=== PATIENT | female | born 1945 | race Caucasian/White ===

== ENCOUNTER 2016-12-23 14:05 | Inpatient (IN) | payer OTHER, MEDICARE, MEDICAID ==
[~2016-12-23] VITALS: Ht 165.1 cm; Wt 85.6 kg
[~2016-12-23 14:05] MED LIST: CEPH-512 PO
[2016-12-23 14:11] VITALS: BP 108/44; PULSE 73; RESP 21; O2SAT 100
--- NOTE | 2016-12-23 14:31 | ED.REPORT ---
HPI-Trauma Minor / Fall Date of Service Dec 23, 2016 ED Provider: Dr. Constantino A 71 year old female with a history of UTI and chronic kidney disease presents to the ED via EMS complaining of severe right hip pain onset 1 week ago after the patient experienced GLF. Pain is rated 8/10 and has prevented the patient from being able to walk or sleep. She reports being barely able to move. She has not showered since the GLF, and her son has been cleaning her with wipes after she uses the bathroom. She has dramatic skin irritation with breakdown and heavy purulent discharge in between her legs. She reports no dysuria. Nursing Notes Stated Complaint: HIP PAIN Chief Complaint: Extremity Trauma Nursing Notes Reviewed: Yes Allergies: Coded Allergies: Penicillins (Verified Allergy, Unknown, 03/11/15) peanut (Verified Allergy, Unknown, 03/11/15) Scheduled Naproxen (Naproxen) 250 Mg Tablet 500 MG PO QID "TAKES 2 EVERY 4 HOURS WHILE AWAKE" General Time Seen by MD: 14:30 Chief Complaint Extremity pain (right hip pain) Hx Obtained From: Patient, Spouse, EMS Arrived By: Ambulance Onset Occurred: 1 week ago Symptom Duration: Since onset Location: Hip right Severity: Current: Pain level 8 out of 10 Severity: Maximum: Pain level 8 out of 10 Recent Healthcare: No recent doctor visit Similar Sx Previous: No Past Medical History Past Medical History Notes: Allergic to penicillin. She has taken Percoet before. Past Medical History Chronic kidney disease History of UTI Alcohol abuse, sober fro 22 years. Reports: Asthma Reports: Dementia Smoking History Never Smoker Social History Alcohol Use: Denies alcohol use (sober for 22 years) Drug Use: Denies drug use Review of Systems Review of Systems Note: Difficulty walking due to pain. Difficulty sleeping due to pain. Constitutional: Denies: Chills, Fever Musculoskeletal: Reports: Extremity pain (Right hip pain) Skin: Reports Rash (Irritation Inbetween legs) Complete sys rev & neg: except as marked. Physical Exam Physical Exam Notes: Initial Vital Signs Vital Signs (First) Date Time Temp Pulse Resp B/P Pulse Ox O2 Delivery O2 Flow Rate FiO2 12/23/16 14:11 36.5 73 21 108/44 100 Room Air Initial VS: Reviewed General/Constitutional: Awake Alertness: Positive: Confused (unclear if this is new, or baseline) Neck: Atraumatic, Full range of motion Head / Eyes: Atraumatic, Normocephalic, PERRL, EOMI ENT: Atraumatic, Mucous membranes moist Respiratory / Chest: Atraumatic, Breath sounds NL, Breath sounds = bilat, No respiratory distress, No rales, No rhonchi, No wheezing Cardiovascular: Heart rate NL, Regular rhythm, Heart sounds NL, No gallop, No murmurs, No rubs Abdomen: Soft, No guarding, No rebound Right Hip: Positive: Tenderness present... (Patient is quite tender over her right hip, to the point where she is not able to move.) no abrasions or contusions over the right hip. Dramatic excoriation, discharge and purulence involving inguinal fold, mons pubis, perineum with some extention up to the perirectal/sacral area Interpretation & Diagnostics Lab Results Interpretation Result Diagram: 12/23/16 1700 12/23/16 1700 Test 12/23/16 17:00 12/23/16 17:10 White Blood Count 10.0th/mm3 (3.8-10.1) Red Blood Count 3.46mil/mm3 (3.90-5.20) Hemoglobin 10.0g/dL (12.0-15.6) Hematocrit 32.7% (35.0-46.0) Mean Corpuscular Volume 94.5fL (81-100) Mean Corpuscular Hemoglobin 28.9pg (27.0-35.0) Mean Corpuscular Hemoglobin Concent 30.6% (32.0-37.0) Red Cell Distribution Width 13.1% (12.3-15.4) Platelet Count 463bil/L (150-400) Neutrophils (%) (Auto) 75.2% (40-74) Lymphocytes (%) (Auto) 10.4% (14-46) Monocytes (%) (Auto) 7.5% (4-12) Eosinophils (%) (Auto) 1.2% (0-5) Basophils (%) (Auto) 0.7% (0-3) Reticulocyte Count,Calculated 1.6% (0.6-2.6) Hold Purple Top Tube Received (Received) Hold Blue Top Tube Received (Received) Sodium Level 135mEq/L (134-144) Potassium Level 5.0mEq/L (3.5-5.2) Chloride Level 106mEq/L (97-108) Carbon Dioxide Level 13mmol/L (18-29) Blood Urea Nitrogen 58mg/dL (8-27) Creatinine 5.88mg/dL (0.57-1.00) Estimat Glomerular Filtration Rate 10mL/min (>59) Glucose Level 94mg/dL (60-99) Lactic Acid Level 0.6mmol/L (0.4-2.0) Calcium Level 8.7mg/dL (8.5-10.1) Magnesium Level 2.1mg/dL (1.6-2.6) Total Bilirubin 0.4mg/dL (0.0-1.2) Aspartate Amino Transf (AST/SGOT) 12U/L (0-50) Alanine Aminotransferase (ALT/SGPT) 7U/L (0-32) Alkaline Phosphatase 112U/L (25-165) Total Protein 7.5g/dL (6.4-8.4) Albumin 2.6g/dL (3.4-5.0) Lipase 81U/L (13-60) Hold [place] Top Tube Received (Received) Hold [place] Top Tube Received (Received) Urine Color Yellow (YELLOW) Urine Appearance Turbid (CLEAR,HAZY) Urine pH 7.5 (5.0-8.0) Urine Specific [place] 1.020 (1.003-1.035) Urine Protein >300mg/dL (NEG,TRACE) Urine Glucose (UA) Negativemg/dL (NEGATIVE) Urine Ketones Negativemg/dL (NEGATIVE) Urine Occult Blood Moderate (NEGATIVE) Urine Nitrite Negative (NEGATIVE) Urine Bilirubin Negative (NEGATIVE) Urine Urobilinogen Normalmg/dL (NORMAL) Urine Leukocyte Esterase Moderate (NEGATIVE) Urine RBC 3-10/hpf (0-2) Urine WBC Packed/hpf (0-5) Urine Epithelial Cells Many/hpf (NONE-MOD) Urine Crystals None seen (NONE SEEN) Urine Bacteria Many/hpf (NONE-FEW) Urine Hyaline Casts None/lpf (NONE) Urine Granular Casts None seen (NONE SEEN) Urine Waxy Casts None seen (NONE SEEN) Urine Red Blood Cell Casts None seen (NONE SEEN) Urine White Blood Cell Casts None seen (NONE SEEN) Urine Mucus None seen (None Seen) Urine Trichomonas None seen (NONE SEEN) Urine Yeast None (NONE SEEN) Urinalysis Comment Amorphous sediment Urine Culture Reflexed Indicated X-Ray Interpretation Xray Interpretation: PROCEDURE: X-RAY PELVIS W/LAT HIP (RT) ([id number]) IMPRESSION: Suspect a displaced fracture of the superior acetabulum. Dictated by: Enrique Patel M.D. on 12/23/2016 at 15:26 Approved by: Enrique Patel M.D. on 12/23/2016 at 15:33 Interpretation / Wet Read by: Interpret - Radiologist CT Abd / Pelvis Interpretation IMPRESSION: 1. No right hip fracture is evident. If there remains high clinical concern for a subtle right hip fracture, please consider obtaining an MRI of the hip for better evaluation. 2. Mild to moderate degenerative changes and osteopenia of the imaged bony structures of the pelvis. 3. Prominent thickening of the urinary bladder wall with surrounding edema and corresponding distal bilateral hydroureter and periureteral edema is suspicious for an ascending urinary tract infection. An infiltrative/neoplastic process is felt to be less likely, but cannot be completely excluded. Please correlate clinically. Dictated by: Satya Mccarthy M.D. on 12/23/2016 at 15:17 Approved by: Satya Mccarthy M.D. on 12/23/2016 at 15:25 Interpretation / Wet Read by: Interpret - Radiologist Re-Eval/Medical Decision Med Decision/Clinical Course 71-year-old woman presents 1 week after a fall complaining of severe right hip pain progressing to the point where she is unable to walk. Initial x-rays suggest an acetabular fracture. Follow-up CT scan suggests no fracture that inflamed bladder with hydronephrosis. Labs are obtained and show no elevated white count but new renal failure. Dramatic excoriation in the perineum and inguinal areas. Nursing staff has gently cleaned and appropriately dressed the area with placement of Barakat. Gross purulence from Barakat. No fever no hypertension no tachycardia unclear of her confusion is related to infectious disease are as her baseline dementia and related to pain. Unclear what exactly is going on with her bladder and the infection that appears to be a descending rather than descending and acute pyelonephritis at this point. Please placed fluids are continued antibiotics in the form of ceftriaxone are started. Purulent discharge is cultured dressings and wound care will be needed for the perineal excoriations. Findings and concerns . With patient and her son. She will be admitted for additional care. We will need nephrology consult and may in fact need urology consult given the swollen bladder and hydronephrosis findings on CT scan Source of Hx: Old records, EMS Re-Evaluation/Progress : Time of Eval: 15:51 Re-Evaluation/Progress Note: Rechecked patient. She has been able to use the bathroom in bed campuzano. Explained possible fracture. Explained reasoning for ordering CT. Explained plan for admission. Patient understands and agrees with the plan. All questions addressed. Consultation : Referral / Consult Name: Giovanna Mackey MD Consulted With: Hospitalist Call Returned at: 18:24 Transportation Officer: Agrees with eval, Agrees with plan, Accepts admit Note: Dsicussed patient case with Dr. Mackey who accepts patient admit. Counseled Regarding: Diagnosis, Lab results, Need for follow-up, Need for admission Discharge & Departure Impression: Primary Impression: Acute renal failure Additional Impressions: UTI (urinary tract infection) Bilateral hydronephrosis Skin breakdown Ruled Out: Hip fracture, Acetabular fracture Disposition: ADMITTED TO HOSPITAL Discharge Condition All VS Reviewed: Yes Condition: Stable Referrals: Maximiliano Nagel MD (PCP) Girish Attestation Portions of this note were transcribed by Alfred Brooks. I, Dr. Constantino personally performed the history, physical exam and medical decision-making; I reviewed and confirmed the accuracy of the information in the transcribed note. Signed by: Girish Taylor, 12/23/2016, 1843. copies to: Maximiliano Nagel MD, Shawna L MD Dec 23, 2016 14:31 Alfred Brooks Dec 23, 2016 14:37
[2016-12-23] MEDS ORDERED: oxyCODONE-Acetamin 5-325 mg Tablet PO ONE (14:40)
--- NOTE | 2016-12-23 15:35 | DRSVH ---
PROCEDURE: X-RAY PELVIS W/LAT HIP (RT) ([id number]) INDICATIONS: pain, fell one week ago TECHNIQUE: AP pelvis with lateral view(s) of the right hip(s). COMPARISON: None. FINDINGS: Bones: There is cortical irregularity above the superior acetabulum and appearance of a displaced fra gment. No dislocations. Pelvic ring appears intact. No suspicious bony lesions. Soft tissues: The visualized bowel gas pattern is normal. No suspicious soft tissue calcifications. Scattered colonic diverticula are noted. IMPRESSION: Suspect a displaced fracture of the superior acetabulum. Dictated by: Enrique Patel M.D. on 12/23/2016 at 15:26 Approved by: Enrique Patel M.D. on 12/23/2016 at 15:33
--- NOTE | 2016-12-23 16:26 | DRSVH ---
PROCEDURE: CT PELVIS WITHOUT CONTRAST ([id number]) INDICATIONS: suspected acetabular fracture, pain in hip TECHNIQUE: After the administration of oral contrast, 5 mm thick sections acquired from the iliac crests to the symphysis. 5 mm coronal and sagittal reformats were then performed. For radiation dose reduction, t he following was used: automated exposure control, adjustment of mA and/or kV according to patient s ize. COMPARISON: [facility], CR, XR PELVIS W LATERAL HIP RT, 12/23/2016, 15:07. FINDINGS: Image quality: Diagnostic. Soft tissues: Included soft tissues of the pelvis demonstrates aortic and iliac atherosclerosis. Im aged bowel loops are nondilated. No free fluid, loculated fluid collection or free air is evident. No lymphadenopathy is identified. No significant inguinal hernias are evident. The uterus and ovari es are not enlarged. There is prominence of the urinary bladder wall, which is not well evaluated on this exam with possible surrounding edema within the adjacent mesentery. Additionally, there is dil atation of the distal ureters with thickening of the urothelial ortiz and periureteral edema. Scatte red subcutaneous calcifications are evident on the posterior aspect of the pelvis and within the hesham on of the umbilicus. Bones: The bone mineralization is diffusely decreased throughout the pelvis, which does result in dif ficulty evaluating for very subtle fractures of the head, acetabulum, or other pelvic bones. However , no displaced or definite fracture is identified involving the osseous structures of the right hip. Specifically, the superior acetabulum appears to be intact. The remainder of the imaged osseous str uctures of the pelvis are otherwise within normal limits. Specifically, the superior and inferior pu bic rami on the right are intact. There are mild to moderate degenerative changes of the bilateral h ips and sacroiliac joints. Moderate degenerative changes of the included lower lumbar spine are pres ent. IMPRESSION: 1. No right hip fracture is evident. If there remains high clinical concern for a subtle right hip fracture, please consider obtaining an MRI of the hip for better evaluation. 2. Mild to moderate degenerative changes and osteopenia of the imaged bony structures of the pelvis. 3. Prominent thickening of the urinary bladder wall with surrounding edema and corresponding distal bilateral hydroureter and periureteral edema is suspicious for an ascending urinary tract infection. An infiltrative/neoplastic process is felt to be less likely, but cannot be completely excluded. Pl ease correlate clinically. Dictated by: Satya Mccarthy M.D. on 12/23/2016 at 15:17 Approved by: Satya Mccarthy M.D. on 12/23/2016 at 15:25
[2016-12-23 17:27] VITALS: BP 128/74; PULSE 71; RESP 21; O2SAT 98
[2016-12-23] MEDS ORDERED: 0.9% Sodium Chloride 1,000 ML IV ONE ×2 (17:32→18:14)
[2016-12-23 17:45] LABS: APPEARANCE,URINE TURBID (CLEAR,HAZY); COLOR,URINE YELLOW (YELLOW); OCCULT BLOOD,URINE MODERATE (NEGATIVE); PH,URINE 7.5 (5.0-8.0); UROBILINOGEN,URINE NORMAL (NORMAL)
[2016-12-23 17:47] LABS: EOSINOPHILS % (AUTO) 1.2 % (0-5)
[2016-12-23 17:48] LABS: Magnesium 2.1 mg/dL (1.6-2.6)
[2016-12-23 17:50] LABS: BASOPHILS % (AUTO) 0.7 % (0-3); MONOCYTES % (AUTO) 7.5 % (4-12); Mean Corpuscular Hemoglobin 28.9 pg (27.0-35.0); Mean Corpuscular Volume 94.5 fL (81-100); NEUTROPHILS % (AUTO) 75.2 % (40-74); Platelet Count 463 bil/L (150-400)
[2016-12-23] MEDS: HYDROmorphone 0.5 mg/0.5 mL iSecure Syringe IVPUSH PRN (17:57)
[2016-12-23] MEDS ORDERED: cefTRIAXone Inj 2,000 MG in Dextrose 5% Minibag Plus 50 ML IV ONE (18:15)
[2016-12-23] MEDS ORDERED: NAPR250T PO (18:58)
[2016-12-23] MEDS ORDERED: Ondansetron 2 mg/mL 2 mL Inj IVPUSH PRN (19:00)
[2016-12-23] MEDS ORDERED: Alum-Mag Hydrox-Simeth 30 mL Suspension PO PRN (19:00)
[2016-12-23] MEDS ORDERED: Polyethylene Glycol (PEG) 17 Gm Powder PO PRN (19:00)
[2016-12-23] MEDS ORDERED: 0.9% Sodium Chloride 1,000 ML IV SCH (19:00)
[2016-12-23 19:09] VITALS: BP 135/65; PULSE 81; RESP 17; O2SAT 98
[2016-12-23 19:52] VITALS: BP 135/65; PULSE 81; RESP 17; O2SAT 98
--- NOTE | 2016-12-23 19:52 | PCM.HPMED ---
Subjective Date of Service Dec 23, 2016 Primary Provider: Admitting Physician: Primary Care Physician: Maximiliano Nagel MD Attending Physician: History of Present Illness: Chief Complaint: RIght Hip hurts HISTORY was OBTAINED FROM PATIENT-poor historian / [employer] NOTES History of present illness: 71-year-old female complained of falling a week ago and complaining that her right hip hurt. In the ER, hip xray was indeterminant , w/ subsequent CT negative for hip fracture but demonstrated thickening bladder wall, and with insertion of Harper, purulent fluid was noted with a macerated genital area. Son indicated to ER doc that she has not been voiding well and that she needs to broker in charge order to collect whatever dribbles out or wears adult depends - unclear if months or weeks. prior UTIs, prior yeast infections. no prior boils. no bedbugs. Pt seems to have itch/superficial hip area pain, not tender to palpation In the ER vital signs stable, tolerated use, Dilaudid, Rocephin 2 g, saline, Percocet Review of Systems - none of the following - F/C/sick contact / wt change/ MARIE / lightheaded / dizziness / sob / cough / cp / acid reflux / abdominal pain/n/v/ diarrhea / bleeding/bruising / leg swelling Ambulates FAMILY HX poor historian unable to obtain SOCIAL HX:Never Smoker MEDICATIONS: Cephalexin (Keflex) 500 Mg Capsule 500 MG PO BID PAST MEDICAL/SURGICAL HISTORY: Chronic kidney disease History of UTI Alcohol abuse, sober fro 22 years. Asthma childhood, no recent inhaler use Dementia Coded Allergies: Penicillins (Verified Allergy, Unknown, 03/11/15) peanut (Verified Allergy, Unknown, 03/11/15) Exam on admission: on room air, eating meal by self NAD alert, mood affect WNL fatigued NC/AT / No icterus / No injected eyes / EOMI PERRL / No pharyngeal lesions/ No oral lesions / hearing intact Supple neck CTAB equal chest rise / no accessory muscle use / speaks in full sentences / no RRW RRR S1 S2 / no MRG / 2+ radial pulses Soft nt nd + BS no hepatosplenomegaly Lower extremities - No edema No cyanosis No ecchymosis diffuse perineal perianal buttocks exocriating rash / No jaundice GALLEGOS, moves in bed by self Symmetrical facies STUDIES: lactic acid pending UA moderate leukocyte esterase, packed WBCs, negative nitrite, positive epithelial cells, positive bacteria, negative yeast CULTURE - urine, blood pending LFT IMAGING: PROCEDURE: CT PELVIS WITHOUT CONTRAST ([id number]) INDICATIONS: suspected acetabular fracture, pain in hip TECHNIQUE: After the administration of oral contrast, 5 mm thick sections acquired from the iliac crests to the symphysis. 5 mm coronal and sagittal reformats were then performed. For radiation dose reduction, the following was used: automated exposure control, adjustment of mA and/or kV according to patient size. COMPARISON: [facility], CR, XR PELVIS W LATERAL HIP RT, 12/23/2016, 15:07. FINDINGS: Image quality: Diagnostic. Soft tissues: Included soft tissues of the pelvis demonstrates aortic and iliac atherosclerosis. Imaged bowel loops are nondilated. No free fluid, loculated fluid collection or free air is evident. No lymphadenopathy is identified. No significant inguinal hernias are evident. The uterus and ovaries are not enlarged. There is prominence of the urinary bladder wall, which is not well evaluated on this exam with possible surrounding edema within the adjacent mesentery. Additionally, there is dilatation of the distal ureters with thickening of the urothelial ortiz and periureteral edema. Scattered subcutaneous calcifications are evident on the posterior aspect of the pelvis and within the region of the umbilicus. Bones: The bone mineralization is diffusely decreased throughout the pelvis, which does result in difficulty evaluating for very subtle fractures of the head , acetabulum, or other pelvic bones. However, no displaced or definite fracture is identified involving the osseous structures of the right hip. Specifically, the superior acetabulum appears to be intact. The remainder of the imaged osseous structures of the pelvis are otherwise within normal limits. Specifically, the superior and inferior pubic rami on the right are intact. There are mild to moderate degenerative changes of the bilateral hips and sacroiliac joints. Moderate degenerative changes of the included lower lumbar spine are present. IMPRESSION: 1. No right hip fracture is evident. If there remains high clinical concern for a subtle right hip fracture, please consider obtaining an MRI of the hip for better evaluation. 2. Mild to moderate degenerative changes and osteopenia of the imaged bony structures of the pelvis. 3. Prominent thickening of the urinary bladder wall with surrounding edema and corresponding distal bilateral hydroureter and periureteral edema is suspicious for an ascending urinary tract infection. An infiltrative/neoplastic process is felt to be less likely, but cannot be completely excluded. Please correlate clinically. PROCEDURE: X-RAY PELVIS W/LAT HIP (RT) ([id number]) INDICATIONS: pain, fell one week ago TECHNIQUE: AP pelvis with lateral view(s) of the right hip(s). COMPARISON: None. FINDINGS: Bones: There is cortical irregularity above the superior acetabulum and appearance of a displaced fragment. No dislocations. Pelvic ring appears intact. No suspicious bony lesions. Soft tissues: The visualized bowel gas pattern is normal. No suspicious soft tissue calcifications. Scattered colonic diverticula are noted. IMPRESSION: Suspect a displaced fracture of the superior acetabulum. Active issues and reason for admission UTI causing radiographic bladder wall thickening and distal hydronephrosis and associated KEY on CKD3, with reactive thrombocytopenia --IVF, harper, monitor i/o/electrolytes, pending nephrology -- urology was curbsided Dr. Scott, anticipate calling urology on discharge for office follow up and send home w/ harper until follow up w/ outpatient urology, but if Cr no better with UTI management then officially consult the urologist. Associated excoriated perineum --nystatin Normocytic anemia, likely due to CKD --pending TSH/B12/retic/iron panel --hold fecal occult-likely would be positive due to diffuse excorireticuation of perineum Elevated lipase, likely false positive --tolerating meals GLF 1 week ago, unclear if from debility --pending PT Chronic issues known prior to admission, present on admission no home medications dementia/hx EtOH CKD baseline Cr 2.7-3.1 Diet regular DVT prophylaxis heparin scd Code full Assessment and plan were discussed with patient Allergies Coded Allergies: Penicillins (Verified Allergy, Unknown, 03/11/15) peanut (Verified Allergy, Unknown, 03/11/15) PMH Social History Hx Alcohol Use: Yes ("RECOVERY FOR 28 YEARS") Hx Substance Use: No Smoking Status: Never Smoker Exam Vital Signs Vital Sign - Last Date Time Temp Pulse Resp B/P Pulse Ox O2 Delivery O2 Flow Rate FiO2 12/23/16 17:27 71 21 128/74 98 Room Air 12/23/16 14:11 36.5 Lab and Diagnostics Result Diagram: 12/23/16 1700 12/23/16 1700 Giovanna Mackey MD Dec 23, 2016 19:05
[2016-12-23 20:25] VITALS: BP 149/78; PULSE 71; RESP 22; O2SAT 99
[2016-12-23] MEDS: 0.9% Sodium Chloride 1,000 ML IV SCH (20:46)
--- NOTE | 2016-12-23 20:56 | NUR ---
Admit nurse note Several parts of admission assessment completed in the ED based on pt. report. Pt. declines advance directives information. Allergies verified and sticker placed on nameband. Med history obtained and recorded by ED Pharmacist.
--- NOTE | 2016-12-23 23:01 | NUR ---
admit note pt to floor with harper in place, thick, pus like urine draining, pt unable to follow simple directions, appears a little confused able to state she is in the hospital and lives with her but unable to answer some of the medical questions. called pts who wasn't able to give me much medical history either. pt on RA makes a snorting/grunting noise at times. NS at 80cc/hr started, SCDs placed, pt c/o pain in left hip then will state its the right hip. per x-ray possible right hip displacement. pt moves all over bed. orientated pt to call light, bed and room as much as passable. tele SR
[2016-12-24] VITALS (8 sets, daily range): BP systolic 126–145; BP diastolic 62–82; PULSE 70–90; RESP 16–24; O2SAT 97–100
[2016-12-24] MEDS: Heparin 5,000 Unit/mL Inj SUBQ SCH ×3 (00:05→16:30)
[2016-12-24] MEDS: HYDROmorphone 0.5 mg/0.5 mL iSecure Syringe IVPUSH PRN ×2 (00:05→23:59)
[2016-12-24 02:26] LABS: Mean Corpuscular Hemoglobin 29.3 pg (27.0-35.0); Mean Corpuscular Volume 97.5 fL (81-100); Platelet Count 365 bil/L (150-400)
[2016-12-24 02:38] LABS: BASOPHILS % (AUTO) 0 % (0-3); EOSINOPHILS % (AUTO) 1 % (0-5); MONOCYTES % (AUTO) 9 % (4-12); NEUTROPHILS % (AUTO) 74 % (40-74)
[2016-12-24] MEDS: 0.9% Sodium Chloride 1,000 ML IV SCH (09:20)
[2016-12-24 09:36] LABS: OSMOLALITY, URINE 413 mOs/kH2O (250-1200)
--- NOTE | 2016-12-24 11:02 | PCM.PNMED ---
Subjective Date of Service Dec 24, 2016 Subjective Patient alert but not oriented. Elderly female with harper in place and pus like urine draining. Denies pain at the moment. Exam Vital Signs Vital Sign - Last Date Time Temp Pulse Resp B/P Pulse Ox O2 Delivery O2 Flow Rate FiO2 12/24/16 09:00 36.4 83 126/63 98 Room Air 12/24/16 03:48 23 Intake and Output 12/23/16 12/23/16 12/24/16 Cumulative From/Thru 15:00 23:00 07:00 12/23/16 14:11 - 12/24/16 05:51 Intake Total 1000 ml 1174 ml 2174 ml Output Total 600 ml 600 ml Balance 1000 ml 574 ml 1574 ml Intake Oral 300 ml 300 ml IV Total 1000 ml 874 ml 1874 ml Output Urine Total 600 ml 600 ml Exam General: no acute distress, alert but not oriented Lungs: Clear to auscultation anteriorly, no accessory muscle use Heart: Regular rate and rhythm, no murmurs noted Abdomen: Soft, nontender, nondistended Extremities: No edema,cyanosis, ecchymosis Genitourinary: Harper in place, erythematous skin around perineum Lab and Diagnostics Result Diagram: 12/24/1621812/24/16218 X-Rays, CTs and MRIs X-RAY PELVIS W/LAT HIP IMPRESSION: Suspect a displaced fracture of the superior acetabulum. Dictated and approved by: Enrique Patel M.D. on 12/23/2016 at 15:26 CT PELVIS WITHOUT CONTRAST IMPRESSION: 1. No right hip fracture is evident. If there remains high clinical concern for a subtle right hip fracture, please consider obtaining an MRI of the hip for better evaluation. 2. Mild to moderate degenerative changes and osteopenia of the imaged bony structures of the pelvis. 3. Prominent thickening of the urinary bladder wall with surrounding edema and corresponding distal bilateral hydroureter and periureteral edema is suspicious for an ascending urinary tract infection. An infiltrative/neoplastic process is felt to be less likely, but cannot be completely excluded. Please correlate clinically. Dictated and approved by: Satya Mccarthy M.D. on 12/23/2016 at 15:17 Assessment & Plan Pina Gonzalez is a 71-year-old female with history of chronic kidney disease and dementia presented to [facility] Emergency Department with right hip pain status post ground level fall one week ago. Patient has been admitted for further management and treatment of urinary tract infection and acute on chronic kidney injury. 1. Urinary tract infection, present on admission. Active -Positive UA growing gram negative rods, probably E. coli -Harper catheter inserted in ED -CT findings: prominent thickening of the urinary bladder wall with surrounding edema and corresponding distal bilateral hydroureter and periureteral edema -Nephrology following -Ceftriaxone IV started in ED, continue current management -Continue to monitor 2. Acute on chronic kidney injury, present on admission. Active -Creatinine baseline 2.7-3.1, but markedly increased creatinine of 5.88 on admission and 5.99 this morning -Patient is not on any home meds but was taking Aleve for hip pain -Nephrology following -D5W with Sodium Bicarbonate at 100ml/hr per nephrology -Continue to monitor 3. Right hip pain secondary to ground level fall, present on admission. Active -No right hip fracture is evident on CT. If there remains high clinical concern for a subtle right hip fracture, we will consider obtaining an MRI of the hip for better evaluation. -Pain control: dilaudid 0.5 mg every 2 hours as needed for pain -PT evaluation pending 4. Normocytic anemia, present on admission. Active -Most likely due to CKD -Iron panel pending -Continue to monitor Disposition: Patient admitted on inpatient status with expected length of stay more that 2 midnights Pain Evaluation: Adequate Pain Control VTE Prophylaxis: Sub-Q Heparin (Unfractionated) VTE Mechanical Devices: Intermittant Pneumatic CD Resuscitation Status: CPR: Attempt Resuscitation Attending Statement The patient was seen and examined together with House Staff/Resident on 12/24/16 and I agree with the history, exam and plan as outlined in the note above. Stefania Nolasco DO Dec 24, 2016 11:02 Dimas Terrell Dec 28, 2016 19:20
[2016-12-24] MEDS: Sodium Bicarb 8.4% Inj 150 MEQ in Dextrose 5% 1,000 ML IV SCH (11:50)
--- NOTE | 2016-12-24 12:51 | NUR ---
Poor historian Pt confused when asked questions regarding where she lived, past medical history. Pt also confused about the IV, unsure what it was called and why it was in her arm. Reoriented pt. notified.
--- NOTE | 2016-12-24 14:25 | ABG ---
DateTimeAnalyzed 14:19:58 -_ pH ____7.205 - pCO2 ___35.1__ -mmHg pO2 ___31.2__ -mmHg HCO3- ___13.9__ -mmol/L ABE __-12.9__ -mmol/L tHb ____9.8__ -g/dL O2Hb ___59.1__ -% COHb ____1.4__ -% MetHb ____0.5__ -% sO2 ___60.2__ -% FIO2 ___21.0__ -% Drawn By BTL - Date/Time Notified____ 14:25:00 -_ Notified By BTL - Notified Whom ___DR. ANANTHAPANYASUT -_ B 762 -mmHg K+ ____4.3__ -mmol/L tO2 ____8.1__ -Vol% Giovanny test N/A -
--- NOTE | 2016-12-24 14:59 | PCM.CHPMED ---
Subjective Date of Service: Dec 24, 2016 Provider requesting consult: Giovanna Mackey MD Primary Physician: Admitting Physician: Giovanna Mackey MD Primary Care Physician: Maximiliano Nagel MD Attending Physician: Giovanna Mackey MD Admit Status: From the Emergency Department Chief Complaint: Chief Complaint: Right hip pain History of Present Illness: The patient is a 71-year-old female with past medical history remarkable for gout and arthritis who presents with right hip pain secondary to a ground-level fall 1 week ago. Pain is rated 8/10 and has prevented the patient from being able to walk or sleep. The patient states that she is normally not on ambulatory and her must care for her however the patient reports that several days ago she was ambulating from her bed to the kitchen and fell on ceramic tile injuring her right hip. The patient states that she has never had any pain in her right leg like this before. The patient typically suffers from urinary incontinence for which she wears adult disposable diapers. The patient states that she does have a history of gout and osteoarthritis for which she takes Aleve 2 tabs every 4 hours for the last 5 years. The patient denies any history of chronic kidney disease and does not believe she is ever been told that she has protein or blood in her urine. The patient denies any history of kidney stones, yellow jaundice or hepatitis, HIV, IV drug use, diabetes or chronic urinary tract infections. She believes last time she had a urinary tract infection was perhaps one year ago when she was placed on antibiotics however she cannot remember the specifics. She was previously seen by a doctor in [place] and however that her doctor has since retired and now lives in [place]. The patient appears to be a mildly poor historian. Review of Systems: Review of systems is obtained and all are negative except for what is included in the history of present illness. PMH Past Medical History Asthma Gout Osteoarthritis Urinary incontinence 3 normal vaginal deliveries Surgical History Denies Home Medications Naproxen 2 tabs every 4 hours for the last 5 years Allergies: Coded Allergies: Penicillins (Verified Allergy, Intermediate, Nausea,Vomiting, 12/23/16) peanut (Verified Allergy, Intermediate, Nausea,Vomiting, 12/23/16) Family History Family History The patient was adopted with no known family history of any diseases Social History Hx Alcohol Use: NoHx Substance Use: NoHx Tobacco Use: No Smoking Status: Never Smoker Exam Vital Signs Vital Sign - Last Date Time Temp Pulse Resp B/P Pulse Ox O2 Delivery O2 Flow Rate FiO2 12/24/16 11:05 36.7 77 20 127/62 100 Room Air Intake and Output 12/23/16 12/23/16 12/24/16 Cumulative From/Thru 15:00 23:00 07:00 12/23/16 14:11 - 12/24/16 05:51 Intake Total 1000 ml 1174 ml 2174 ml Output Total 600 ml 600 ml Balance 1000 ml 574 ml 1574 ml Intake Oral 300 ml 300 ml IV Total 1000 ml 874 ml 1874 ml Output Urine Total 600 ml 600 ml Additional Information: Gen.: Patient is alert and oriented 3, in no acute distress Eyes: Pupils equal round reactive to light, mildly dry mucous membranes with pale conjunctiva, anicteric sclera HENT: Normocephalic atraumatic, dry mucous membranes without central cyanosis or cobblestoning mucosal Neck: No JVD noted. Trachea midline without lymphadenopathy or thyromegaly Cardiovascular: Regular rate and rhythm with no murmurs rubs or gallops noted Lungs: Clear to auscultation bilaterally without wheezing rales or rhonchi Abdomen: Normoactive bowel sounds, nontender, nondistended Extremities: No cyanosis clubbing or edema noted, pulses intact bilaterally dorsalis pedis and radial arteries, right hand is contracted and closed and painful to attempt to open MSK: Strength intact in bicep tricep and deltoid, no pain on palpation of the right hip Skin: Decreased turgor, warm and dry, no erythema or rashes noted Neuro: No focal neurologic deficits noted, able to move all extremities except for chronic contracted right hand Psych: Normal mood and affect Lab and Diagnostics Result Diagram: 12/24/1621812/24/16 0219 X-Rays, CTs and MRIs CT PELVIS WITHOUT CONTRAST ([id number]) IMPRESSION: 1. No right hip fracture is evident. If there remains high clinical concern for a subtle right hip fracture, please consider obtaining an MRI of the hip for better evaluation. 2. Mild to moderate degenerative changes and osteopenia of the imaged bony structures of the pelvis. 3. Prominent thickening of the urinary bladder wall with surrounding edema and corresponding distal bilateral hydroureter and periureteral edema is suspicious for an ascending urinary tract infection. An infiltrative/neoplastic process is felt to be less likely, but cannot be completely excluded. Please correlate clinically. Dictated by: Satya Mccarthy M.D. on 12/23/2016 at 15:17 Approved by: Satya Mccarthy M.D. on 12/23/2016 at 15:25 Additional Diagnostics: Microbiology URINE CULTURE Final 03/13/15-9251 Organism 1 ESCHERICHIA COLI U COLONY COUNT/QUANTITY >100,000 CFU/ml * AMOXICILLIN/CLAVULATE 4 S * AMPICILLIN 8 S * CEFAZOLIN-ORAL UTI 4 S * CEFEPIME <=1 S * CEFTRIAXONE <=1 S * CEFUROXIME SODIUM 4 S * CEFALOTIN 16 I * CIPROFLOXACIN <=0.25 S * ERTAPENEM <=0.5 S * GENTAMICIN <=1 S * IMIPENEM <=1 S * LEVOFLOXACIN <=0.12 S * NITROFURANTOIN <=16 S * PIPERACILLIN <=4 S * TETRACYCLINE 2 S * TOBRAMYCIN <=1 S * TRIMETHOPRIM/SULFAMETHOXAZOLE <=20 S Assessment & Plan Assessment The patient is a 71-year-old female with past medical history remarkable for gout and arthritis who presents with right hip pain secondary to a ground-level fall. 1. Acute urinary tract infection - UA shows packed WBCs with bacteria - Cultures and sensitivity returned today with positive for Escherichia coli with good sensitivities - Avoid nephrotoxic antibiotics like Bactrim - Rocephin 2 g IV daily 2. Likely acute kidney injury on chronic kidney disease - Creatinine at admission was approximately 5.88 - Review of records indicate a baseline creatinine of 1.4-1.5 at approximately 5 years ago - The patient denies any history of chronic kidney disease - History reveals that the patient has been taking Aleve every 4 hours for possibly the last several years - Fractional excretion of sodium calculated at 3% consistent with intrinsic cause - Given poor improvement in creatinine with IV fluids, as well as low calcium high phosphorus and a high potassium, likely chronic condition secondary to chronic NSAID use - Ordered PTH, vitamin D, thyroid panel - Uric acid increased to 7.9 consistent with possible reported gout - Calcium acetate 667 mg 3 times a day for phosphate binding - Urine eosinophils ordered for possible acute interstitial nephritis - D5W with 150 mEq of sodium bicarbonate running at 100 mils per hour IV - Patient will likely need to be evaluated as a dialysis candidate in the very near future - Order a protein creatinine ratio in the next few days once the patient's significant urinary tract infection with bacteria and packed WBCs begins to clear 5. Anemia - Likely secondary to chronic kidney disease with low TIBC and normal iron and ferritin - Patient will likely be a candidate for darbepoetin as well as iron therapy as patient's overall health condition becomes more apparent Problems: Pain Evaluation: Adequate Pain Control VTE Prophylaxis: Sub-Q Heparin (Unfractionated) Berny Prater DO Dec 24, 2016 14:59 Berny Prater DO Dec 24, 2016 14:59
--- NOTE | 2016-12-24 15:25 | NUR ---
Evaluation completed. Please go to "Notes" then click on "Assessments and Notes" (bottom left corner of screen). Then select appropriate discipline tab on top of screen.
--- NOTE | 2016-12-24 15:38 | NUR ---
Social Work- Initial Assessment Data: See Initial Assessment. Pt is a 71year old female admitted 12/23/16 for acute renal failure, UTI per H&P. Pt's insurance is [employer] and [facility]. Pt's PCP is Maximiliano Nagel MD. SW met with pt at bedside regarding discharge plan, SW role explained. Pt alert and oriented x3. Pt resides in [place] with her spouse where she remains independent with ADLs. Pt states her helps her with any needs. 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 Pt has no LTC or VA benefits. Pt has a history at [facility]. Pt has no HH history. Pt has no DPOA listed, pt states that this has been completed and DPOA is Viraj [phone]. SW requested patient bring copy to the hospital. PT worked with pt today, recommending SNF at this time due to decreased stability and decreased strength. PT evaluation was limited as pt was fearful of falling. PT will continue to follow pt at the hospital and progress therapy as tolerated. SW spoke with pt about current PT recommendations, anticipate that pt will progress with PT. Pt stated understanding and agreeable to further conversations about SNF or HH services. Anticipate pt to discharge home with , SW to follow for needs. Assessment: [place] who [place] independent [place]. Plan: PT recommending SNF at this time, but pt may progress during hospitalization. Anticipate pt to discharge home with , SW to follow for needs, including IV therapies, HH, or SNF. LIZY Rincon Addendum: 12/24/16 at 1551 by ALEIDA CHEN Amended: Links added.
--- NOTE | 2016-12-24 19:32 | NUR ---
Call light/memory Pt continues to push call light as soon as this RN walks out of room. Pt educated on making a list to address all of pt needs at one time. Pt continues pushing call light every 5 minutes. Educated again on making a list. Pt states she does not remember education regarding call light. Used white board to remind pt what time RN rounds. Pt becoming more agitated and forgetful from 1600 to end of shift. notified.
[2016-12-24] MEDS: cefTRIAXone Inj 2,000 MG in Dextrose 5% Minibag Plus 50 ML IV SCH (20:34)
[2016-12-25] VITALS (9 sets, daily range): BP systolic 126–145; BP diastolic 62–74; PULSE 73–90; RESP 16–20; O2SAT 96–99
[2016-12-25] MEDS: HYDROmorphone 0.5 mg/0.5 mL iSecure Syringe IVPUSH PRN ×2 (00:04→11:30)
[2016-12-25] MEDS: Sodium Bicarb 8.4% Inj 150 MEQ in Dextrose 5% 1,000 ML IV SCH ×2 (00:04→13:33)
[2016-12-25] MEDS: Heparin 5,000 Unit/mL Inj SUBQ SCH ×3 (00:11→18:31)
[2016-12-25 02:10] LABS: Free Thyroxine Index 1.8 (1.2-4.9); Thyroxine (T4) 6.1 ug/dL (4.5-12.0)
[2016-12-25 02:51] LABS: BASOPHILS % (AUTO) 0.4 % (0-3); EOSINOPHILS % (AUTO) 3.1 % (0-5); MONOCYTES % (AUTO) 10.4 % (4-12); Mean Corpuscular Hemoglobin 28.9 pg (27.0-35.0); Mean Corpuscular Volume 93.4 fL (81-100); NEUTROPHILS % (AUTO) 64.1 % (40-74); Platelet Count 408 bil/L (150-400)
--- NOTE | 2016-12-25 06:47 | NUR ---
Call Light/Activity/Skin Pt continually uses call light and then yells out to get the attention of whomever might be walking by. Pt was educated on when to appropriately use the call light. Pt got OOB and onto the standing scale this AM with a 1 person assist and did not c/o pain in hip when standing. Pt has been scratching skin throughout the night. Pt was educated that the scratching could cause an infection if the skin breaks open.
--- NOTE | 2016-12-25 08:18 | NUR ---
Call light/Skin Pt oriented to call light, to make list on notepad for needs. Pt does not remember visiting last night, stated she thought he called. Nystatin applied to pannus, groin, bottum and belly button. Pt educated on scratching. Care continues.
[2016-12-25] MEDS ORDERED: Darbepoetin Alfa 60 mCg/0.3 mL Inj SUBQ ONE (10:05)
--- NOTE | 2016-12-25 10:08 | PCM.PNNEPH ---
Subjective Date of Service Dec 25, 2016 Subjective no new complaints. starving. no F/C/N/V/CP/SOB. Kidney function slightly improved. Exam Vital Signs Vital Sign - Last Date Time Temp Pulse Resp B/P Pulse Ox O2 Delivery O2 Flow Rate FiO2 12/25/16 08:10 36.9 82 18 135/67 98 Room Air Intake and Output 12/24/16 12/24/16 12/25/16 Cumulative From/Thru 15:00 23:00 07:00 12/23/16 14:11 - 12/25/16 06:45 Intake Total 310 ml 2609 ml 5093 ml Output Total 750 ml 525 ml 1875 ml Balance -440 ml 2084 ml 3218 ml Intake Oral 310 ml 520 ml 1130 ml IV Total 2089 ml 3963 ml Output Urine Total 750 ml 525 ml 1875 ml # Bowel Movements 1 1 Exam Gen.: Patient is alert and oriented 3, in no acute distress Eyes: Pupils equal round reactive to light, mild pallor, anicteric sclera HENT: Normocephalic atraumatic, dry mucous membranes without central cyanosis or cobblestoning mucosal Neck: No JVD noted. Trachea midline without lymphadenopathy or thyromegaly Cardiovascular: Regular rate and rhythm with no murmurs rubs or gallops noted Lungs: Clear to auscultation bilaterally without wheezing rales or rhonchi Abdomen: Normoactive bowel sounds, nontender, nondistended Extremities: no edema, cyanosis or clubbing. : harper cath in place with cloudy, thick and whitish urine Lab and Diagnostics Result Diagram: 12/25/16 0235 12/25/16 0235 X-Rays, CTs and MRIs X-RAY PELVIS W/LAT HIP IMPRESSION: Suspect a displaced fracture of the superior acetabulum. Dictated and approved by: Enrique Patel M.D. on 12/23/2016 at 15:26 CT PELVIS WITHOUT CONTRAST IMPRESSION: 1. No right hip fracture is evident. If there remains high clinical concern for a subtle right hip fracture, please consider obtaining an MRI of the hip for better evaluation. 2. Mild to moderate degenerative changes and osteopenia of the imaged bony structures of the pelvis. 3. Prominent thickening of the urinary bladder wall with surrounding edema and corresponding distal bilateral hydroureter and periureteral edema is suspicious for an ascending urinary tract infection. An infiltrative/neoplastic process is felt to be less likely, but cannot be completely excluded. Please correlate clinically. Dictated and approved by: Satya Mccarthy M.D. on 12/23/2016 at 15:17 Plan Impression 1. Severe renal insufficiency: KEY on CKD vs CKD-5. 2. 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 3. Complicated UTI. U/cx E.coli. 4. Hypocalcemia and hyperphosphatemia related to secondary hyperparathyroidism. 5. Anemia of CKD. 6. Anion gap metabolic acidosis secondary to uremia. Plan: continue current IVF and IV abx. continue phoslo. add aranesp 60 mcg subQ x 1. no urgent HD indicated at this moment. Trisha Chowdary MD Dec 25, 2016 10:08
--- NOTE | 2016-12-25 10:10 | NUR ---
[facility] Signed
--- NOTE | 2016-12-25 12:00 | NUR ---
Social Work: Continued Discharge Planning D: Pt discussed in am rounds. Pt is not medically stable for discharge and will likely require several more days of hospitalization. COMMERCIAL COLLECTIONS DRIVER met with pt at bedside to follow up about discharge plan and provide SNF CHOICE LIST. Pt declined to discuss options in regards to SNF. She understands that she may need this at time of discharge if she does not continue to mobilize. Pt expresses that her goal is to return home. COMMERCIAL COLLECTIONS DRIVER supported the pt by encouraging her to mobilize with PT and as tolerated with staff editor. Pt agreed that she would try with PT today. A: Pt who is I at baseline. P: Evolving; Pt to continue to work with PT. COMMERCIAL COLLECTIONS DRIVER to follow pt's clinical progress and follow up with PT notes to determine safe discharge plan with pt. LIZY Segal
--- NOTE | 2016-12-25 14:58 | NUR ---
Sleepy/Call light/IV Pt states she is very sleepy this shift. Pt improvement with call light with continued education to use notepad, pt states she forgets it is there to use. Pt LAC occluded, slight redness with bump, pt sleeps with arm tucked under head. IV DC'd with catheter intact. New IV place in LFA. Pt resting comfortably. Care continues.
--- NOTE | 2016-12-25 16:34 | PCM.PNMED ---
Subjective Date of Service Dec 25, 2016 Subjective Reports continuing to feel better. Denies any new issues/complaints Exam Vital Signs Vital Sign - Last Date Time Temp Pulse Resp B/P Pulse Ox O2 Delivery O2 Flow Rate FiO2 12/25/16 15:43 Room Air 12/25/16 12:10 36.8 84 18 129/70 99 Intake and Output 12/24/16 12/24/16 12/25/16 Cumulative From/Thru 15:00 23:00 07:00 12/23/16 14:11 - 12/25/16 06:45 Intake Total 310 ml 2609 ml 5093 ml Output Total 750 ml 525 ml 1875 ml Balance -440 ml 2084 ml 3218 ml Intake Oral 310 ml 520 ml 1130 ml IV Total 2089 ml 3963 ml Output Urine Total 750 ml 525 ml 1875 ml # Bowel Movements 1 1 General: Alert, Cooperative, No Acute Distress Head: Normal Eyes: Scleral Anicteric Nose: Mucous Membr Moist/[place] Mouth: Mucous Membr Moist/[place] Neck: Supple Chest & Lungs: Chest Wall Normal, Coarse breath sounds (mild bilat) Cardiovascular: Regular Rate/Rhythm Abdomen: Non-tender, Non-distended, Normoactive bowel tones, Soft Extremities: No cyanosis/clubbing/edma bilat Neurological: Grossly Neurologically Intact, Normal Speech IVs and Medications Medications Reviewed: Medications were reviewed in detail Lab and Diagnostics Result Diagram: 12/25/1623412/25/16234 X-Rays, CTs and MRIs X-RAY PELVIS W/LAT HIP IMPRESSION: Suspect a displaced fracture of the superior acetabulum. Dictated and approved by: Enrique Patel M.D. on 12/23/2016 at 15:26 CT PELVIS WITHOUT CONTRAST IMPRESSION: 1. No right hip fracture is evident. If there remains high clinical concern for a subtle right hip fracture, please consider obtaining an MRI of the hip for better evaluation. 2. Mild to moderate degenerative changes and osteopenia of the imaged bony structures of the pelvis. 3. Prominent thickening of the urinary bladder wall with surrounding edema and corresponding distal bilateral hydroureter and periureteral edema is suspicious for an ascending urinary tract infection. An infiltrative/neoplastic process is felt to be less likely, but cannot be completely excluded. Please correlate clinically. Dictated and approved by: Satya Mccarthy M.D. on 12/23/2016 at 15:17 Assessment & Plan 71-year-old female with history of chronic kidney disease and dementia presented to [facility] Emergency Department with right hip pain status post ground level fall one week earlier. 1. Acute urinary tract infection, present on admission. Ongoing -Positive UA growing gram negative rods, probably E. coli. Followup final culture results. -Barakat catheter inserted in ED -CT findings: prominent thickening of the urinary bladder wall with surrounding edema and corresponding distal bilateral hydroureter and periureteral edema -Ceftriaxone IV started in ED, continue current management 2. Acute on chronic kidney injury, present on admission. Improving -Creatinine baseline 2.7-3.1 -Patient is not on any home meds but was taking Aleve for hip pain -Appreciate nephrology consult. Will followup with recommendations: - continue current IVF and IV abx. - continue phoslo. - add aranesp 60 mcg subQ x 1. 3. Right hip pain secondary to ground level fall, present on admission. Active -No right hip fracture is evident on CT. -Continue with supportive care including pain control with IV Dilaudid as needed -PT evaluation 4. Normocytic anemia, present on admission. Stable -Most likely due to anemia of chronic disease and CKD Disposition: Likely 2-3 days pending improve renal function, better pain control and mobility. VTE Prophylaxis: Sub-Q Heparin (Unfractionated) VTE Mechanical Devices: Intermittant Pneumatic CD Dimas Terrell Dec 25, 2016 16:34
[2016-12-25] MEDS: cefTRIAXone Inj 2,000 MG in Dextrose 5% Minibag Plus 50 ML IV SCH (20:26)
[2016-12-26] VITALS (9 sets, daily range): BP systolic 113–165; BP diastolic 65–91; PULSE 67–80; RESP 16–24; O2SAT 94–100
[2016-12-26] MEDS: Heparin 5,000 Unit/mL Inj SUBQ SCH ×3 (00:30→17:56)
[2016-12-26] MEDS: Sodium Bicarb 8.4% Inj 150 MEQ in Dextrose 5% 1,000 ML IV SCH (01:53)
[2016-12-26 02:27] LABS: Mean Corpuscular Hemoglobin 28.8 pg (27.0-35.0); Mean Corpuscular Volume 93.7 fL (81-100)
[2016-12-26 02:44] LABS: INR 1.03 ratio
[2016-12-26 03:41] LABS: Magnesium 1.8 mg/dL (1.6-2.6)
--- NOTE | 2016-12-26 06:25 | NUR ---
Sleep/Pain/Activity Pt was able to sleep through most of the shift. Pt did not c/o pain through the entire shift and was able to go through the entire shift without pain medication. Pt was steady on feet and able to get onto the scale this AM for a standing scale weight with a 1 person assist. Pt has been encouraged to work with PT and get up to chair for meals. Pt is encouraged to do things for herself.
[2016-12-26] MEDS: 0.9% Sodium Chloride 1,000 ML IV SCH ×2 (10:07→23:44)
--- NOTE | 2016-12-26 12:33 | PCM.PNNEPH ---
Subjective Date of Service Dec 26, 2016 Subjective feeling better, no new complaints. no fever/chills. improved UOP. serum cr continue to improve. Exam Vital Signs Vital Sign - Last Date Time Temp Pulse Resp B/P Pulse Ox O2 Delivery O2 Flow Rate FiO2 12/26/16 11:02 67 12/26/16 08:27 36.8 18 142/91 98 Room Air 12/25/16 15:00 6.00 Intake and Output 12/25/16 12/25/16 12/26/16 Cumulative From/Thru 15:00 23:00 07:00 12/23/16 14:11 - 12/26/16 06:23 Intake Total 2219 ml 7312 ml Output Total 900 ml 2775 ml Balance 1319 ml 4537 ml Intake Oral 200 ml 1330 ml IV Total 2019 ml 5982 ml Output Urine Total 900 ml 2775 ml # Bowel Movements 1 Exam Gen.: Patient is alert and oriented 3, in no acute distress Eyes: Pupils equal round reactive to light, mild pallor, anicteric sclera HENT: Normocephalic atraumatic, dry mucous membranes. Neck: No JVD noted. Trachea midline without lymphadenopathy or thyromegaly Cardiovascular: Regular rate and rhythm with no murmurs rubs or gallops noted Lungs: Clear to auscultation bilaterally without wheezing rales or rhonchi Abdomen: Normoactive bowel sounds, nontender, nondistended Extremities: no edema, cyanosis or clubbing. : harper cath in place with yellowing and cloudy urine Lab and Diagnostics Result Diagram: 12/26/1621812/26/16218 X-Rays, CTs and MRIs X-RAY PELVIS W/LAT HIP IMPRESSION: Suspect a displaced fracture of the superior acetabulum. Dictated and approved by: Enrique Patel M.D. on 12/23/2016 at 15:26 CT PELVIS WITHOUT CONTRAST IMPRESSION: 1. No right hip fracture is evident. If there remains high clinical concern for a subtle right hip fracture, please consider obtaining an MRI of the hip for better evaluation. 2. Mild to moderate degenerative changes and osteopenia of the imaged bony structures of the pelvis. 3. Prominent thickening of the urinary bladder wall with surrounding edema and corresponding distal bilateral hydroureter and periureteral edema is suspicious for an ascending urinary tract infection. An infiltrative/neoplastic process is felt to be less likely, but cannot be completely excluded. Please correlate clinically. Dictated and approved by: Satya Mccarthy M.D. on 12/23/2016 at 15:17 Plan Impression 1. Severe renal insufficiency: KEY on CKD. improving. 2. 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 3. Complicated UTI. U/cx E.coli. 4. Hypocalcemia and hyperphosphatemia related to secondary hyperparathyroidism. 5. Anemia of CKD s/p aranesp. worsening, ? dilutional. 6. Anion gap metabolic acidosis secondary to uremia. Plan: Plan: continue IV abx. d/c bicarb gtt. start NS 80 ml/hr. continue phoslo. no urgent HD indicated at this moment. Trisha Chowdary MD Dec 26, 2016 12:33
--- NOTE | 2016-12-26 13:27 | NUR ---
Sleepy/chair/counts numbers out loud Pt asked to not be bothered, stated she has not slept in days. Pt up to chair for one hour for breakfast with [employer]ARCH [employer]OOKER SBA assist. RN SBA for lunch. Pt used walker to get out of bed and into chair, encouraged pt to stay in chair for one hour. Time placed on board for pt to remember. Pt mumbles numbers, counts after answering questions. Denies SOB, denies pain. Care continues.
--- NOTE | 2016-12-26 15:22 | PCM.PNMED ---
Subjective Date of Service Dec 26, 2016 Subjective Denies any new issues/complaints Exam Vital Signs Vital Sign - Last Date Time Temp Pulse Resp B/P Pulse Ox O2 Delivery O2 Flow Rate FiO2 12/26/16 11:41 36.7 76 18 136/87 97 Room Air 12/25/16 15:00 6.00 Intake and Output 12/25/16 12/25/16 12/26/16 Cumulative From/Thru 14:59 22:59 06:59 12/23/16 14:11 - 12/26/16 06:23 Intake Total 2219 ml 7312 ml Output Total 900 ml 2775 ml Balance 1319 ml 4537 ml Intake Oral 200 ml 1330 ml IV Total 2019 ml 5982 ml Output Urine Total 900 ml 2775 ml # Bowel Movements 1 Exam General: Alert, Cooperative, No Acute Distress Head: Normal Eyes: Scleral Anicteric Nose: Mucous Membr Moist/[place] Mouth: Mucous Membr Moist/[place] Neck: Supple Chest & Lungs: Chest Wall Normal, Coarse breath sounds (mild bilat) Cardiovascular: Regular Rate/Rhythm Abdomen: Non-tender, Non-distended, Normoactive bowel tones, Soft Extremities: No cyanosis/clubbing/edema bilat Neurological: Grossly Neurologically Intact, Normal Speech IVs and Medications Medications Reviewed: Medications were reviewed in detail Lab and Diagnostics Result Diagram: 12/26/1621812/26/16218 X-Rays, CTs and MRIs X-RAY PELVIS W/LAT HIP IMPRESSION: Suspect a displaced fracture of the superior acetabulum. Dictated and approved by: Enrique Patel M.D. on 12/23/2016 at 15:26 CT PELVIS WITHOUT CONTRAST IMPRESSION: 1. No right hip fracture is evident. If there remains high clinical concern for a subtle right hip fracture, please consider obtaining an MRI of the hip for better evaluation. 2. Mild to moderate degenerative changes and osteopenia of the imaged bony structures of the pelvis. 3. Prominent thickening of the urinary bladder wall with surrounding edema and corresponding distal bilateral hydroureter and periureteral edema is suspicious for an ascending urinary tract infection. An infiltrative/neoplastic process is felt to be less likely, but cannot be completely excluded. Please correlate clinically. Dictated and approved by: Satya Mccarthy M.D. on 12/23/2016 at 15:17 Assessment & Plan 71-year-old female with history of chronic kidney disease and dementia presented to [facility] Emergency Department with right hip pain status post ground level fall one week earlier. 1. Acute E. Coli urinary tract infection, present on admission. Ongoing -Barakat catheter inserted in ED -CT findings: prominent thickening of the urinary bladder wall with surrounding edema and corresponding distal bilateral hydroureter and periureteral edema -Ceftriaxone IV started in ED, continue current management 2. Acute on chronic kidney injury, present on admission. Improving -Creatinine baseline 2.7-3.1 -Patient is not on any home meds but was taking Aleve for hip pain -Appreciate nephrology consult. Will followup with recommendations: - continue current IVF and IV abx. - continue phoslo. - Aranesp 60 mcg subQ x 1 on 12/25 - d/c bicarb gtt 3. Right hip pain secondary to ground level fall, present on admission. Active -No right hip fracture is evident on CT. -Continue with supportive care including pain control with IV Dilaudid as needed -PT evaluation 4. Normocytic anemia, present on admission. worsening -Most likely due to anemia of chronic disease and CKD and hemodilution -Check stool guaiac Disposition: Likely 2-3 days pending improve renal function, better pain control and mobility. VTE Prophylaxis: Sub-Q Heparin (Unfractionated) VTE Mechanical Devices: Intermittant Pneumatic CD Dimas Terrell Dec 26, 2016 15:22
--- NOTE | 2016-12-26 18:00 | NUR ---
Sleeping/Appetite Pt sleeping majority of this shift. Refusing to eat lunch or dinner. Pt states she lays in bed and eats at home. States she does not sit up to eat and has not in years. States she picks at food and does not eat very much. Encouraged pt to eat and drink Ensure, states Ensure makes her sick. Asked kitchen to send up Ensure Clear, pt refused to drink, asking for Lemon [place] soda. Offered water, declines water. Care continues.
[2016-12-26] MEDS: cefTRIAXone Inj 2,000 MG in Dextrose 5% Minibag Plus 50 ML IV SCH (20:56)
[2016-12-27] VITALS (7 sets, daily range): BP systolic 123–170; BP diastolic 66–89; PULSE 71–111; RESP 16–26; O2SAT 96–99
[2016-12-27] MEDS: Heparin 5,000 Unit/mL Inj SUBQ SCH ×3 (00:30→17:15)
[2016-12-27 03:06] LABS: BASOPHILS % (AUTO) 0.9 % (0-3); EOSINOPHILS % (AUTO) 4.5 % (0-5); MONOCYTES % (AUTO) 10.2 % (4-12); Mean Corpuscular Hemoglobin 29.3 pg (27.0-35.0); Mean Corpuscular Volume 95.1 fL (81-100); NEUTROPHILS % (AUTO) 59.8 % (40-74); Platelet Count 329 bil/L (150-400)
[2016-12-27 03:45] LABS: Phosphorus 3.6 mg/dL (2.5-4.9)
--- NOTE | 2016-12-27 07:49 | NUR ---
Mentation/Call Light/Rest Pt is alert to self and place and unsure of what year it is. Pt began to speak to herself on and off. Pt continually pushed call light. Pt did not get much rest throughout the shift even though the pt c/o being "so tired" and "just wanting to go to sleep."
[2016-12-27] MEDS: 0.9% Sodium Chloride 1,000 ML IV SCH (10:25)
--- NOTE | 2016-12-27 10:54 | NUR ---
SW met with the Pt to discuss PT recommendations, PT recommending SNF at this time with the possibility of the Pt progressing. SNF discussed with Pt, Pt declining SNF services at this time but is agreeable for HH. HH list provided, no preference given. SW referred to rotating calendar, referral placed to [facility]. Access given. F2F in folder. Pt discussed in rounds, likely to discharge in a few days. SW will continue to follow. LIZY Anand Sales Project Administrator Addendum: 12/27/16 at 1353 by KEENAN LINDER SS SW has reviewed global marketing intern note. LIZY Martines
[2016-12-27] MEDS: HYDROmorphone 0.5 mg/0.5 mL iSecure Syringe IVPUSH PRN ×2 (12:41→17:15)
--- NOTE | 2016-12-27 14:20 | PCM.PNMED ---
Subjective Date of Service Dec 27, 2016 Subjective Patient is doing better today. She denies right hip pain. She is oriented to self and place. Barakat catheter in place, good urine output. Exam Vital Signs Vital Sign - Last Date Time Temp Pulse Resp B/P Pulse Ox O2 Delivery O2 Flow Rate FiO2 12/27/16 12:26 36.7 79 16 158/78 97 Room Air 12/25/16 15:00 6.00 Intake and Output 12/26/16 12/26/16 12/27/16 Cumulative From/Thru 15:00 23:00 07:00 12/23/16 14:11 - 12/27/16 06:35 Intake Total 1704 ml 900 ml 9916 ml Output Total 800 ml 800 ml 4375 ml Balance 904 ml 100 ml 5541 ml Intake Oral 660 ml 900 ml 2890 ml IV Total 1044 ml 7026 ml Output Urine Total 800 ml 800 ml 4375 ml # Bowel Movements 1 Exam General: Elderly female laying in bed in no acute distress, oriented to self and place Lungs: Clear to auscultation anteriorly, no accessory muscle use Heart: Regular rate and rhythm, no murmurs noted Abdomen: Soft, nontender, nondistended Extremities: No edema,cyanosis, ecchymosis Genitourinary: Barakat in place IVs and Medications Medications Reviewed: Medications were reviewed in detail Lab and Diagnostics Result Diagram: 12/27/16 0245 12/27/16 0245 X-Rays, CTs and MRIs X-RAY PELVIS W/LAT HIP IMPRESSION: Suspect a displaced fracture of the superior acetabulum. Dictated and approved by: Enrique Patel M.D. on 12/23/2016 at 15:26 CT PELVIS WITHOUT CONTRAST IMPRESSION: 1. No right hip fracture is evident. If there remains high clinical concern for a subtle right hip fracture, please consider obtaining an MRI of the hip for better evaluation. 2. Mild to moderate degenerative changes and osteopenia of the imaged bony structures of the pelvis. 3. Prominent thickening of the urinary bladder wall with surrounding edema and corresponding distal bilateral hydroureter and periureteral edema is suspicious for an ascending urinary tract infection. An infiltrative/neoplastic process is felt to be less likely, but cannot be completely excluded. Please correlate clinically. Dictated and approved by: Satya Mccarthy M.D. on 12/23/2016 at 15:17 Assessment & Plan 71-year-old female with history of chronic kidney disease and dementia presented to [facility] Emergency Department with right hip pain status post ground level fall one week earlier. Acute E. Coli urinary tract infection, present on admission. Ongoing -Barakat catheter inserted in ED -CT findings: prominent thickening of the urinary bladder wall with surrounding edema and corresponding distal bilateral hydroureter and periureteral edema -Ceftriaxone IV started in ED, continue current management (IV antibiotic day 4) Acute on chronic kidney injury, present on admission. Improving -Creatinine baseline 2.7-3.1 -Patient is not on any home meds but was taking Aleve for hip pain -Appreciate nephrology consult. Will followup with recommendations: - continue current IVF, normal saline @ 80mls/hr and IV antibiotics - continue Calcium Acetate - Aranesp 60 mcg subQ x 1 on 12/25 - d/c bicarb gtt Right hip pain secondary to ground level fall, present on admission. Active -No right hip fracture is evident on CT -Continue with supportive care including pain control with IV Dilaudid as needed -Per PT evaluation, patient is a candidate for SNF, however patient declined, but agreed to home health Normocytic anemia, present on admission. worsening -Most likely due to anemia of chronic disease and CKD and hemodilution -Check stool guaiac Disposition: Likely 1-2 days pending improve renal function, better pain control and mobility. VTE Prophylaxis: Sub-Q Heparin (Unfractionated) VTE Mechanical Devices: Intermittant Pneumatic CD Attending Statement The patient was seen and examined together with Dr. Nolasco on 12/27/16 and I have added additional information to the note above. Stefania Nolasco DO Dec 27, 2016 14:20 Tonya Ford DO Dec 28, 2016 14:26
[2016-12-27] MEDS ORDERED: Ergocalciferol (Vit D2) 50,000 Unit Capsule PO SCH (14:50)
--- NOTE | 2016-12-27 14:59 | PCM.PNNEPH ---
Subjective Date of Service Dec 27, 2016 Subjective The patient states that she feels better and that she feels like she is ready to go home. The patient denies any ongoing fever or chills. The patient denies any abdominal pain nausea or vomiting. Exam Vital Signs Vital Sign - Last Date Time Temp Pulse Resp B/P Pulse Ox O2 Delivery O2 Flow Rate FiO2 12/27/16 12:26 36.7 79 16 158/78 97 Room Air 12/25/16 15:00 6.00 Intake and Output 12/26/16 12/26/16 12/27/16 Cumulative From/Thru 15:00 23:00 07:00 12/23/16 14:11 - 12/27/16 06:35 Intake Total 1704 ml 900 ml 9916 ml Output Total 800 ml 800 ml 4375 ml Balance 904 ml 100 ml 5541 ml Intake Oral 660 ml 900 ml 2890 ml IV Total 1044 ml 7026 ml Output Urine Total 800 ml 800 ml 4375 ml # Bowel Movements 1 Exam Gen.: Patient is alert and oriented 3, in no acute distress Eyes: Pupils equal round reactive to light, moist mucous membranes with pale conjunctiva, anicteric sclera HENT: Normocephalic atraumatic, moist mucous membranes without central cyanosis or cobblestoning mucosal Neck: No JVD noted. Trachea midline without lymphadenopathy or thyromegaly Cardiovascular: Regular rate and rhythm with no murmurs rubs or gallops noted Lungs: Clear to auscultation bilaterally without wheezing rales or rhonchi Abdomen: Normoactive bowel sounds, nontender, nondistended Extremities: No cyanosis clubbing or edema noted, pulses intact bilaterally dorsalis pedis and radial arteries, right hand is contracted and closed and painful to attempt to open MSK: No swollen or erythematous joints, right hand remains contracted painful to use at baseline Skin: warm and dry, no erythema or rashes noted Neuro: No focal neurologic deficits noted, able to move all extremities except for chronic contracted right hand Psych: Normal mood and affect Lab and Diagnostics Result Diagram: 12/27/16 0245 12/27/16 024 X-Rays, CTs and MRIs X-RAY PELVIS W/LAT HIP IMPRESSION: Suspect a displaced fracture of the superior acetabulum. Dictated and approved by: Enrique Patel M.D. on 12/23/2016 at 15:26 CT PELVIS WITHOUT CONTRAST IMPRESSION: 1. No right hip fracture is evident. If there remains high clinical concern for a subtle right hip fracture, please consider obtaining an MRI of the hip for better evaluation. 2. Mild to moderate degenerative changes and osteopenia of the imaged bony structures of the pelvis. 3. Prominent thickening of the urinary bladder wall with surrounding edema and corresponding distal bilateral hydroureter and periureteral edema is suspicious for an ascending urinary tract infection. An infiltrative/neoplastic process is felt to be less likely, but cannot be completely excluded. Please correlate clinically. Dictated and approved by: Satya Mccarthy M.D. on 12/23/2016 at 15:17 Plan Impression The patient is a 71-year-old female with past medical history remarkable for gout and arthritis who presents with right hip pain secondary to a ground-level fall. 1. Acute urinary tract infection 2. acute kidney injury on chronic kidney disease 3. Anemia 4. hyperparathyroidism 5. Low vitamin D Plan: 1. Acute urinary tract infection - UA shows packed WBCs with bacteria - Cultures and sensitivity returned today with positive for Escherichia coli with good sensitivities - Avoid nephrotoxic antibiotics like Bactrim - Rocephin 2 g IV daily 2. Likely acute kidney injury on chronic kidney disease - Creatinine at admission was approximately 5.88 - Review of records indicate a baseline creatinine of 1.4-1.5 at approximately 5 years ago - The patient denies any history of chronic kidney disease - History reveals that the patient has been taking Aleve every 4 hours for possibly the last several years - Fractional excretion of sodium calculated at 3% consistent with intrinsic cause - Given poor improvement in creatinine with IV fluids, as well as low calcium high phosphorus and a high potassium, likely chronic condition secondary to chronic NSAID use - Uric acid increased to 7.9 consistent with possible reported gout - Calcium acetate 667 mg 3 times a day for phosphate binding - Urine eosinophils ordered and negative - MNS at 80 mL per hour - Patient will likely need to be evaluated as a dialysis candidate in the very near future - Order a protein creatinine ratio in the next few days once the patient's significant urinary tract infection with bacteria and packed WBCs begins to clear 3. Anemia - Likely secondary to chronic kidney disease with low TIBC and normal iron and ferritin - Patient given a one-time dose of darbepoetin 60 g - Patient to be given iron sucrose 200 mg IV 4. hyperparathyroidism - Secondary to chronic kidney disease - Low calcium and elevated phosphate - PhosLo 3 times a day - Encourage her vitamin D and calcium supplementation 5. Low vitamin D - likely secondary to chronic kidney disease and standard poor UV exposure - Encouraged vitamin D and calcium supplementation Berny Prater DO Dec 27, 2016 14:59
[2016-12-27] MEDS ORDERED: Iron Sucrose Inj 200 MG in 0.9% Sodium Chloride 100 ML IV ONE (15:00)
[2016-12-27] MEDS: Nystatin 100,000 Unit/Gm 15 Gm Powder TOPICAL SCH ×2 (17:15→20:10)
--- NOTE | 2016-12-27 18:03 | NUR ---
Skin/Harper Patient reports significant itching and pain in vulva, groin folds and buttock. Small open area distal to inguinal fold on R side. General vinay area red/macerated-- nystatin cream switched to powder form, PO Diflucan ordered. Patient forgetful needs frequent cueing to not itch area. No reports of n/v/d/c or abdominal pain. Small formed brown stool on 12/27 -- incontinent. Harper patent, draining yellow very cloudy urine with mucous threads/sediment to gravity. Per nephrology orders, bladder training with harper clamped approx 2-4 hours depending on patient's urge to void. No reports of chest pain/pressure/discomfort. Tele SR 70s-80s with 1st degree block.No reports of SOB at rest, patient states she got "a little" SOB when working with PT this AM. SPO2 on RA 98%. Encouraging movement and ambulation, patient refusing, stating "I'm too tired".
[2016-12-27] MEDS: cefTRIAXone Inj 2,000 MG in Dextrose 5% Minibag Plus 50 ML IV SCH (20:10)
[2016-12-28] VITALS (8 sets, daily range): BP systolic 119–154; BP diastolic 70–92; PULSE 65–85; RESP 20; O2SAT 96–98
[2016-12-28] MEDS: HYDROmorphone 0.5 mg/0.5 mL iSecure Syringe IVPUSH PRN ×2 (01:01→21:49)
[2016-12-28] MEDS: Heparin 5,000 Unit/mL Inj SUBQ SCH ×3 (01:02→17:02)
[2016-12-28] MEDS: 0.9% Sodium Chloride 1,000 ML IV SCH (02:08)
[2016-12-28 02:56] LABS: Mean Corpuscular Hemoglobin 28.6 pg (27.0-35.0); Mean Corpuscular Volume 96.4 fL (81-100)
--- NOTE | 2016-12-28 05:26 | NUR ---
NOC activity a/o x 3, very forgetful. harper clamped at 1999. patient voiced need to urinate after 2.5 hours. patient noted to leak urine into attends while clamped, rest of NOC was unclamped w/ no further leakage. 800cc collected at end of shift. urine clear, light green in color. nystatin powder to yeasty groin, abd fold, vinay-area.
[2016-12-28] MEDS: Nystatin 100,000 Unit/Gm 15 Gm Powder TOPICAL SCH ×2 (08:57→20:46)
--- NOTE | 2016-12-28 12:18 | NUR ---
Gave access to [facility] per INDEPENDENT VIDEO PRODUCER Addendum: 12/28/16 at 1510 by TAMAR MARIN CM [facility] accepted patient with to follow and they are starting authorization today in anticipation for discharge tomorrow. Updated [employer]
--- NOTE | 2016-12-28 13:38 | PCM.PNNEPH ---
Berny Prater DO 12/28/16 1338: Subjective Date of Service Dec 28, 2016 Subjective The patient states that she feels like she is going to need to stay in the hospital until Tuesday because her will not be able to take any time off from work. The patient states that she is tired because she has not slept and would like a sleeping pill. She denies any ongoing fever or chills. She is unaware of they have been attempting to bladder train her today or yesterday. Exam Vital Signs Vital Sign - Last Date Time Temp Pulse Resp B/P Pulse Ox O2 Delivery O2 Flow Rate FiO2 12/28/16 12:49 Room Air 12/28/16 10:53 36.6 85 20 119/77 96 12/25/16 15:00 6.00 Intake and Output 12/27/16 12/27/16 12/28/16 Cumulative From/Thru 15:00 23:00 07:00 12/23/16 14:11 - 12/28/16 06:14 Intake Total 1435 ml 1582 ml 81375 ml Output Total 750 ml 800 ml 5925 ml Balance 685 ml 782 ml 8008 ml Intake Oral 660 ml 560 ml 4110 ml IV Total 775 ml 1022 ml 9823 ml Output Urine Total 750 ml 800 ml 5925 ml # Bowel Movements 1 2 Exam Gen.: Elderly female patient lying in a hospital bed alert and cooperative, in no acute distress Eyes: Pupils equal round reactive to light, moist mucous membranes with pale conjunctiva, anicteric sclera HENT: Normocephalic atraumatic, moist mucous membranes without central cyanosis or cobblestoning mucosal Neck: No JVD noted. Trachea midline without lymphadenopathy or thyromegaly Cardiovascular: Regular rate and rhythm with no murmurs rubs or gallops noted Lungs: Clear to auscultation bilaterally without wheezing rales or rhonchi Abdomen: Normoactive bowel sounds, nontender, nondistended Extremities: No cyanosis clubbing or edema noted, pulses intact bilaterally dorsalis pedis and radial arteries, right hand is contracted and closed and painful to attempt to open MSK: No swollen or erythematous joints, right hand remains contracted painful to use at baseline Skin: warm and dry, no erythema or rashes noted Neuro: No focal neurologic deficits noted, able to move all extremities except for chronic contracted right hand Psych: Normal mood and affect Lab and Diagnostics Result Diagram: 12/28/16 0247 12/28/16 0247 X-Rays, CTs and MRIs X-RAY PELVIS W/LAT HIP IMPRESSION: Suspect a displaced fracture of the superior acetabulum. Dictated and approved by: Enrique Patel M.D. on 12/23/2016 at 15:26 CT PELVIS WITHOUT CONTRAST IMPRESSION: 1. No right hip fracture is evident. If there remains high clinical concern for a subtle right hip fracture, please consider obtaining an MRI of the hip for better evaluation. 2. Mild to moderate degenerative changes and osteopenia of the imaged bony structures of the pelvis. 3. Prominent thickening of the urinary bladder wall with surrounding edema and corresponding distal bilateral hydroureter and periureteral edema is suspicious for an ascending urinary tract infection. An infiltrative/neoplastic process is felt to be less likely, but cannot be completely excluded. Please correlate clinically. Dictated and approved by: Satya Mccarthy M.D. on 12/23/2016 at 15:17 Plan Impression The patient is a 71-year-old female with past medical history remarkable for gout and arthritis who presents with right hip pain secondary to a ground-level fall. 1. Acute urinary tract infection 2. acute kidney injury on chronic kidney disease 3. Anemia 4. hyperparathyroidism 5. Low vitamin D Plan: 1. Acute urinary tract infection - UA shows packed WBCs with bacteria - Cultures and sensitivity returned today with positive for Escherichia coli with good sensitivities - Avoid nephrotoxic antibiotics like Bactrim - Rocephin 2 g IV daily, could be switched to an oral agent like Keflex as this appears to be a campuzano sensitive E. Coli, likely treat for 1 week 2. Likely acute kidney injury on chronic kidney disease - Creatinine at admission was approximately 5.88 - Review of records indicate a baseline creatinine of 1.4-1.5 at approximately 5 years ago - The patient denies any history of chronic kidney disease but history reveals that the patient has been taking Aleve every 4 hours for possibly the last several years - Fractional excretion of sodium calculated at 3% consistent with intrinsic cause - Given low calcium high phosphorus and a high potassium, likely chronic kidney disease condition secondary to chronic NSAID use - Uric acid increased to 7.9 consistent with possible reported gout - Calcium acetate 667 mg 3 times a day for phosphate binding - Urine eosinophils ordered and negative - NS at 80 mL per hour - Patient will likely need to be evaluated as a dialysis candidate in the very near future - Order a protein creatinine ratio in the next few days once the patient's significant urinary tract infection with bacteria and packed WBCs begins to clear 3. Anemia - Likely secondary to chronic kidney disease with low TIBC and normal iron and ferritin - Patient given a one-time dose of darbepoetin 60 g and iron sucrose 200 mg IV 4. hyperparathyroidism - Secondary to chronic kidney disease - Low calcium and elevated phosphate - PhosLo 3 times a day - Encourage her vitamin D and calcium supplementation 5. Low vitamin D - likely secondary to chronic kidney disease and standard poor UV exposure - Encouraged vitamin D and calcium supplementation Mele Marin DO 12/28/16 1426: Subjective Subjective Pt. seen with ashley Simpson reviewed and cases discussed as detailed above. 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 Exam Lab and Diagnostics Result Diagram: 12/28/16 0247 12/28/16 0247 Berny Prater DO Dec 28, 2016 13:38 Mele Marin DO Dec 28, 2016 14:26
--- NOTE | 2016-12-28 15:00 | NUR ---
Social Work: Readiness for Discharge Data: EMR reviewed. Pt is on day 5 of hospitalization for acute renal failure, UTI per H&P. notified SW that pt is agreeable to SNF at discharge. SW followed up with pt at bedside regarding this. PT continues to recommend SNF for pt's continued strengthening and mobility. SNF CHOICE LIST PROVIDED. Pt chose [facility]. UR Specialist made referral. Pt accepted at [facility] with MD Byrnes to follow pending insurance authorization. Paperwork in chart. PASRR in folder. SW will continue to follow. A: Pt who is I at baseline and would benefit from SNF. P: PT continues to recommend SNF. Pt is agreeable to this at this time, has been accepted at [facility] with MD Byrnes to follow. Insurance authorization pending. Paperwork in chart. PASRR in folder. SW will continue to follow LIZY Rincon
--- NOTE | 2016-12-28 15:19 | PCM.PNMED ---
Subjective Date of Service Dec 28, 2016 Subjective Patient states she is doing okay today. She is a tired as she did not sleep much last night. She continues to deny right hip pain, chills, chest pain, shortness of breath. She agreed to be discharged to SNF. Exam Vital Signs Vital Sign - Last Date Time Temp Pulse Resp B/P Pulse Ox O2 Delivery O2 Flow Rate FiO2 12/28/16 12:49 Room Air 12/28/16 10:53 36.6 85 20 119/77 96 12/25/16 15:00 6.00 Intake and Output 12/27/16 12/27/16 12/28/16 Cumulative From/Thru 15:00 23:00 07:00 12/23/16 14:11 - 12/28/16 06:14 Intake Total 1435 ml 1582 ml 06379 ml Output Total 750 ml 800 ml 5925 ml Balance 685 ml 782 ml 8008 ml Intake Oral 660 ml 560 ml 4110 ml IV Total 775 ml 1022 ml 9823 ml Output Urine Total 750 ml 800 ml 5925 ml # Bowel Movements 1 2 Exam General: Elderly female laying in bed in no acute distress, oriented to self and place Lungs: Clear to auscultation anteriorly, no accessory muscle use Heart: Regular rate and rhythm, no murmurs noted Abdomen: Soft, nontender, nondistended Extremities: No edema,cyanosis, ecchymosis Genitourinary: Barakat in place, will be removed later today IVs and Medications Medications Reviewed: Medications were reviewed in detail Lab and Diagnostics Result Diagram: 12/28/16 0247 12/28/16 0247 X-Rays, CTs and MRIs X-RAY PELVIS W/LAT HIP IMPRESSION: Suspect a displaced fracture of the superior acetabulum. Dictated and approved by: Enrique Patel M.D. on 12/23/2016 at 15:26 CT PELVIS WITHOUT CONTRAST IMPRESSION: 1. No right hip fracture is evident. If there remains high clinical concern for a subtle right hip fracture, please consider obtaining an MRI of the hip for better evaluation. 2. Mild to moderate degenerative changes and osteopenia of the imaged bony structures of the pelvis. 3. Prominent thickening of the urinary bladder wall with surrounding edema and corresponding distal bilateral hydroureter and periureteral edema is suspicious for an ascending urinary tract infection. An infiltrative/neoplastic process is felt to be less likely, but cannot be completely excluded. Please correlate clinically. Dictated and approved by: Satya Mccarthy M.D. on 12/23/2016 at 15:17 Assessment & Plan 71-year-old female with history of chronic kidney disease and dementia presented to [facility] Emergency Department with right hip pain status post ground level fall one week earlier. Acute E. Coli urinary tract infection, present on admission. Ongoing -Barakat catheter inserted in ED, plan to remove today in preparation for discharge to SNF tomorrow -CT findings: prominent thickening of the urinary bladder wall with surrounding edema and corresponding distal bilateral hydroureter and periureteral edema -Ceftriaxone IV started in ED, continue current management (IV antibiotic day 5) Acute on chronic kidney injury, present on admission. Improving -Creatinine baseline 2.7-3.1 -Patient is not on any home meds but was taking Aleve for hip pain -Appreciate nephrology consult. Will followup with recommendations: - continue current IVF, normal saline @ 80mls/hr and IV antibiotics - continue Calcium Acetate - Aranesp 60 mcg subQ x 1 on 12/25 - d/c bicarb gtt - patient will need dialysis evaluation in the near future Right hip pain secondary to ground level fall, present on admission. Improved -No right hip fracture is evident on CT -Continue with supportive care including pain control with IV Dilaudid as needed -Per PT evaluation, patient is a candidate for SNF Normocytic anemia, present on admission. worsening -Most likely due to anemia of chronic disease and CKD and hemodilution -Check stool guaiac -Start iron sucrose 200 mg IV per nephrology Disposition: Likely tomorrow to [facility] pending insurance authorization. VTE Prophylaxis: Sub-Q Heparin (Unfractionated) VTE Mechanical Devices: Intermittant Pneumatic CD Attending Statement The patient was seen and examined together with Dr. Nolasco on 12/29/16 and I agree with the history, exam and plan as outlined in the note above. Stefania Nolasco DO Dec 28, 2016 15:19 Tonya Ford DO January 03, 2017 17:22
[2016-12-28] MEDS: cefTRIAXone Inj 2,000 MG in Dextrose 5% Minibag Plus 50 ML IV SCH (20:47)
[2016-12-29] MEDS: Heparin 5,000 Unit/mL Inj SUBQ SCH ×4 (00:26→22:54)
[2016-12-29 03:00] VITALS: PULSE 70
[2016-12-29 03:24] VITALS: BP 123/68; PULSE 69; RESP 20; O2SAT 97
[2016-12-29 03:31] LABS: Mean Corpuscular Hemoglobin 28.9 pg (27.0-35.0); Mean Corpuscular Volume 97.6 fL (81-100)
--- NOTE | 2016-12-29 05:47 | NUR ---
Anxiety Received pt care at 0100. Pt sleeping at this time. Pt oriented but forgetful at times. She uses call light frequently and can be demanding with care at times. Encouraged pt to coordinate needs and wants at same time if possible. No complaints of pain at this time. She is anxious and reports not being able to sleep. Staff coordinate care and try to minimize distractions. Patient noted to be incontinent of urine at times. She calls staff and request to change her brief because she has voided. Enc patient to get up and increase activity.
[2016-12-29 08:05] VITALS: BP 128/60; PULSE 71; RESP 22; O2SAT 98
[2016-12-29] MEDS: Nystatin 100,000 Unit/Gm 15 Gm Powder TOPICAL SCH ×2 (08:18→21:02)
[2016-12-29 12:52] VITALS: BP 124/65; PULSE 72; RESP 18; O2SAT 100
--- NOTE | 2016-12-29 13:56 | PCM.PNNEPH ---
Subjective Date of Service Dec 29, 2016 Subjective Overall the patient's condition is about the same. She has had some slight improvement in her renal function and has had about 1300 mL of urine out in the last 24 hours. Blood pressures have been averaging between 110 and 130. Intake and output for the last 24 hours shows 1912 in and 1300 out. This morning her and her hemoglobin is 8.3, sodium 142, potassium 4.2, 106, bicarbonate 23, BUN and creatinine were 25 and 4.08. Exam Vital Signs Vital Sign - Last Date Time Temp Pulse Resp B/P Pulse Ox O2 Delivery O2 Flow Rate FiO2 12/29/16 12:52 36.6 72 18 124/65 100 Room Air 12/25/16 15:00 6.00 Intake and Output 12/28/16 12/28/16 12/29/16 Cumulative From/Thru 15:00 23:00 07:00 12/23/16 14:11 - 12/29/16 06:17 Intake Total 330 ml 300 ml 77427 ml Output Total 500 ml 50 ml 6475 ml Balance -170 ml 250 ml 8088 ml Intake Oral 330 ml 300 ml 4740 ml IV Total 9823 ml Output Urine Total 500 ml 50 ml 6475 ml # Voids 2 2 # Bowel Movements 1 3 Exam HEENT examination is remarkable for pale sclera. Neck is supple without adenopathy, thyromegaly, or jugular venous distention. Lungs are clear to auscultation. Heart is regular and equal. Abdomen is soft without any tenderness rebound guarding masses or hepatosplenomegaly. Extremities did not show any evidence of any clubbing, cyanosis, or edema. Skin turgor is good. Lab and Diagnostics Result Diagram: 12/29/1631812/29/16318 X-Rays, CTs and MRIs X-RAY PELVIS W/LAT HIP IMPRESSION: Suspect a displaced fracture of the superior acetabulum. Dictated and approved by: Enrique Patel M.D. on 12/23/2016 at 15:26 CT PELVIS WITHOUT CONTRAST IMPRESSION: 1. No right hip fracture is evident. If there remains high clinical concern for a subtle right hip fracture, please consider obtaining an MRI of the hip for better evaluation. 2. Mild to moderate degenerative changes and osteopenia of the imaged bony structures of the pelvis. 3. Prominent thickening of the urinary bladder wall with surrounding edema and corresponding distal bilateral hydroureter and periureteral edema is suspicious for an ascending urinary tract infection. An infiltrative/neoplastic process is felt to be less likely, but cannot be completely excluded. Please correlate clinically. Dictated and approved by: Satya Mccarthy M.D. on 12/23/2016 at 15:17 Plan Impression Impression #1 acute kidney injury secondary to ibuprofen/drug induced acute kidney injury number to baseline chronic kidney disease stage IV #3 chronic interstitial nephritis #4 anemia secondary to chronic kidney disease Recommendations #1 in light of the patient's multiple comorbidities and limited ambulation I do question whether dialysis on a long-term basis would be of much benefit versus comfort measures. I would like to continue her on erythropoietin to have her blood count up and tried other conservative measures C Markell treviño. Mele Marin DO Dec 29, 2016 13:56
--- NOTE | 2016-12-29 15:06 | PCM.DIMED ---
Stefania Nolasco DO 12/29/16 1506: Discharge Instructions Date of Service Dec 30, 2016 Dates of Hospitalization Dec 23, 2016 at 19:37 Discharge Diagnosis Discharge Diagnosis 1. Acute E. Coli urinary tract infection, present on admission. Improved 2. Acute on chronic kidney injury, present on admission. Improving 3. Right hip pain secondary to ground level fall, present on admission. Improved 4. Normocytic anemia, present on admission. Ongoing 5. Low vitamin D, present on admission. Active Medication Instructions 1. Start taking iron supplement, ferrous sulfate, 325 mg twice a day orally. 2. Start taking vitamin C 500 mg daily. 3. Start taking vitamin D3 supplement, cholecalciferol, 5000 units daily for at least 8 weeks. 4. Please apply Nystatin to inflamed perineal area as needed. 5. Please discontinue ibuprofen and naproxen as these medications will continue damaging your kidneys. Diet Renal Diet Activity Limited until seen by PCP Call your provider Fever or Chills, Shortness of breath, Bleeding, Chest pain, Vomitting, Excessive diarrhea, Weakness (unilateral) Patient Instructions Follow-up Provider: Maximiliano Nagel MD Follow-up with PCP in: 1 week Maximiliano Robles MD 12/30/16 1742: Discharge Instructions Attending's Statement The patient was seen and examined together with Dr. Nolasco on 12/29/2016 and I agree with the history, exam and plan as outlined in the note above. . Stefania Nolasco DO Dec 29, 2016 15:06 Maximiliano Robles MD Dec 30, 2016 17:42
[2016-12-29] MEDS ORDERED: FERR-83 PO (15:09)
[2016-12-29] MEDS ORDERED: CHOL5000 PO (15:11)
[2016-12-29] MEDS ORDERED: NYST15CR TP (15:14)
--- NOTE | 2016-12-29 15:21 | PCM.DC.MED ---
Discharge Summary Date of Service Dec 30, 2016 Dates of Hospitalization Date of Hospital Admission Dec 23, 2016 at 19:37 Date of Discharge: Dec 30, 2016 Providers: Admitting Physician: Giovanna Mackey MD Primary Care Physician: Maximiliano Nagel MD Attending Physician: Giovanna Mackey MD Diagnosis at Time of Discharge Diagnosis at Time of Discharge 1. Acute E. Coli urinary tract infection, present on admission. Improved 2. Acute on chronic kidney injury, present on admission. Improving 3. Right hip pain secondary to ground level fall, present on admission. Improved 4. Normocytic anemia, present on admission. Ongoing 5. Low vitamin D, present on admission. Active Consultations Nephrology, Dr. Marin Procedures XRay, CTs & MRIs X-RAY PELVIS W/LAT HIP IMPRESSION: Suspect a displaced fracture of the superior acetabulum. Dictated and approved by: Enrique Patel M.D. on 12/23/2016 at 15:26 CT PELVIS WITHOUT CONTRAST IMPRESSION: 1. No right hip fracture is evident. If there remains high clinical concern for a subtle right hip fracture, please consider obtaining an MRI of the hip for better evaluation. 2. Mild to moderate degenerative changes and osteopenia of the imaged bony structures of the pelvis. 3. Prominent thickening of the urinary bladder wall with surrounding edema and corresponding distal bilateral hydroureter and periureteral edema is suspicious for an ascending urinary tract infection. An infiltrative/neoplastic process is felt to be less likely, but cannot be completely excluded. Please correlate clinically. Dictated and approved by: Satya Mccarthy M.D. on 12/23/2016 at 15:17 Brief History Per admitting physician, Giovanna Mackey MD: Chief Complaint: RIght Hip hurts HISTORY was OBTAINED FROM PATIENT-poor historian / [employer] NOTES History of present illness: 71-year-old female complained of falling a week ago and complaining that her right hip hurt. In the ER, hip xray was indeterminant , w/ subsequent CT negative for hip fracture but demonstrated thickening bladder wall, and with insertion of Barakat, purulent fluid was noted with a macerated genital area. 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 prior UTIs, prior yeast infections. no prior boils. no bedbugs. Pt seems to have itch/superficial hip area pain, not tender to palpation In the ER vital signs stable, tolerated use, Dilaudid, Rocephin 2 g, saline, Percocet. Hospital Course The patient is a 71-year-old female with past medical history remarkable for gout and arthritis who presents with right hip pain secondary to a ground-level fall 1 week ago. Pain is rated 8/10 and has prevented the patient from being able to walk or sleep. The patient states that she is normally not on ambulatory and her must care for her however the patient reports that several days ago she was ambulating from her bed to the kitchen and fell on ceramic tile injuring her right hip. The patient states that she has never had any pain in her right leg like this before. The patient typically suffers from urinary incontinence for which she wears adult disposable diapers. The patient states that she does have a history of gout and osteoarthritis for which she takes Aleve 2 tabs every 4 hours for the last 5 years. The patient denies any history of chronic kidney disease and does not believe she is ever been told that she has protein or blood in her urine. The patient denies any history of kidney stones, yellow jaundice or hepatitis, HIV, IV drug use, diabetes or chronic urinary tract infections. She believes last time she had a urinary tract infection was perhaps one year ago when she was placed on antibiotics however she cannot remember the specifics. She was previously seen by a doctor in [place] and however that her doctor has since retired and now lives in [place]. The patient appears to be a mildly poor historian. Acute E. Coli urinary tract infection, present on admission. Improved -Treated with ceftriaxone intravenously x 5 days Acute on chronic kidney injury, present on admission. Improving -Creatinine baseline 2.7-3.1; believed to be secondary to ibuprofen/drug induced acute kidney injury -Appreciate nephrology consult - continued intravenous fluids, normal saline @ 80mls/hr - continued Calcium Acetate - aranesp 60 mcg subQ x 1 on 12/25 - patient might need dialysis evaluation in the near future - CT findings revealed prominent thickening of the urinary bladder wall with surrounding edema and corresponding distal bilateral hydroureter and periureteral edema Right hip pain secondary to ground level fall, present on admission. Improved -No right hip fracture is evident on CT -Continued with supportive care including pain control with intravenous dilaudid as needed -Per physical therapy evaluation, patient is discharged in a stable condition to [facility]-Term facility Normocytic anemia, present on admission. Ongoing -Most likely due to anemia of chronic disease and and hemodilution -Continue iron sucrose 200 mg intravenously per nephrology -Discharged with ferrous sulfate, 325 mg twice a day by mouth and Vitamin C 500 mg daily -Recommended high fiber diet to prevent constipation Low vitamin D - Likely secondary to chronic kidney disease and standard poor UV exposure - Discharged with vitamin D3 supplementation, cholecalciferol, 5000 units daily by mouth for at least 8 weeks Disposition: Patient has been discharged to [facility] in a stable condition. Exam Vital Signs (Last) Date Time Temp Pulse Resp B/P Pulse Ox O2 Delivery O2 Flow Rate FiO2 12/29/16 12:52 36.6 72 18 124/65 100 Room Air 12/25/16 15:00 6.00 Exam General: No acute distress, alert and oriented Lungs: Clear to auscultation anteriorly, no accessory muscle use Heart: Regular rate and rhythm, no murmurs noted Abdomen: Soft, nontender, nondistended Extremities: No edema,cyanosis, ecchymosis Neuro: Grossly neurologically intact Test 12/23/16 17:00 12/23/16 17:10 12/24/16 02:19 12/24/16 10:24 Reticulocyte Count,Calculated 1.6% (0.6-2.6) Hold Purple Top Tube Received (Received) Hold Blue Top Tube Received (Received) Lactic Acid Level 0.6mmol/L (0.4-2.0) Lipase 81U/L (13-60) Hold [place] Top Tube Received (Received) Hold Razo Top Tube Received (Received) Urine Color Yellow (YELLOW) Urine Appearance Turbid (CLEAR,HAZY) Urine pH 7.5 (5.0-8.0) Urine Specific [place] 1.020 (1.003-1.035) Urine Protein >300mg/dL (NEG,TRACE) Urine Glucose (UA) Negativemg/dL (NEGATIVE) Urine Ketones Negativemg/dL (NEGATIVE) Urine Occult Blood Moderate (NEGATIVE) Urine Nitrite Negative (NEGATIVE) Urine Bilirubin Negative (NEGATIVE) Urine Urobilinogen Normalmg/dL (NORMAL) Urine Leukocyte Esterase Moderate (NEGATIVE) Urine RBC 3-10/hpf (0-2) Urine WBC Packed/hpf (0-5) Urine Epithelial Cells Many/hpf (NONE-MOD) Urine Crystals None seen (NONE SEEN) Urine Bacteria Many/hpf (NONE-FEW) Urine Hyaline Casts None/lpf (NONE) Urine Granular Casts None seen (NONE SEEN) Urine Waxy Casts None seen (NONE SEEN) Urine Red Blood Cell Casts None seen (NONE SEEN) Urine White Blood Cell Casts None seen (NONE SEEN) Urine Mucus None seen (None Seen) Urine Trichomonas None seen (NONE SEEN) Urine Yeast None (NONE SEEN) Urinalysis Comment Amorphous sediment Urine Culture Reflexed Indicated Band Neutrophils % 3% (1-5) Urine Osmolality 413mOs/kH2O (250-1200) Urine Random Creatinine 92mg/dL (15-278) Urine Random Sodium 64mEq/L Osmolality 305 (275-300) Uric Acid 7.9mg/dL (2.6-7.2) Iron Level 37ug/dL (35-150) Total Iron Binding Capacity 175ug/dL (250-450) Percent Iron Saturation 21%sat (15-50) Unsaturated Iron Binding 138ug/dL Vitamin B12 Level 587pg/mL (211-946) Thyroid Stimulating Hormone (TSH) 3.380uIU/mL (0.450-4.500) Free Thyroxine Index 1.8 (1.2-4.9) Thyroxine (T4) 6.1ug/dL (4.5-12.0) Triiodothyronine (T3) Uptake 29% (24-39) Calcium (Send out) 7.9mg/dL (8.7-10.3) Parathyroid Hormone Interpretation Comment (.) Total Intact Parathyroid Hormone 102pg/mL (15-65) Test 12/25/16 02:35 12/26/16 02:19 12/27/16 02:45 12/29/16 03:19 Total Bilirubin 0.4mg/dL (0.0-1.2) Aspartate Amino Transf (AST/SGOT) 17U/L (0-50) Alanine Aminotransferase (ALT/SGPT) 9U/L (0-32) Alkaline Phosphatase 134U/L (25-165) Total Protein 6.4g/dL (6.4-8.4) Vitamin D 25-Hydroxy 7.2ng/mL (30.0-100.0) Prothrombin Time 11.0sec (8.1-12.5) Prothromb Time International Ratio 1.03ratio Activated Partial Thromboplast Time 36.9sec (22.8-33.0) Magnesium Level 1.8mg/dL (1.6-2.6) Neutrophils (%) (Auto) 59.8% (40-74) Lymphocytes (%) (Auto) 23.5% (14-46) Monocytes (%) (Auto) 10.2% (4-12) Eosinophils (%) (Auto) 4.5% (0-5) Basophils (%) (Auto) 0.9% (0-3) Phosphorus Level 3.6mg/dL (2.5-4.9) Albumin 2.0g/dL (3.4-5.0) White Blood Count 5.5th/mm3 (3.8-10.1) Red Blood Count 2.87mil/mm3 (3.90-5.20) Hemoglobin 8.3g/dL (12.0-15.6) Hematocrit 28.0% (35.0-46.0) Mean Corpuscular Volume 97.6fL (81-100) Mean Corpuscular Hemoglobin 28.9pg (27.0-35.0) Mean Corpuscular Hemoglobin Concent 29.6% (32.0-37.0) Red Cell Distribution Width 12.5% (12.3-15.4) Platelet Count 365bil/L (150-400) Sodium Level 142mEq/L (134-144) Potassium Level 4.2mEq/L (3.5-5.2) Chloride Level 106mEq/L (97-108) Carbon Dioxide Level 23mmol/L (18-29) Blood Urea Nitrogen 25mg/dL (8-27) Creatinine 4.08mg/dL (0.57-1.00) Estimat Glomerular Filtration Rate 15mL/min (>59) Glucose Level 91mg/dL (60-99) Calcium Level 8.6mg/dL (8.5-10.1) Discharge Medications Discharge Medications Ascorbic Acid (Vitamin C) 500 Mg Capsule.er 500 MG PO DAILY Prescribed by: ALISON ODOM DO Cholecalciferol (Vitamin D3) (Vitamin D3) 5,000 Unit Capsule 5,000 UNIT PO DAILY Prescribed by: ALISON ODOM DO Ferrous Sulfate (Ferrous Sulfate) 325 Mg Tablet 325 MG PO BID Prescribed by: ALISON ODOM DO Nystatin/Triamcin (Nystatin-Triamcinolone Cream) 15 Gm Cream..g. 15 GM TP DAILY Prescribed by: ALISON ODOM DO Additional med instructions 1. Start taking iron supplement, ferrous sulfate, 325 mg twice a day orally. 2. Start taking vitamin D3 supplement, cholecalciferol, 5000 units daily for at least 8 weeks. 3. Please apply Nystatin to inflamed perineal area as needed. 4. Please discontinue ibuprofen and naproxen as these medications will continue damaging your kidneys. Followup Plan Discharge Diet: Renal Diet Discharge Activity: Limited until seen by PCP Follow-up Provider: Maximiliano Nagel MD Follow-up with PCP in: 2 weeks Time spent Greater than 30 minutes was spent in preparation of discharge with greater than 50% of that time dedicated to patient counseling and coordination of care. . Attending Statement The patient was seen and examined together with Dr. Odom on 12/30/2016 and I agree with the history, exam and plan as outlined in the note above. . copies to: Maximiliano Nagel MD, Oksana S DO Dec 29, 2016 15:21 Maximiliano Robles MD Dec 30, 2016 17:44
--- NOTE | 2016-12-29 16:25 | NUR ---
received call from pt's nurse, transport is here to [place], she is now refusing to dc to [facility] because her son told her she does not want to go there. Per pt she will only go to [facility]. Advised UR RN who will issue HINN. Called Darcie at [facility]. They will review clinicals and attempt auth with [facility] if accepted tomorrow.
[2016-12-29 16:28] VITALS: BP 166/93; PULSE 75; RESP 22; O2SAT 98
--- NOTE | 2016-12-29 16:53 | NUR ---
Social Work Note: Discharge Data& Assessment: EMR reviewed. Per MD pt is medically stable for discharge to SNF for rehab. [facility] obtained insurance authorization that was started yesterday 12/28/2016. SW and UR RN met with pt at bedside to confirm discharge planning and assess for any unmet needs. Pt confirmed plan to discharge to [facility] and was anxious to find out what time a wheelchair van arranged by the facility would come and pick her up. Per RN, when wheelchair van arrived to pick pt up at 4:00p.m., pt refused to get into the wheelchair and insisted on being discharged to [facility]. UR RN meeting with pt at bedside. SW to continue to follow. Plan: Anticipated discharge to [facility] vs. [facility] if authorization is re-obtained. SW to follow up with pt regarding discharge planning tomorrow 12/30/2016. REY to continue to follow. LIZY Sloan
--- NOTE | 2016-12-29 18:22 | NUR ---
Refused Discharge To [facility] Pt. was supposed to get discharged this afternoon but decided she did not want to go to [facility]. Pt. is in room 2009 constantly using her call light because she feels "uncomfortable". Pt. able to turn in bed independently and encouraged to do so.
[2016-12-29] MEDS: cefTRIAXone Inj 2,000 MG in Dextrose 5% Minibag Plus 50 ML IV SCH (21:02)
[2016-12-29 21:08] VITALS: BP 139/89; PULSE 79; RESP 21; O2SAT 96
[2016-12-30 03:53] VITALS: BP 158/79; PULSE 82; RESP 22; O2SAT 96
--- NOTE | 2016-12-30 04:43 | NUR ---
Hourly Rounding/IV Pt using call light constantly through beginning of shift, for minimal constant needs, such as getting chapstick that is within reach on bedside table or adjusting blankets in bed. Pt educated on hourly rounding and clustering needs. Despite education, pt continues to constantly use call light, noting 11 different calls within 20 minute period, pt states "I am uncomfortable" when call light answered. Pt has independent bed mobility ability. Hourly rounding enforced and performed throughout remaining shift. 0430 pt pulled out IV, catheter observed intact. small skin tear noted where tape was pulled off, bandaid dressing placed.
[2016-12-30 07:49] VITALS: BP 135/69; PULSE 74; RESP 18; O2SAT 96
[2016-12-30] MEDS: Heparin 5,000 Unit/mL Inj SUBQ SCH (07:55)
[2016-12-30] MEDS: Nystatin 100,000 Unit/Gm 15 Gm Powder TOPICAL SCH (07:56)
[2016-12-30] MEDS ORDERED: Ipratropium 0.03% 30 mL Nasal Spray Bottle NASAL PRN (10:40)
--- NOTE | 2016-12-30 11:33 | PCM.DIMED ---
Stefania Nolasco DO 12/30/16 1133: Discharge Instructions Date of Service Dec 30, 2016 Dates of Hospitalization Dec 23, 2016 at 19:37 Discharge Diagnosis Discharge Diagnosis 1. Acute E. Coli urinary tract infection, present on admission. Improved 2. Acute on chronic kidney injury, present on admission. Improving 3. Right hip pain secondary to ground level fall, present on admission. Improved 4. Normocytic anemia, present on admission. Ongoing 5. Low vitamin D, present on admission. Active Medication Instructions 1. Start taking iron supplement, ferrous sulfate, 325 mg twice a day orally. 2. Start taking vitamin C 500 mg daily. 3. Start taking vitamin D3 supplement, cholecalciferol, 5000 units daily for at least 8 weeks. 4. Please apply Nystatin to inflamed perineal area as needed. 5. Please discontinue ibuprofen and naproxen as these medications will continue damaging your kidneys. Diet Renal Diet Activity Limited until seen by PCP Call your provider Fever or Chills, Shortness of breath, Bleeding, Chest pain, Vomitting, Excessive diarrhea, Weakness (unilateral) Patient Instructions Follow-up Provider: Maximiliano Nagel MD Follow-up with PCP in: 1 week Maximiliano Robles MD 12/30/16 1742: Discharge Instructions Attending's Statement The patient was seen and examined together with Dr. Nolasco on 12/30/2016 and I agree with the history, exam and plan as outlined in the note above. . Stefania Nolasco DO Dec 30, 2016 11:33 Maximiliano Robles MD Dec 30, 2016 17:42
[2016-12-30] MEDS ORDERED: ASCO500C6 PO (11:34)
[2016-12-30 12:10] VITALS: BP 134/70; PULSE 69; RESP 18; O2SAT 100
--- NOTE | 2016-12-30 14:24 | NUR ---
Social Work: Discharge D: Pt refused discharge to [facility] on 12/29 and stayed overnight. UNIVERSITY TUTOR met with pt at bedside to discuss pt's concerns with discharge to [facility]. Pt states that she does not want to go to [facility] and wants to go to [facility]. Referral made to [facility]. [facility] has canceled their authorization and [facility] was able to obtain auth for their facility. Transportation has been arranged for 3:30pm. UNIVERSITY TUTOR updated the pt who is agreeable to discharge. UNIVERSITY TUTOR also updated the pts son, Maxx. PPW, Orders and PASSR Faxed to [facility]. Copies on chart. Bedside RN and machine operators aware of pickup time and dispo. A: Pt who requires skilled rehab for continued strengthening and gait stability. P: Pt to discharge to [facility] today with Dr. Zamora to follow; Transport arranged for 3:30pm. LIZY Rodríguez
--- NOTE | 2016-12-30 15:38 | NUR ---
Discharge To [facility] Pt. has been discharged to [facility] [place] at ~ 1530. Pt. took all her belongings with her from room [address] [facility], and transport came and picked her up in a wheel chair. Pts. information packet was given to transporter and Pt. left in no apparent distress. Family was notified per LOUVER MORTISER OPERATOR. Transfer report was given to RN via telephone at [facility] at ~1540.
== END 2016-12-30 15:30 | DRG 683 ==
LOC: EDBD 14:05 → EDUNIT# 14:05 → SED 14:05 → PCC 19:37
PROVIDERS: ADMIT Urology; ATTEND Urology
PROC: 4A033B1 Measurement of Arterial Pressure, Peripheral, Percutaneous Approach (ICD-10-PCS; principal; 2016-12-24)
DX: N17.9 Acute kidney failure, unspecified (principal); E87.2 Acidosis; N39.0 Urinary tract infection, site not specified; N18.3 Chronic kidney disease, stage 3 (moderate); D63.1 Anemia in chronic kidney disease; F03.90 Unspecified dementia, unspecified severity, without behavioral disturbance, psychotic disturbance, mood disturbance, and anxiety; E21.1 Secondary hyperparathyroidism, not elsewhere classified; T39.395A Adverse effect of other nonsteroidal anti-inflammatory drugs [NSAID], initial encounter; N05.9 Unspecified nephritic syndrome with unspecified morphologic changes; B96.20 Unspecified Escherichia coli [E. coli] as the cause of diseases classified elsewhere; R32 Unspecified urinary incontinence; S79.811A Other specified injuries of right hip, initial encounter; E55.9 Vitamin D deficiency, unspecified; J45.909 Unspecified asthma, uncomplicated; S30.814A Abrasion of vagina and vulva, initial encounter; M10.9 Gout, unspecified; W18.39XA Other fall on same level, initial encounter; Z88.0 Allergy status to penicillin; Y92.000 Kitchen of unspecified non-institutional (private) residence as the place of occurrence of the external cause

== ENCOUNTER 2017-02-25 16:58 | Inpatient (IN) | payer OTHER, MEDICARE, MEDICAID ==
[~2017-02-25] VITALS: Ht 165.1 cm; Wt 89.4 kg
[~2017-02-25 16:58] MED LIST changes: +ASCO500C6 PO; -CEPH-512 PO; +CHOL5000 PO; +FERR-83 PO; +NYST15CR TP
[2017-02-25 17:03] VITALS: BP 110/71; PULSE 97; RESP 15; O2SAT 96
--- NOTE | 2017-02-25 18:11 | ED.REPORT ---
HPI-General Illness Date of Service Feb 25, 2017 ED Provider: Abelardo Dickey MD Patient is a 71 year old female with a history of stage V kidney disease and recurrent UTI's, urinary incontinence presenting with urinary frequency/dysuria that began a few days ago. Patient had an US this morning that revealed bilateral hydronephrosis and ureterectasis. Dr. Moya directed the patient to the ED to "receive a catheter and further workup". She denies any recent abdominal pain, flank pain, hematuria, urinary retention. Patient is not currently taking any medication. Nursing Notes Stated Complaint: URINE BACKING UP TO KIDNEY Chief Complaint: Female Abdominal Pain Nursing Notes Reviewed: Yes Allergies: Coded Allergies: Penicillins (Verified Allergy, Intermediate, Nausea,Vomiting, 02/25/17) peanut (Verified Allergy, Intermediate, Nausea,Vomiting, 02/25/17) Scheduled Multivitamin (Multi Vitamin Daily) 1 Each Tablet 1 EACH PO DAILY Sodium Bicarbonate (Sodium Bicarbonate) 650 Mg Tablet 1,300 MG PO BID Scheduled PRN Zinc Oxide (Desitin) 60 Gm Cream..g. 1 APPLIC TOP DAILY PRN PRN SKIN BREAKDOWN General Time Seen by MD: 18:08 Chief Complaint Other (Urinary Incontinence) Hx Obtained From: Patient Arrived By: Walk-in Sudden in Onset?: No Onset Occurred: 9 - 12 hours ago Symptom Duration: Since onset Associated with: Denies: Abdominal pain, Pain Pertinent Negative: Pt denies other symptoms Recent Healthcare: No recent hospitalization, Recent doctor visit Past Medical History Past Medical History Chronic kidney disease History of UTI Alcohol abuse, sober fro 22 years. Reports: Asthma Reports: Dementia Past Surgical History Reports: Cholecystectomy Smoking History Never Smoker Social History Alcohol Use: Denies alcohol use Drug Use: Denies drug use Other Social History: Good social support, , Local resident Ambulatory Status Wheelchair Review of Systems Full Review of Systems GI: Denies: Abdominal pain Female: Reports: Incontinence, Denies: Dysuria, Flank pain, Hematuria, Urination decreased Complete sys rev & neg: except as marked. Physical Exam Vital Signs Vital Signs Date Time Temp Pulse Resp B/P Pulse Ox O2 Delivery O2 Flow Rate FiO2 02/25/17 21:38 75 15 123/73 97 Room Air 02/25/17 17:03 37.1 97 15 110/71 96 Initial VS: Reviewed Neck: Supple, Non-tender, Full range of motion Skin: Warm, Dry, No cyanosis Neurologic: Alert, Oriented, Nonfocal Psychiatric: Mood/affect normal, Behavior normal, Normal thought content General/Constitutional: Awake, Alert, No acute distress, Well appearing, Well developed, Not toxic appearing Respiratory / Chest: Atraumatic, Breath sounds NL, Breath sounds = bilat, No respiratory distress Cardiovascular: Heart rate NL, Regular rhythm, Heart sounds NL, No gallop, No murmurs, No rubs Abdomen: Atraumatic, Soft, Non-tender, No distention Back: Atraumatic, Inspection NL BACK: No percussive flank tenderness Upper Extremities Upper Extremity / MS: Atraumatic, Inspection NL, Neurologic intact, Vascular intact Lower Extremity / Pelvis / MS: Atraumatic, Inspection NL, Neurologic intact, Vascular intact, No edema LOWER EXTREMITIES: No calf swelling of tenderness Interpretation & Diagnostics Lab Results Interpretation Result Diagram: 02/25/17191902/25/171919 Test 02/25/17 19:20 02/25/17 20:03 White Blood Count 8.8th/mm3 (3.8-10.1) Red Blood Count 3.56mil/mm3 (3.90-5.20) Hemoglobin 10.9g/dL (12.0-15.6) Hematocrit 34.8% (35.0-46.0) Mean Corpuscular Volume 97.8fL (81-100) Mean Corpuscular Hemoglobin 30.6pg (27.0-35.0) Mean Corpuscular Hemoglobin Concent 31.3% (32.0-37.0) Red Cell Distribution Width 13.2% (12.3-15.4) Platelet Count 278bil/L (150-400) Neutrophils (%) (Auto) 75.3% (40-74) Lymphocytes (%) (Auto) 9.3% (14-46) Monocytes (%) (Auto) 13.2% (4-12) Eosinophils (%) (Auto) 0.5% (0-5) Basophils (%) (Auto) 0.3% (0-3) Sodium Level 135mEq/L (134-144) Potassium Level 5.8mEq/L (3.5-5.2) Chloride Level 106mEq/L (97-108) Carbon Dioxide Level 16mmol/L (18-29) Blood Urea Nitrogen 45mg/dL (8-27) Creatinine 4.38mg/dL (0.57-1.00) Estimat Glomerular Filtration Rate 14mL/min (>59) Glucose Level 113mg/dL (60-99) Calcium Level 8.8mg/dL (8.5-10.1) Magnesium Level 2.0mg/dL (1.6-2.6) Total Bilirubin 0.4mg/dL (0.0-1.2) Aspartate Amino Transf (AST/SGOT) 17U/L (0-50) Alanine Aminotransferase (ALT/SGPT) 11U/L (0-32) Alkaline Phosphatase 89U/L (25-165) Total Protein 7.5g/dL (6.4-8.4) Albumin 2.9g/dL (3.4-5.0) Lipase 58U/L (13-60) Urine Color Yellow (YELLOW) Urine Appearance Turbid (CLEAR,HAZY) Urine pH 5.5 (5.0-8.0) Urine Specific [place] 1.015 (1.003-1.035) Urine Protein 100mg/dL (NEG,TRACE) Urine Glucose (UA) Negativemg/dL (NEGATIVE) Urine Ketones Negativemg/dL (NEGATIVE) Urine Occult Blood Small (NEGATIVE) Urine Nitrite Positive (NEGATIVE) Urine Bilirubin Negative (NEGATIVE) Urine Urobilinogen Normalmg/dL (NORMAL) Urine Leukocyte Esterase Large (NEGATIVE) Urine RBC 3-10/hpf (0-2) Urine WBC >50/hpf (0-5) Urine Epithelial Cells Moderate/hpf (NONE-MOD) Urine Crystals None seen (NONE SEEN) Urine Bacteria Moderate/hpf (NONE-FEW) Urine Hyaline Casts None/lpf (NONE) Urine Granular Casts None seen (NONE SEEN) Urine Waxy Casts None seen (NONE SEEN) Urine Red Blood Cell Casts None seen (NONE SEEN) Urine White Blood Cell Casts None seen (NONE SEEN) Urine Mucus None seen (None Seen) Urine Trichomonas None seen (NONE SEEN) Urine Yeast None (NONE SEEN) Urinalysis Comment None Urine Culture Reflexed Indicated Re-Eval/Medical Decision Med Decision/Clinical Course Patient is a 71 year old female with a history of stage V kidney disease and recurrent UTI's, urinary incontinence presenting with urinary frequency/dysuria that began a few days ago. Patient had an US this morning that revealed bilateral hydronephrosis and ureterectasis. Dr. Moya directed the patient to the ED to "receive a catheter and further workup". She denies any recent abdominal pain, flank pain, hematuria, urinary retention. Here in the emergency department the patient is afebrile, hemodynamically stable and nontoxic in appearance with examination as above. A Barakat catheter was placed and 200 mL of cloudy urine were present in the patient's bladder. US - 02/25/17 IMPRESSION: 1. Bilateral hydronephrosis and ureterectasis without obstructing lesion identified. Findings discussed with Dr. Moya by the regulatory scientist at 4:20 pm on 02/25/2017. At his request the patient will proceed to the emergency department. 2. Bilateral chronic renal disease. Dictated by: Daniel Hunt M.D. on 02/25/2017 at 16:29 LABS Hct 34.8 - improved from prior No leukocytosis Creatinine - 4.38 - near baseline BUN 45 - increased from prior K+ - 5.8 - increased from prior positive Nitrites large leukesterase Given findings as above consistent with urinary tract infection 2 sets of blood cultures were obtained and the patient was started on IV ceftriaxone. I reviewed previous urine cultures which demonstrated pansensitive Escherichia coli. Patient was discussed with urology and they stated that they would not likely place ureteral stents at this time given that the patient is not toxic in appearance due to concern that this could potentially result in development of worsening infection and hydronephrosis. They recommended patient be discharged and they will follow along closely. Patient remained stable and in no apparent distress. Patient was discussed with the admitting hospitalist and accepted for further management. Time of Eval: 21:21 Patient Status: Condition improved Re-Evaluation/Progress Note: Patient is rechecked. She is informed of her results and diagnosis. All questions about the intended treatment plan are addressed. She agrees with the plan to admit. Consultation #1: Referral / Consult Name: Dl Diez Consulted With: Urology Call Returned at: 21:21 Wood Coater: Will see patient, Agrees with eval, Agrees with plan Consultation #2: Referral / Consult Name: Alycia Velazquez DO Consulted With: Hospitalist Call Returned at: 21:58 Wood Coater: Will see patient, Agrees with eval, Agrees with plan, Accepts admit Counseled Regarding: Diagnosis, Lab results, Need for admission Discharge & Departure Primary Impression: Bilateral hydronephrosis Additional Impressions: UTI (urinary tract infection) Urinary tract infection type: site unspecified Hematuria presence: without hematuria Qualified Code: N39.0 - Urinary tract infection, site not specified Hyperkalemia [id number] kidney injury Disposition: ADMITTED TO HOSPITAL Discharge Condition All VS Reviewed: Yes Condition: Stable Referrals: Livier Irving MD (PCP) Crit Care Except Billable Proc Time Spent: 30-74 minutes Services Performed: Patient management by me, Time spent at bedside, Reviewing test results, Reviewing imaging, Discussing patient care, Documentation in record, Time with fam/surrogate Scribe Attestation Portions of this note were transcribed by Emelyn Vigil. I, Dr. Dickey personally performed the history, physical exam and medical decision-making; I reviewed and confirmed the accuracy of the information in the transcribed note. Signed by: Girish Ro, 02/25/17 2158. copies to: Livier Irving MD, Beck O MD Feb 25, 2017 18:11 EMELYN VIGIL Feb 25, 2017 18:32
[2017-02-25 19:43] LABS: BASOPHILS % (AUTO) 0.3 % (0-3); EOSINOPHILS % (AUTO) 0.5 % (0-5); MONOCYTES % (AUTO) 13.2 % (4-12); Mean Corpuscular Hemoglobin 30.6 pg (27.0-35.0); Mean Corpuscular Volume 97.8 fL (81-100); NEUTROPHILS % (AUTO) 75.3 % (40-74); Platelet Count 278 bil/L (150-400)
[2017-02-25 20:39] LABS: APPEARANCE,URINE TURBID (CLEAR,HAZY); COLOR,URINE YELLOW (YELLOW); OCCULT BLOOD,URINE SMALL (NEGATIVE); PH,URINE 5.5 (5.0-8.0); UROBILINOGEN,URINE NORMAL (NORMAL)
[2017-02-25] MEDS ORDERED: 0.9% Sodium Chloride 1,000 ML IV ONE (21:20)
[2017-02-25] MEDS ORDERED: ZINC56OI2 TOP (21:29)
[2017-02-25] MEDS ORDERED: MULT-1018 PO (21:29)
[2017-02-25] MEDS ORDERED: SODI650T PO (21:29)
[2017-02-25] MEDS ORDERED: cefTRIAXone Inj 2,000 MG in Dextrose 5% Minibag Plus 50 ML IV ONE (21:35)
[2017-02-25 21:38] VITALS: BP 123/73; PULSE 75; RESP 15; O2SAT 97
[2017-02-25] MEDS ORDERED: Alum-Mag Hydrox-Simeth 30 mL Suspension PO PRN (22:10)
[2017-02-25] MEDS ORDERED: Ondansetron 2 mg/mL 2 mL Inj IVPUSH PRN (22:10)
[2017-02-25] MEDS ORDERED: Polyethylene Glycol (PEG) 17 Gm Powder PO PRN (22:10)
[2017-02-25 22:51] VITALS: BP 123/73; PULSE 75; RESP 15; O2SAT 97
--- NOTE | 2017-02-25 23:04 | PCM.HPMED ---
Subjective Date of Service Feb 25, 2017 Primary Provider: Admitting Physician: Alycia Velazquez DO Primary Care Physician: Livier Irving MD Attending Physician: Alycia Velazquez DO Admit Status: From the Emergency Department Chief Complaint: Urinary incontinence History of Present Illness: The patient is a 71-year-old female with past medical history remarkable for recent diagnosis of stage IV chronic kidney disease with concomitant distal bilateral hydroureter seen on CT imaging who presents to the [facility] emergency Department after ultrasound imaging showed bilateral hydronephrosis. The patient denies any new acute changes in her urinary system including no pain on urination, increased urgency or increased frequency of urination, back or flank pain or hematuria. The patient states that she simply presented to the emergency department because the automotive service technician did not like the appearance of her kidneys on ultrasound imaging and called into her hardwood faller Dr. Irving, who asked that the patient be sent to [facility] for evaluation. The patient denies being seen by another physician other than Dr. Irving and her primary care physician Dr. Madera. She was recently started on a new medication sodium bicarbonate. Urology was consulted from the [facility] emergency Department where the patient was diagnosed with a urinary tract infection and placed on Rocephin antibiotics. The report from the emergency department is that urology feels uncomfortable placing ureteral stents for decompression given an ongoing urinary tract infection. Patient reportedly has a new patient appointment scheduled with Dr. Chowdary of nephrology on 03/16/2017 to discuss her future needs for hemodialysis given her stage IV chronic kidney disease. Review of Systems: A comprehensive review of systems was obtained and all are negative except for what is included in the history of present illness. Allergies Coded Allergies: Penicillins (Verified Allergy, Intermediate, Nausea,Vomiting, 02/25/17) peanut (Verified Allergy, Intermediate, Nausea,Vomiting, 02/25/17) Home Medications Denies Multivitamin 1 EACH PO DAILY Sodium Bicarbonate 1,300 MG PO BID Zinc Oxide 1 APPLIC TOP DAILY PRN SKIN BREAKDOWN [facility] records indicate Vitamin D3 5000 units every day Ferrous sulfate 325 mg 1 tablet daily Vitamin C 500 mg 1 tablet daily PMH Asthma Gout Osteoarthritis Urinary incontinence 3 normal vaginal deliveries Chronic kidney disease stage IV possibly secondary to chronic NSAID use for gout and arthritis Alcohol , sober fro 22 years. Recently diagnosed with Alzheimer's dementia by her primary care physician Surgical History Cholecystectomy Family History The patient was adopted with no known family history of any diseases Social History Occupation: retired Hx Alcohol Use: No Hx Substance Use: No Hx Tobacco Use: No Smoking Status: Never Smoker Living Arrangement: with Family Exam Vital Signs Vital Sign - Last Date Time Temp Pulse Resp B/P Pulse Ox O2 Delivery O2 Flow Rate FiO2 02/25/17 22:51 37.1 75 15 123/73 97 Room Air Exam Gen.: Elder female Patient is alert and oriented 3, in no acute distress Eyes: Pupils equal round reactive to light, extraocular motion intact, anicteric sclera, noninjected conjunctiva HENT: Normocephalic atraumatic, moist mucous membranes without central cyanosis , oropharynx clear without cobblestoning mucosa, Neck: No JVD noted. Trachea midline without lymphadenopathy or thyromegaly Cardiovascular: Regular rate and rhythm with no murmurs rubs or gallops noted Lungs: Clear to auscultation bilaterally without wheezing rales or rhonchi Abdomen: Normoactive bowel sounds, nontender without guarding or rebound, nondistended, tympanic to percussion Extremities: No cyanosis clubbing or edema noted, pulses intact bilaterally dorsalis pedis and radial arteries, right hand is contracted and closed and painful to attempt to open Skin: warm and dry, no erythema or rashes noted Neuro: No focal neurologic deficits noted, able to move all extremities except for chronic contracted right hand Psych: Normal mood and affect : Barakat catheter in place with light yellow urine in bag Lab and Diagnostics Result Diagram: 02/25/17191902/25/171919 Additional Diagnostics: US RENAL SONOGRAM IMPRESSION: 1. Bilateral hydronephrosis and ureterectasis without obstructing lesion identified. Findings discussed with Dr. Moya by the penal officer at 4:20 pm on 02/25/2017. At his request the patient will proceed to the emergency department. 2. Bilateral chronic renal disease. Dictated by: Daniel Hunt M.D. on 02/25/2017 at 16:29 Approved by: Daniel Hunt M.D. on 02/25/2017 at 16:[address] PELVIS WITHOUT CONTRAST on 12/23/2016 IMPRESSION: 1. No right hip fracture is evident. If there remains high clinical concern for a subtle right hip fracture, please consider obtaining an MRI of the hip for better evaluation. 2. Mild to moderate degenerative changes and osteopenia of the imaged bony structures of the pelvis. 3. Prominent thickening of the urinary bladder wall with surrounding edema and corresponding distal bilateral hydroureter and periureteral edema is suspicious for an ascending urinary tract infection. An infiltrative/neoplastic process is felt to be less likely, but cannot be completely excluded. Please correlate clinically. Dictated by: Satya Mccarthy M.D. on 12/23/2016 at 15:17 Approved by: Satya Mccarthy M.D. on 12/23/2016 at 15:25 Assessment & Plan The patient is a 71-year-old female with past medical history remarkable for recent diagnosis of stage IV chronic kidney disease with concomitant distal bilateral hydroureter seen on CT imaging who presents to the [facility] emergency Department after ultrasound imaging showed bilateral hydronephrosis. # Acute urinary tract infection - Patient denies complaints of urinary tract infection including dysuria, increased urgency or frequency - UA shows WBCs > 50, with large leukocyte esterase, and positive nitrites with moderate bacteria and moderate epithelial cells - Given the lack of symptoms this could be colonization with concomitant contamination, UA will be sent for culture - Prior hospitalization for urinary tract infection showed cultures positive for Escherichia coli with good sensitivities - The patient was started on Rocephin IV - Avoid nephrotoxic agents - Continue Rocephin 2 g IV daily # Acute on chronic bilateral hydronephrosis - Patient denies worsening back or flank pain or inability to empty bladder, patient describes chronic urinary incontinence - Prior CT imaging (impression included above) at the time of hospitalization on December 23, 2016 described thickening of the bladder wall and distal bilateral hydroureter making chronic kidney disease due to urinary obstruction a possibility given worsening hydronephrosis seen on ultrasound today - Urology was consulted from the emergency department and will see the patient in the a.m. - Given likely need for ureteral stenting/decompression antibiotics will be continued in the postoperative period and a sterile environment for future ureteral stent placement # hyperkalemia, acute - Potassium at admission is 5.8, likely elevated secondary to chronic kidney disease - Kayexalate one time dose given at admission - Monitor # Chronic kidney disease stage IV - Creatinine at admission is 4.38 which appears to be an approximate baseline when compared to prior hospitalization in December 23, 2016 to December 29, 2016 - Review of records indicate a baseline creatinine of 1.4-1.5 at approximately 5 years ago - At prior hospitalization chronic kidney disease was thought to be due to chronic NSAID use as Patient described chronic use of Naproxen every 4 hours for the last several years to treat chronic arthritis and gout joint pain - Prior CT imaging (impression included above) at the time of hospitalization on December 23, 2016 described thickening of the bladder wall and distal bilateral hydroureter making chronic kidney disease due to urinary obstruction a possibility given worsening hydronephrosis seen on ultrasound today - Calcium acetate 667 mg 3 times a day for phosphate binding - Patient was previously started on oral sodium bicarbonate likely by patient's hardwood faller , this may be restarted in the a.m. - Nephrology consultation placed as next Gen. records indicate a new patient appointment scheduled with Dr. Chowdary of nephrology on 03/16/2017, likely to discuss possible need for dialysis in the future # Anemia secondary to chronic kidney disease - previously diagnosed as secondary to chronic kidney disease with low TIBC and normal iron and ferritin - Nephrology consulted and we appreciate to recommendations, patient was previously given a one time dose of darbepoetin # Chronic hyperparathyroidism - Secondary to chronic kidney disease noted on last admission - initiate PhosLo 3 times a day - Encourage vitamin D supplementation # Chronic interstitial nephritis - UA shows small amount of occult blood with 3-10 RBCs - likely will need baseline protein creatinine ratio however ongoing UTI with increased WBC and bacteria is unlikely to give fair baseline assessment - Nephrology consulted and we appreciate to recommendations DVT prophylaxis: Heparin 5000 units 3 times a day GI prophylaxis: Not indicated at this time CODE STATUS full Patient is admitted for observation status given presenting symptoms, likely diagnosis, possible complications, and required treatment expected length of stay less than 2 midnights. Pain Evaluation: Adequate Pain Control GI Prophylaxis: Not indicated VTE Prophylaxis Indicated: Meets Criteria for Anticoag Therapy VTE Prophylaxis: Sub-Q Heparin (Unfractionated), SCDs VTE Mechanical Devices: Intermittant Pneumatic CD Resuscitation Status: CPR: Attempt Resuscitation Attending Statement The patient was seen and examined together with house staff on 02/25/2017 and I agree with the history, exam and plan as outlined in the note above. Berny Prater DO Feb 25, 2017 23:04 Alycia Velazquez DO Feb 26, 2017 04:52
[2017-02-25 23:16] VITALS: BP 183/76; PULSE 82; RESP 18; O2SAT 100
[2017-02-26] MEDS: Heparin 5,000 Unit/mL Inj SUBQ SCH ×3 (01:09→16:34)
--- NOTE | 2017-02-26 01:59 | NUR ---
Admit to Room 1011 Patient arrived to room 1011 at approximately 2300, accompanied by ED staff and son. Patient did introduce her son as her . Patient exhibits some forgetfulness. Patients initial blood pressure was slightly elevated. Other VSS. Patient has large bm and did not know how to wipe. Soiled paper towel thrown on bathroom floor. On assessment, patient presented with large red rash between thighs and vinay area. Kayexalate was administered for elevated potassium. Call light within reach. Care continues.
[2017-02-26 05:46] VITALS: BP 167/82; PULSE 71; RESP 16; O2SAT 93
[2017-02-26 07:19] LABS: BASOPHILS % (AUTO) 0.4 % (0-3); EOSINOPHILS % (AUTO) 1.2 % (0-5); MONOCYTES % (AUTO) 10.5 % (4-12); Mean Corpuscular Volume 96.1 fL (81-100); NEUTROPHILS % (AUTO) 75.3 % (40-74); Platelet Count 224 bil/L (150-400)
[2017-02-26 09:51] VITALS: BP 141/68; PULSE 80; RESP 18; O2SAT 94
--- NOTE | 2017-02-26 11:31 | NUR ---
JESUSITA explained and signed. Copy of JESUSITA and Medicare self administered medication information given to pt.
--- NOTE | 2017-02-26 12:00 | PCM.DIMED ---
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
--- NOTE | 2017-02-26 13:14 | CONS ---
[address] [address] CONSULTATION REPORT PATIENT: RAMON NEWMAN : 1945 MR#: [id number] ADMIT: 02/25/2017 JOB ID: [id number] DATE OF SERVICE: 02/26/2017 RENAL CONSULTATION: HISTORY: The patient is a 71-year-old white female who has a longstanding history of stage 4/5 chronic kidney disease. She is being followed by an outside bus driver/monitor. She was found yesterday to have bilateral hydronephrosis on an ultrasound and was referred to [facility] for further evaluation of her acute obstructive uropathy. Unfortunately the patient is a very very poor historian and probably has a large component of multiple infarct dementia. She was recently hospitalized in late December of this year for acute on chronic kidney injury secondary to acute complicated urinary tract infection and dehydration. She was seen by my partner, Dr. Chowdary, at that time. It was her impression that the chronic kidney disease is most likely secondary to chronic interstitial nephritis from long-term NSAID therapy and urate nephropathy. She also had other manifestations of chronic kidney disease, namely hypocalcemia, hyperphosphatemia, anemia, and an increased anion gap metabolic acidosis. At time of admission, her BUN and creatinine were 45 and 4.38, with a potassium of 5.8 and a bicarbonate of 16. Her urine showed a large amount of white blood cells with bacteria noted. She has been empirically treated with antibiotics and she is also being seen by Dr. Diez from Urology. PAST MEDICAL HISTORY: As detailed above, the patient is unable to give much history due to memory issues. As noted above she has a history of chronic kidney disease, gout, asthma, dementia, and a remote history of alcoholism. She also has a history of recurrent urinary tract infections. Apparently there is no history of any prior hypertension or diabetes. PAST SURGICAL HISTORY: Significant for cholecystectomy. ALLERGIES: PENICILLIN AND PEANUTS. SOCIAL HISTORY: She denies the current use of alcohol, tobacco, or illicit drugs. She lives with family. CURRENT MEDICATIONS: Include multiple vitamins and sodium bicarbonate. FAMILY HISTORY: Unobtainable. REVIEW OF SYSTEMS: Unobtainable. PHYSICAL EXAMINATION: Revealed a pale, mildly chronically ill-appearing, 71-year-old, white female, who was alert and only able to answer very simple questions. Her blood pressure was 141/68 with a pulse rate of 80. HEENT examination is remarkable for pale sclerae. Neck is supple, without adenopathy, thyromegaly, or jugular venous distention. Lungs are clear to auscultation, though somewhat diminished. Heart was regular and rhythmical with a soft systolic murmur. Abdomen is soft, without any tenderness, rebound, guarding, masses, or hepatosplenomegaly. Extremities do not show any evidence of any clubbing, cyanosis, or edema. Skin turgor is good. LABORATORY EXAMINATION: This morning her white count is 5.1, hemoglobin of 10.9, hematocrit 34.9. Red cell indices, platelet count, and differential were normal. Her sodium is 140, potassium 5.2, chloride of 108, bicarbonate 15. BUN and creatinine were 40 and 4.14, which is back to about her baseline. Her LFTs are normal. IMPRESSION: 1. Chronic interstitial nephritis. 2. Chronic kidney disease (CKD) stage 5. 3. Metabolic acidosis secondary to chronic kidney disease. 4. Anemia secondary to chronic kidney disease. 5. Acute urinary tract obstruction. 6. Multi-infarct dementia. RECOMMENDATION: I await the input from Dr. Diez from Urology and await the culture results on her urine Once again, I would like to thank you for allowing me to participate in the care of this most pleasant and interesting patient. I will be following her closely with you.
[2017-02-26 13:16] VITALS: BP 170/70; PULSE 76; RESP 19; O2SAT 99
[2017-02-26 17:16] VITALS: BP 128/76; PULSE 76; RESP 19; O2SAT 97
--- NOTE | 2017-02-26 18:38 | NUR ---
Repetition Patient asked the same question multiple times throughout the day. "What are we doing with this IV?" "When am I being discharged?" Explained to patient why we keep IV access patent, and that since she is a hard stick it is better to keep the line in that she has rather than to poke her multiple times for another. Also explained that we are waiting for results to order the correct antibiotics for her UTI so she will be able to go home in a couple of days. Patient said "oh in my uterus.". Informed patient that the infection was in her bladder and not her uterus and that's why she has the harper catheter in. Patient showed verbal understanding after each attempt to answer any questions she had. A&OX3. Hourly rounding continues.
[2017-02-26 20:04] VITALS: BP 143/81; PULSE 75; RESP 18; O2SAT 97
[2017-02-26] MEDS ORDERED: 0.9% Sodium Chloride 250 ML ONE (22:03)
[2017-02-26] MEDS: cefTRIAXone Inj 2,000 MG in Dextrose 5% Minibag Plus 50 ML IV SCH (22:09)
--- NOTE | 2017-02-26 22:11 | PCM.PNMED ---
Subjective Date of Service Feb 26, 2017 Subjective Patient is beginning to feel little bit better. However, she still feels poorly. Exam Vital Signs Vital Sign - Last Date Time Temp Pulse Resp B/P Pulse Ox O2 Delivery O2 Flow Rate FiO2 02/26/17 20:04 36.8 75 18 143/81 97 Room Air Intake and Output 02/25/17 02/25/17 02/26/17 Cumulative From/Thru 15:00 23:00 07:00 02/25/17 17:03 - 02/26/17 06:31 Intake Total 1050 ml 450 ml 1500 ml Output Total 200 ml 1250 ml 1450 ml Balance 850 ml -800 ml 50 ml Intake Oral 450 ml 450 ml IV Total 1050 ml 1050 ml Output Urine Total 200 ml 1250 ml 1450 ml # Bowel Movements 3 3 Exam General: The patient is lying supine in bed in no apparent distress. HEENT: Head is atraumatic and normocephalic. Eyes: Pupils are equally round and reactive to light and accommodation. Extraocular muscles are intact. Sclera are white, anicteric. Subconjunctival mucosa is pink. Ears and nose are unremarkable. Oropharynx: There is no mucosal lesions, there is no thrush, there is no pharyngitis. Neck: Is supple, there are no nodes, or masses or tenderness. Chest: Is clear to auscultation and percussion. There are no rales, rhonchi, wheezes or rubs. Heart: Rate, rhythm is regular. There is no murmur, rub or gallop. Abdomen: Good bowel sounds are present. Abdomen is soft, nontender, no organomegaly or masses were appreciated. Extremities: Are symmetrical and well perfused. There is no edema, there is no cellulitis, no rash. There is no significant ruber, calor or dolor of her right or left knee. There is no rubor, calor or door of her hands or feet. Neurologic: There are no focal neurological deficits. Cranial nerves II through XII are intact. There are no sensory or motor deficits. Psychiatric: Patients mood is calm and shows no sign of agitation. Genital: Deferred Rectal: Deferred Lab and Diagnostics Result Diagram: 02/26/17 0638 02/26/17 0638 Microbiology Name: RAMON NEWMAN Age/Sex: 71/F Attend Dr: Dl Christensen Acct: [id number] Unit: [id number] Status: ADM Jm Location: [facility] 1011-1 Re02/25/17 Disch: Specimen: [id number] Collected: 02/25/17 Status: RES Req#: [id number] Received: 02/25/17 Source: RANDOM Sp Desc : PP Elian Dr: Abelardo Dickey MD Ordered: URINE CULT Procedure Result Verified Site Microbiology MARY CULT URINE Preliminary 02/26/17 PRELIMINARY ID GRAM NEGATIVE JEFFERSON ID AND SENS TO FOLLOW COLONY COUNT/QUANTITY >100,000 CFU/ml X-Rays, CTs and MRIs PATIENT NAME: RAMON NEWMAN MR#: [id number] LOCATION: [facility] ORDERING PHYS: Livier Irving MD DATE OF SERVICE: 02/25/17 1530 PROCEDURE: US RENAL SONOGRAM INDICATIONS: CHRONIC KIDNEY DISEASE STAGE 5 TECHNIQUE: Real-time scanning was performed of the kidneys and bladder, with image documentation. COMPARISON: None. FINDINGS: Kidneys: Marked bilateral parenchymal atrophy and increased echogenicity consistent with known chronic renal dysfunction. Bilateral hydronephrosis and ureterectasis right greater than left with no obstructing lesions identified. No solid masses. Benign right renal cyst. Bladder: Pre-void bladder volume is 47 mL. Post-void residual is 50 mL. Pre- void images demonstrate no intraluminal masses or stones. On pre-void images, no ureteral jets are noted with color Doppler interrogation. (Of note, ureteral jets may not be detectable in up to 25% of cases due to insufficient differences in specific gravity between ureteral and bladder urine). Miscellaneous: No free pelvic fluid. IMPRESSION: 1. Bilateral hydronephrosis and ureterectasis without obstructing lesion identified. Findings discussed with Dr. Moya by the billet assembler at 4:20 pm on 02/25/2017. At his request the patient will proceed to the emergency department. 2. Bilateral chronic renal disease. Dictated by: Daniel Hunt M.D. on 02/25/2017 at 16:29 Approved by: Daniel Hunt M.D. on 02/25/2017 at 16:33 Additional Diagnostics US RENAL SONOGRAM IMPRESSION: 1. Bilateral hydronephrosis and ureterectasis without obstructing lesion identified. Findings discussed with Dr. Moya by the billet assembler at 4:20 pm on 02/25/2017. At his request the patient will proceed to the emergency department. 2. Bilateral chronic renal disease. Dictated by: Daniel Hunt M.D. on 02/25/2017 at 16:29 Approved by: Daniel Hunt M.D. on 02/25/2017 at 16:[address] PELVIS WITHOUT CONTRAST on 12/23/2016 IMPRESSION: 1. No right hip fracture is evident. If there remains high clinical concern for a subtle right hip fracture, please consider obtaining an MRI of the hip for better evaluation. 2. Mild to moderate degenerative changes and osteopenia of the imaged bony structures of the pelvis. 3. Prominent thickening of the urinary bladder wall with surrounding edema and corresponding distal bilateral hydroureter and periureteral edema is suspicious for an ascending urinary tract infection. An infiltrative/neoplastic process is felt to be less likely, but cannot be completely excluded. Please correlate clinically. Dictated by: Satya Mccarthy M.D. on 12/23/2016 at 15:17 Approved by: Satya Mccarthy M.D. on 12/23/2016 at 15:25 Assessment & Plan The patient is a 71-year-old female with past medical history remarkable for recent diagnosis of stage IV chronic kidney disease with concomitant distal bilateral hydroureter seen on CT imaging who presents to the [facility] emergency Department after ultrasound imaging showed bilateral hydronephrosis. # Acute urinary tract infection - Patient denies complaints of urinary tract infection including dysuria, increased urgency or frequency - UA shows WBCs > 50, with large leukocyte esterase, and positive nitrites with moderate bacteria and moderate epithelial cells - Given the lack of symptoms this could be colonization with concomitant contamination, UA was sent for culture and is positive for greater than 100,000 gram-negative rods. - Prior hospitalization for urinary tract infection showed cultures positive for Escherichia coli with good sensitivities - The patient was started on Rocephin IV - Avoid nephrotoxic agents - Continue Rocephin 2 g IV daily # Acute on chronic bilateral hydronephrosis - Patient denies worsening back or flank pain or inability to empty bladder, patient describes chronic urinary incontinence - Prior CT imaging (impression included above) at the time of hospitalization on December 23, 2016 described thickening of the bladder wall and distal bilateral hydroureter making chronic kidney disease due to urinary obstruction a possibility given worsening hydronephrosis seen on ultrasound today - Urology was consulted and Dr. Diez saw the patient today. Awaiting his recommendations. - Given likely need for ureteral stenting/decompression antibiotics will be continued in the postoperative period and a sterile environment for future ureteral stent placement # Hyperkalemia, present at the time of admission. Active - Potassium at admission is 5.8, likely elevated secondary to chronic kidney disease - Kayexalate one time dose given at admission - Monitor # Chronic kidney disease stage V, present of the time admission. Active - Creatinine at admission is 4.38 which appears to be an approximate baseline when compared to prior hospitalization in December 23, 2016 to December 29, 2016 - Review of records indicate a baseline creatinine of 1.4-1.5 at approximately 5 years ago - At prior hospitalization chronic kidney disease was thought to be due to chronic NSAID use as Patient described chronic use of Naproxen every 4 hours for the last several years to treat chronic arthritis and gout joint pain - Prior CT imaging (impression included above) at the time of hospitalization on December 23, 2016 described thickening of the bladder wall and distal bilateral hydroureter making chronic kidney disease due to urinary obstruction a possibility given worsening hydronephrosis seen on ultrasound today - Calcium acetate 667 mg 3 times a day for phosphate binding - Patient was previously 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 - Nephrology consultation placed as next Gen. records indicate a new patient appointment scheduled with Dr. Chowdary of nephrology on 03/16/2017, likely to discuss possible need for dialysis in the future. The patient was seen by Dr. Marin today and this time and expertise. # Anemia secondary to chronic kidney disease - Previously diagnosed as secondary to chronic kidney disease with low TIBC and normal iron and ferritin - Nephrology consulted and we appreciate their recommendations, patient was previously given a one time dose of darbepoetin # Chronic hyperparathyroidism - Secondary to chronic kidney disease noted on last admission - initiate PhosLo 3 times a day - Encourage vitamin D supplementation # Chronic interstitial nephritis - UA shows small amount of occult blood with 3-10 RBCs - likely will need baseline protein creatinine ratio however ongoing UTI with increased WBC and bacteria is unlikely to give fair baseline assessment - Nephrology consulted and we appreciate to recommendations Disposition patient will be changed from observation to inpatient will require more than 2 midnights for evaluation and treatment of the above conditions. Pain Evaluation: Adequate Pain Control GI Prophylaxis: Not indicated VTE Prophylaxis: Sub-Q Heparin (Unfractionated), SCDs VTE Mechanical Devices: Intermittant Pneumatic CD Resuscitation Status: CPR: Attempt Resuscitation Dl Christensen MD Feb 26, 2017 22:11 VTE Mechanical Devices: Intermittant Pneumatic CD Resuscitation Status: CPR: Attempt Resuscitation Dl Christensen MD Feb 26, 2017 22:11
--- NOTE | 2017-02-27 00:07 | CONS ---
[address] [address] CONSULTATION REPORT PATIENT: RAMON NEWMAN : 1945 MR#: [id number] ADMIT: 02/25/2017 JOB ID: [id number] DATE OF SERVICE: REASON FOR CONSULTATION: Bilateral hydronephrosis. HISTORY OF PRESENT ILLNESS: This 71-year-old woman was referred to the emergency department by her primary care physician for the new finding of mild bilateral hydroureteronephrosis on ultrasound. A recent pelvic CT scan does show some dilation of the ureters. Previous imaging was reviewed and this hydronephrosis was not previously present. The patient is a poor historian. PAST MEDICAL, SOCIAL AND FAMILY HISTORY: Please see admission note. PHYSICAL EXAMINATION: On examination, a 71-year-old woman in no acute distress. Chest is clear. Normal respiratory effort. Cardiovascular: Heart sounds normal. Abdomen is soft, nontender. No masses. No organomegaly. There is no CVA tenderness. IMPRESSION: A 71-year-old woman with chronic renal failure with a new finding of hydroureteronephrosis bilaterally. She does have a urinary tract infection at this time. I am recommending eventual stent placement but I would like her to be on antibiotics for 48-72 hours. A culture is not yet available. I would consider stents more urgently should she become febrile or clearly septic. I will discuss the patient tomorrow with Dr. Marin.
[2017-02-27] MEDS: Heparin 5,000 Unit/mL Inj SUBQ SCH ×3 (00:18→16:26)
--- NOTE | 2017-02-27 01:47 | NUR ---
Pain Patient has been A&OX3 and pleasant this evening; however, Occasionally will repeat herself, and ask the same questions. Complains of back pain and always rates it as a 8/10. 650 PO tylenol given Q6 hours and upon reassessment patient states relief, but still rates pain 8/10. Second dose of Tylenol for this shift has been given tonight at 0142. Will continue to monitor and continue Q1 hour checks.
[2017-02-27 05:24] VITALS: BP 133/78; PULSE 65; RESP 18; O2SAT 99
[2017-02-27 06:17] LABS: BASOPHILS % (AUTO) 0.6 % (0-3); EOSINOPHILS % (AUTO) 2.9 % (0-5); MONOCYTES % (AUTO) 12.3 % (4-12); Mean Corpuscular Volume 97.3 fL (81-100); NEUTROPHILS % (AUTO) 61.5 % (40-74); Platelet Count 241 bil/L (150-400)
[2017-02-27 06:26] LABS: Phosphorus 5.3 mg/dL (2.5-4.9)
--- NOTE | 2017-02-27 10:01 | PROG NOTE ---
[address] [address] PROGRESS NOTE PATIENT: RAMON NEWMAN : 1945 MR#: [id number] ADMIT: 02/25/2017 JOB ID: [id number] DATE: 02/27/2017 SUBJECTIVE: Bilateral hydronephrosis with urinary tract infection. Urine culture has returned and shows a campuzano-sensitive E. coli. LABORATORY DATA: Creatinine is essentially unchanged. White count has reduced. ASSESSMENT AND PLAN: The cause of her hydronephrosis remains unclear. I am still concerned about stent placement because of the near certainty of introducing infection into the upper tracts. I will discuss this with Dr. Marin.
--- NOTE | 2017-02-27 12:33 | PCM.PNNEPH ---
Subjective Date of Service Feb 27, [address] Diez's note from urology's input is greatly appreciated. She has had marked increase in her urine output and carotid stenosis last 24 hours for 1220 50 out. Patient remains confused and is unaware of ever seen any getterer or urologist in the past. She remains afebrile. This morning her hemoglobin is 9.6, sodium is 138, potassium 4.7, chloride 107, bicarbonate 17, BUN and creatinine were 42 and 4.31 respectively. Exam Vital Signs Vital Sign - Last Date Time Temp Pulse Resp B/P Pulse Ox O2 Delivery O2 Flow Rate FiO2 02/27/17 05:24 36.8 65 18 133/78 99 Room Air Intake and Output 02/26/17 02/26/17 02/27/17 Cumulative From/Thru 15:00 23:00 07:00 02/25/17 17:03 - 02/27/17 06:24 Intake Total 750 ml 750 ml 3000 ml Output Total 800 ml 400 ml 2650 ml Balance -50 ml 350 ml 350 ml Intake Oral 750 ml 700 ml 1900 ml IV Total 50 ml 1100 ml Output Urine Total 800 ml 400 ml 2650 ml # Bowel Movements 1 4 Exam HEENT examination is remarkable for pale sclera. Mucous membranes are moist. Neck is supple without adenopathy thyromegaly or jugular venous distention. Lungs were clear to auscultation. Heart is regular and rhythmical with a soft systolic murmur. Abdomen soft without any tenderness rebound guarding masses or hepatosplenomegaly. Extremities did not show any evidence of any clubbing, cyanosis, or edema. Skin turgor is slightly diminished. Lab and Diagnostics Result Diagram: 02/27/17 0556 02/27/17 0556 Microbiology Name: RAMON NEWMAN Age/Sex: 71/F Attend Dr: Dl Christensen Acct: [id number] Unit: [id number] Status: ADM Jm Location: [facility] 1011-1 Re02/25/17 Disch: Specimen: [id number] Collected: 02/25/17 Status: RES Req#: [id number] Received: 02/25/17 Source: RANDOM Sp Desc : HALEY Plummer Dr: Abelardo Dickey MD Ordered: URINE CULT Procedure Result Verified Site Microbiology MARY CULT URINE Preliminary 02/26/17-828 PRELIMINARY ID GRAM NEGATIVE JEFFERSON ID AND SENS TO FOLLOW COLONY COUNT/QUANTITY >100,000 CFU/ml X-Rays, CTs and MRIs PATIENT NAME: RAMON NEWMAN MR#: [id number] LOCATION: [facility] ORDERING PHYS: Livier Irving MD DATE OF SERVICE: 02/25/17 1530 PROCEDURE: US RENAL SONOGRAM INDICATIONS: CHRONIC KIDNEY DISEASE STAGE 5 TECHNIQUE: Real-time scanning was performed of the kidneys and bladder, with image documentation. COMPARISON: None. FINDINGS: Kidneys: Marked bilateral parenchymal atrophy and increased echogenicity consistent with known chronic renal dysfunction. Bilateral hydronephrosis and ureterectasis right greater than left with no obstructing lesions identified. No solid masses. Benign right renal cyst. Bladder: Pre-void bladder volume is 47 mL. Post-void residual is 50 mL. Pre- void images demonstrate no intraluminal masses or stones. On pre-void images, no ureteral jets are noted with color Doppler interrogation. (Of note, ureteral jets may not be detectable in up to 25% of cases due to insufficient differences in specific gravity between ureteral and bladder urine). Miscellaneous: No free pelvic fluid. IMPRESSION: 1. Bilateral hydronephrosis and ureterectasis without obstructing lesion identified. Findings discussed with Dr. Moya by the sonography technician at 4:20 pm on 02/25/2017. At his request the patient will proceed to the emergency department. 2. Bilateral chronic renal disease. Dictated by: Daniel Hunt M.D. on 02/25/2017 at 16:29 Approved by: Daniel Hunt M.D. on 02/25/2017 at 16:33 Additional Diagnostics US RENAL SONOGRAM IMPRESSION: 1. Bilateral hydronephrosis and ureterectasis without obstructing lesion identified. Findings discussed with Dr. Moya by the sonography technician at 4:20 pm on 02/25/2017. At his request the patient will proceed to the emergency department. 2. Bilateral chronic renal disease. Dictated by: Daniel Hunt M.D. on 02/25/2017 at 16:29 Approved by: Daniel Hunt M.D. on 02/25/2017 at 16:[address] PELVIS WITHOUT CONTRAST on 12/23/2016 IMPRESSION: 1. No right hip fracture is evident. If there remains high clinical concern for a subtle right hip fracture, please consider obtaining an MRI of the hip for better evaluation. 2. Mild to moderate degenerative changes and osteopenia of the imaged bony structures of the pelvis. 3. Prominent thickening of the urinary bladder wall with surrounding edema and corresponding distal bilateral hydroureter and periureteral edema is suspicious for an ascending urinary tract infection. An infiltrative/neoplastic process is felt to be less likely, but cannot be completely excluded. Please correlate clinically. Dictated by: Satya Mccarthy M.D. on 12/23/2016 at 15:17 Approved by: Satya Mccarthy M.D. on 12/23/2016 at 15:25 Plan Impression Impression #1 chronic kidney disease stage V with mild acute exacerbation secondary to obstructive uropathy #2 chronic interstitial nephritis #3. Multi- infarct dementia #4 non-anion Metabolic acidosis #5 cystitis secondary to Escherichia coli. Recommendations #1 obviously continue antibiotics awaiting sensitivity #2 elective for some cautious volume expansion with half-normal saline at 50 an hour for 24 hours. We will also recommend continuing to follow her lab and await further input from neurology. Mele Marin DO Feb 27, 2017 12:32
--- NOTE | 2017-02-27 18:31 | NUR ---
Activity Pt continuing to have confusion and repeatedly asking the same questions. Pt confused over IV fluids, how she got infection and even why she is here. Pt has harper in place that is patent and draining to gravity, was also able to have large BM, but was unable to wipe self. Tylenol given for pain. Per report from president and ceo RN pt never slept last night and she never slept during this shift. Pt did ask for something to help her sleep at 1130 and advised that he had ordered Benadryl for 2100, but that we should hold off giving it until closer to that time. Pt agreeable to plan and did not ask for medication again. Bed in low, call light in reach, continue q1 hour rounding.
[2017-02-27 19:45] VITALS: BP 135/76; PULSE 75; RESP 20; O2SAT 97
[2017-02-27] MEDS: diphenhydrAMINE 25 mg Capsule PO PRN (20:49)
[2017-02-27] MEDS: cefTRIAXone Inj 2,000 MG in Dextrose 5% Minibag Plus 50 ML IV SCH (22:09)
--- NOTE | 2017-02-27 22:15 | PCM.PNMED ---
Subjective Date of Service Feb 27, 2017 Subjective Patient is more awake and alert however has very low level of comprehension of her current medical condition. She has no new specific complaints. Exam Vital Signs Vital Sign - Last Date Time Temp Pulse Resp B/P Pulse Ox O2 Delivery O2 Flow Rate FiO2 02/27/17 19:45 36.7 75 20 135/76 97 Room Air Intake and Output 02/26/17 02/26/17 02/27/17 Cumulative From/Thru 15:00 23:00 07:00 02/25/17 17:03 - 02/27/17 06:24 Intake Total 750 ml 750 ml 3000 ml Output Total 800 ml 400 ml 2650 ml Balance -50 ml 350 ml 350 ml Intake Oral 750 ml 700 ml 1900 ml IV Total 50 ml 1100 ml Output Urine Total 800 ml 400 ml 2650 ml # Bowel Movements 1 4 Exam General: The patient is lying supine in bed in no apparent distress. She is more awake and alert today. HEENT: Head is atraumatic and normocephalic. Eyes: Pupils are equally round and reactive to light and accommodation. Extraocular muscles are intact. Sclera are white, anicteric. Subconjunctival mucosa is pink. Ears and nose are unremarkable. Oropharynx: There is no mucosal lesions, there is no thrush, there is no pharyngitis. Neck: Is supple, there are no nodes, or masses or tenderness. Chest: Is clear to auscultation and percussion. There are no rales, rhonchi, wheezes or rubs. Heart: Rate, rhythm is regular. There is no murmur, rub or gallop. Abdomen: Good bowel sounds are present. Abdomen is soft, nontender, no organomegaly or masses were appreciated. Extremities: Are symmetrical and well perfused. There is no edema, there is no cellulitis, no rash. There is no significant ruber, calor or dolor of her right or left knee. There is no rubor, calor or door of her hands or feet. Neurologic: There are no focal neurological deficits. Cranial nerves II through XII are intact. There are no sensory or motor deficits. Patient is more awake and alert today. Psychiatric: Patients mood is calm and shows no sign of agitation. Genital: Deferred Rectal: Deferred Lab and Diagnostics Result Diagram: 02/27/17 0556 02/27/17 0556 Microbiology Name: RAMON NEWMAN Age/Sex: 71/F Attend Dr: Dl Christensen Acct: [id number] Unit: [id number] Status: ADM Jm Location: [facility] [place] 1011-1 Re02/25/17 Disch: Specimen: [id number] Collected: 02/25/17 Status: RES Req#: [id number] Received: 02/25/17 Source: RANDOM Sp Desc : HALEY Plummer Dr: Abelardo Dickey MD Ordered: URINE CULT Procedure Result Verified Site Microbiology MARY CULT URINE Preliminary 02/26/17-828 PRELIMINARY ID GRAM NEGATIVE JEFFERSON ID AND SENS TO FOLLOW COLONY COUNT/QUANTITY >100,000 CFU/ml X-Rays, CTs and MRIs PATIENT NAME: RAMON NEWMAN MR#: [id number] LOCATION: [facility] ORDERING PHYS: Livier Irving MD DATE OF SERVICE: 02/25/17 1530 PROCEDURE: US RENAL SONOGRAM INDICATIONS: CHRONIC KIDNEY DISEASE STAGE 5 TECHNIQUE: Real-time scanning was performed of the kidneys and bladder, with image documentation. COMPARISON: None. FINDINGS: Kidneys: Marked bilateral parenchymal atrophy and increased echogenicity consistent with known chronic renal dysfunction. Bilateral hydronephrosis and ureterectasis right greater than left with no obstructing lesions identified. No solid masses. Benign right renal cyst. Bladder: Pre-void bladder volume is 47 mL. Post-void residual is 50 mL. Pre- void images demonstrate no intraluminal masses or stones. On pre-void images, no ureteral jets are noted with color Doppler interrogation. (Of note, ureteral jets may not be detectable in up to 25% of cases due to insufficient differences in specific gravity between ureteral and bladder urine). Miscellaneous: No free pelvic fluid. IMPRESSION: 1. Bilateral hydronephrosis and ureterectasis without obstructing lesion identified. Findings discussed with Dr. Moya by the scientist electronics at 4:20 pm on 02/25/2017. At his request the patient will proceed to the emergency department. 2. Bilateral chronic renal disease. Dictated by: Daniel Hunt M.D. on 02/25/2017 at 16:29 Approved by: Daniel Hunt M.D. on 02/25/2017 at 16:33 Additional Diagnostics US RENAL SONOGRAM IMPRESSION: 1. Bilateral hydronephrosis and ureterectasis without obstructing lesion identified. Findings discussed with Dr. Moya by the scientist electronics at 4:20 pm on 02/25/2017. At his request the patient will proceed to the emergency department. 2. Bilateral chronic renal disease. Dictated by: Daniel Hunt M.D. on 02/25/2017 at 16:29 Approved by: Daniel Hunt M.D. on 02/25/2017 at 16:[address] PELVIS WITHOUT CONTRAST on 12/23/2016 IMPRESSION: 1. No right hip fracture is evident. If there remains high clinical concern for a subtle right hip fracture, please consider obtaining an MRI of the hip for better evaluation. 2. Mild to moderate degenerative changes and osteopenia of the imaged bony structures of the pelvis. 3. Prominent thickening of the urinary bladder wall with surrounding edema and corresponding distal bilateral hydroureter and periureteral edema is suspicious for an ascending urinary tract infection. An infiltrative/neoplastic process is felt to be less likely, but cannot be completely excluded. Please correlate clinically. Dictated by: Satya Mccarthy M.D. on 12/23/2016 at 15:17 Approved by: Satya Mccarthy M.D. on 12/23/2016 at 15:25 Assessment & Plan The patient is a 71-year-old female with past medical history remarkable for recent diagnosis of stage IV chronic kidney disease with concomitant distal bilateral hydroureter seen on CT imaging who presents to the [facility] emergency Department after ultrasound imaging showed bilateral hydronephrosis. # Acute urinary tract infection - Patient denies complaints of urinary tract infection including dysuria, increased urgency or frequency - UA shows WBCs > 50, with large leukocyte esterase, and positive nitrites with moderate bacteria and moderate epithelial cells - Given the lack of symptoms this could be colonization with concomitant contamination, UA was sent for culture and is positive for greater than 100,000 gram-negative rods. - Prior hospitalization for urinary tract infection showed cultures positive for Escherichia coli with good sensitivities - The patient was started on Rocephin IV - Avoid nephrotoxic agents - Continue Rocephin 2 g IV daily # Acute on chronic bilateral hydronephrosis - Patient denies worsening back or flank pain or inability to empty bladder, patient describes chronic urinary incontinence - Prior CT imaging (impression included above) at the time of hospitalization on December 23, 2016 described thickening of the bladder wall and distal bilateral hydroureter making chronic kidney disease due to urinary obstruction a possibility given worsening hydronephrosis seen on ultrasound today - Urology was consulted and Dr. Diez saw the patient today. Awaiting his recommendations. - Given likely need for ureteral stenting/decompression antibiotics will be continued in the postoperative period and a sterile environment for future ureteral stent placement # Hyperkalemia, present at the time of admission. Active - Potassium at admission is 5.8, likely elevated secondary to chronic kidney disease - Kayexalate one time dose given at admission - Monitor # Chronic kidney disease stage V, present of the time admission. Active - Creatinine at admission is 4.38 which appears to be an approximate baseline when compared to prior hospitalization in December 23, 2016 to December 29, 2016 - Review of records indicate a baseline creatinine of 1.4-1.5 at approximately 5 years ago - At prior hospitalization chronic kidney disease was thought to be due to chronic NSAID use as Patient described chronic use of Naproxen every 4 hours for the last several years to treat chronic arthritis and gout joint pain - Prior CT imaging (impression included above) at the time of hospitalization on December 23, 2016 described thickening of the bladder wall and distal bilateral hydroureter making chronic kidney disease due to urinary obstruction a possibility given worsening hydronephrosis seen on ultrasound today - Calcium acetate 667 mg 3 times a day for phosphate binding - Patient was previously started on oral sodium bicarbonate likely by patient's institutional asset manager , this may be restarted in the a.m. - Nephrology consultation placed as next Gen. records indicate a new patient appointment scheduled with Dr. Chowdary of nephrology on 03/16/2017, likely to discuss possible need for dialysis in the future. The patient was seen by Dr. Marin today and this time and expertise. # Anemia secondary to chronic kidney disease - Previously diagnosed as secondary to chronic kidney disease with low TIBC and normal iron and ferritin - Nephrology consulted and we appreciate their recommendations, patient was previously given a one time dose of darbepoetin # Chronic hyperparathyroidism - Secondary to chronic kidney disease noted on last admission - initiate PhosLo 3 times a day - Encourage vitamin D supplementation # Chronic interstitial nephritis - UA shows small amount of occult blood with 3-10 RBCs - likely will need baseline protein creatinine ratio however ongoing UTI with increased WBC and bacteria is unlikely to give fair baseline assessment - Nephrology consulted and we appreciate to recommendations Disposition patient will be changed from observation to inpatient will require more than 2 midnights for evaluation and treatment of the above conditions. GI Prophylaxis: Not indicated VTE Prophylaxis: Sub-Q Heparin (Unfractionated), SCDs VTE Mechanical Devices: Intermittant Pneumatic CD Resuscitation Status: CPR: Attempt Resuscitation AmparoDl MD Feb 27, 2017 22:15
[2017-02-28] VITALS (12 sets, daily range): BP systolic 101–215; BP diastolic 46–102; PULSE 55–81; RESP 16–20; O2SAT 94–100
[2017-02-28] MEDS: Heparin 5,000 Unit/mL Inj SUBQ SCH ×3 (01:06→18:16)
--- NOTE | 2017-02-28 03:54 | NUR ---
Activity Pt. slept throughout most of the night. Pt. was still forgetful during assessment, however was easily reoriented. Will continue to monitor.
[2017-02-28] MEDS ORDERED: MetoCLOpramide 5 mg/mL 2 mL Inj ONE (07:42)
[2017-02-28] MEDS ORDERED: Propofol 10,000 mCg/mL 20 mL Inj ONE (07:42)
--- NOTE | 2017-02-28 08:27 | PROG NOTE ---
[address] [address] PROGRESS NOTE PATIENT: RAMON NEWMAN : 1945 MR#: [id number] ADMIT: 02/25/2017 JOB ID: [id number] DATE: 02/28/2017 SUBJECTIVE: Bilateral hydronephrosis, renal failure, urinary tract infection. OBJECTIVE: Creatinine remains stable at 4.24. She feels well. Her appetite is good. ASSESSMENT AND PLAN: As discussed in my previous note, after adequate antibiotic coverage will now proceed with stent placement. This will be performed today under anesthetic in the OR.
--- NOTE | 2017-02-28 09:00 | NUR ---
Social Work: Initial Assessment D: EMR reviewed. Pt is 71 y/o female admitted (changed from [place]m to [place] on 02/26) for UTI, hydronephrosis per H&P. SW met with pt at bedside to conduct initial assessment. Pt was alert and oriented x3. SW explained role and wrote phone number on white board. Pt's insurance is [employer] of [employer] and Medicare. PCP is Livier Irving MD. SW confirmed pt has completed DPOA/advanced directive ppw and encouraged pt to provide a copy to the hospital. Pt gave verbal consent to contact spouse/DPOA Viraj Gonzalez ([phone]) for discharge planning. Pt has no hx of HH. [place] [facility] [place] [facility]. Pt does not have LTC insurance or VA benefits. Pt's spouse assists with feeding, chores, medications, transportation, and bills/finances. Pt states she does not need assistance with toileting or dressing. Pt does not use any DME at this time but states she is purchasing a cane to feel a little but more steady on her feet when ambulating. Pt states she ambulates independently at this time but would like a cane for extra support. Pt does not drive. Pt ambulates independently at baseline but uses assistance from her spouse with some ADLs including feeding, chores, medications, transportation, and bills/finances. Pt lives with her spouse in a single-story home with 1 step to enter in [place]. Pt states her spouse will provide transport home via POV when pt is medically stable. Per MD in AM multi-disciplinary rounds, REY anticipates pt will need HH RN and Bath Aide at discharge. A: Pt ambulates independently at baseline but uses assistance from her spouse with some ADLs including feeding, chores, medications, transportation, and bills/finances. Per MD, REY anticipates pt will need HH RN and Bath Aide at discharge. P: stated that HH RN and bath aide 3x/week is medically necessary. REY requested MD order in AM rounds. SW to await MD order and then provide pt HH choicelist. SW will continue to follow. LIZY Barragan Addendum: 02/28/17 at 1246 by ARACELI MAY SS Amended: Links added.
--- NOTE | 2017-02-28 09:58 | PCM.PNMED ---
Subjective Date of Service Feb 28, 2017 Subjective Dear treatment team, Thank you for caring for this patient. I would like to make a few corrections on the admission note. 1. This patient was referred to Dr. Irving, nephrology, by the primary care office. Dr Irving saw this patient on 02/23 a.m. and made the arrangement for the urgent renal ultrasound study, which now gives us the strongest clue about the possible cause of this patient's kidney failure. Dr Irving's consultation note is pasted here. (Dr Irving has not had the chance to review and correct his notes. So, if there is any typo or question, please call me. [phone].) 2. I was called on 02/25 pm by the cardiology technologist about the finding of bilateral hydronephrosis. (Dr Irving is out of the office since 02/24.) I advised the US technologist send the patient to ER to be evaluated. Neither the hospitalist team nor the ER provider contacted me about their assessment and treatment plan. I found out this patient's admission this am as I am following up, and arrange an outpatient follow up visit. 3. It is unusual for a woman to have bladder outlet obstruction, which could be either urinary bladder or gynecological pathology. Depending on how much renal cortex is preserved, this patient may eventually need chronic dialysis or not. It is my opinion that a newly diagnosed obstructive nephropathy is best to have the blockage relieved; hopefully, there will be at least some improvement of renal function to avoid chronic dialysis. 4. Thank you for treating her urinary infection. 5. I suggest that it is the patient's best interest to follow up with Dr Irving post discharge. MARIA TERESA Moya MD-PhD [facility] Appointment Type: Initial Consultation Location of Service: [place] Reason for Visit: CKD V Referring Physician: Dinesh Madera - Primary Care Physician: Maximiliano Nagel - Comments: KT Chief Complaint: CKD V: hospitalized with KEY from 12/23/16-12/30/16, secondary to NSAID use combined with active UTI/antibiotics. On admit, Cre/GFR were 5.9/10 and on discharge, Cre/GFR 4.1/15. Now on 02/14/17, there is no improvement in renal function with Cre/GFR at 4.2/10. In March 2015, Cre/GFR 2.7/25. This is likely progression of CKD. History of Present Illness: Mrs. Gonzalez is a 71-year-old, female who is referred by Dr. Dinesh Madera for stage V CKD, as above. Positives: hx nephrolithiasis, recurrent cystitis, urinary incontinence, anemia , remote hx ETOH abuse, proteinuria, hematuria, gout and hx chronic NSAID use ( now stopped). Negatives: DM and HTN. Family hx unknown. No renal imaging provided. Past Medical History: Anemia Anxiety Arthritis Asthma CKD: w/KEY in December 2016 2/2 NSAID use and UTI. Depression Gout Nephrolithiasis Dementia. Pneumonia. Recurrent cystitis. Urinary incontinence. Hyperphosphatemia. Personal and Social History: Marital Status: Occupation: Retired Lives with: her . Alcohol: currently uses alcohol, Hx ETOH abuse, sober for > 20 years. Tobacco: Never Smoker Drug Use: patient does not use drugs. Allergies Peanut-containing Drug Products, Peanuts, Penicillins, Sulfa Antibiotics Current Medications Last Fill Date Stop Date Ascorbic Acid Oral Tablet 500 MG one tablet by mouth daily Ferrous Sulfate Oral Tablet Delayed Release 325 (65 Fe) MG one tablet by mouth daily Vitamin D3 Oral Tablet 5000 UNIT one tablet by mouth daily Medication Review:Medications have been reviewed with the patient. Allergy Review:Allergies have been reviewed with the patient. Review of Systems Constitutional: No fever, GI: No abdominal pain. : No dysuria or gross hematuria. Neurologic: bit forgetful Vitals Height: 5'5 Weight: 198.2 lbs BMI: 33 BP 1: 102/58, Sitting, Left, MAP: 72.7 Pulse: 60, Radial, Left Physical Exam Cardiovascular: RRR, normal S1, S2 Respiratory: Clear bilaterally Abdominal: Soft, non-tender, Extremities: No peripheral edema Lab Review Labs have been reviewed with patient: 03/13/2015 BUN/Cr 26/2.7, eGFR 25, UA: large blood, 30 protein 12/23/2016 BUN/ Cr 58/5.9, eGFR 10, UA: moderate blood, >300 protein 12/24/2016 BUN/Cr 56/6.0, eGFR 10 12/29/2016 BUN/Cr 25/4.1, eGFR 15 02/14/2017 BUN/Cr 43/4.2, eGFR 10, Na 141, K 4.9, CO2 16, Ca 8.6, PO4 5.5, Hgb 11.1 Assessment: 03/13/2015 BUN/Cr 26/2.7, eGFR 25, UA: large blood, 30 protein 12/23/2016 BUN/ Cr 58/5.9, eGFR 10, UA: moderate blood, >300 protein 12/24/2016 BUN/Cr 56/6.0, eGFR 10 12/29/2016 BUN/Cr 25/4.1, eGFR 15 02/14/2017 BUN/Cr 43/4.2, eGFR 10, Na 141, K 4.9, CO2 16, Ca 8.6, PO4 5.5, Hgb 11.1 Problems: 1) Chronic kidney disease stage 5: Her baseline XCr is about 2.7 from 2014 She was recently admitted to [facility] with KEY on CKD with peak Cr of about 5.9. Her KEY was felt to be from volume depletion/interstitial nephritis from ongoing nsaid use and possibly UTI. Her Cr on discharged was 4.1 and now is about 4.2. There likely is progression of her kidney disease and this likely is now her residual kidney function with eGFR of 10-11 She is not acutely uremic, but is acidotic though. I will start her on po sodium bicarbonate. I spent an extended amount of time discussing dialysis with the and patient and they would like to think about it and get back to me. She is somewhat forgetful and dependent on her but is self ambulatory and if she wishes to i would consider dialysis in her case Overall her CKD is likely from Interstitial Nephritis from ocean transportation intermediary nsaid use. Oddly enough she still is taking aleeve daily. She tells me no one informed her to stop it after discharge. I have informed her to avoid all aleeve, advil, motrin, ibuprofen use. I will obtain basic CKD labs and renal sonogram as well 2) Anemia in chronic kidney disease: Hb improved to 11 Will monitor and check tsat 3) Renal osteodystrophy: Check PTH 4) meterman (current) use of non-steroidal anti-inflammatories (NSAID): Oddly enough she still is taking aleeve daily. She tells me no one informed her to stop it after discharge. I have informed her to avoid all aleeve, advil, motrin, ibuprofen use. Advised her use extra strength tylenol She can also try some turmeric as its anti inflammatory. However if she notices any bleeding or bruising she should stop it 5) Gout: Hx of Not on any gout medications 6) Dietary counseling and surveillance: Low Na diet 7) Metabolic acidosis: Start Nahco3 1300mg po bid Plan: 1. Start Nahco3 1300mg po bid 2. Stop all nsaid use 3. Renal Sonogram 4. Followup week of March (bmp, h/h, tsat, uPr/Cr, pth) Return To Clinic: I have asked Lisa to see me back in 2 weeks for a(n) Follow Up appointment. Transition of Care & Referrals: Send A Copy To Other Providers Exam Vital Signs Vital Sign - Last Date Time Temp Pulse Resp B/P Pulse Ox O2 Delivery O2 Flow Rate FiO2 02/28/17 09:36 36.9 71 18 123/58 98 Room Air Intake and Output 02/27/17 02/27/17 02/28/17 Cumulative From/Thru 15:00 23:00 07:00 02/25/17 17:03 - 02/28/17 06:27 Intake Total 2050 ml 872 ml 5922 ml Output Total 850 ml 760 ml 4260 ml Balance 1200 ml 112 ml 1662 ml Intake Oral 360 ml 872 ml 3132 ml IV Total 1690 ml 2790 ml Output Urine Total 850 ml 760 ml 4260 ml # Bowel Movements 2 0 6 Lab and Diagnostics Result Diagram: 02/27/17 0556 02/28/17 0500 Microbiology Name: RAMON GONZALEZ Age/Sex: 71/F Attend Dr: Dl Christensen Acct: [id number] Unit: [id number] Status: ADM Jm Location: [facility] [place] 1011-1 Re02/25/17 Disch: Specimen: [id number] Collected: 02/25/17 Status: RES Req#: [id number] Received: 02/25/17 Source: RANDOM Sp Desc : HALEY Plummer Dr: Aeblardo Dickey MD Ordered: URINE CULT Procedure Result Verified Site Microbiology MARY CULT URINE Preliminary 02/26/17-828 PRELIMINARY ID GRAM NEGATIVE JEFFERSON ID AND SENS TO FOLLOW COLONY COUNT/QUANTITY >100,000 CFU/ml X-Rays, CTs and MRIs PATIENT NAME: RAMON GONZALEZ MR#: [id number] LOCATION: [facility] ORDERING PHYS: Livier Irving MD DATE OF SERVICE: 02/25/17 1530 PROCEDURE: US RENAL SONOGRAM INDICATIONS: CHRONIC KIDNEY DISEASE STAGE 5 TECHNIQUE: Real-time scanning was performed of the kidneys and bladder, with image documentation. COMPARISON: None. FINDINGS: Kidneys: Marked bilateral parenchymal atrophy and increased echogenicity consistent with known chronic renal dysfunction. Bilateral hydronephrosis and ureterectasis right greater than left with no obstructing lesions identified. No solid masses. Benign right renal cyst. Bladder: Pre-void bladder volume is 47 mL. Post-void residual is 50 mL. Pre- void images demonstrate no intraluminal masses or stones. On pre-void images, no ureteral jets are noted with color Doppler interrogation. (Of note, ureteral jets may not be detectable in up to 25% of cases due to insufficient differences in specific gravity between ureteral and bladder urine). Miscellaneous: No free pelvic fluid. IMPRESSION: 1. Bilateral hydronephrosis and ureterectasis without obstructing lesion identified. Findings discussed with Dr. Moya by the restorative aide at 4:20 pm on 02/25/2017. At his request the patient will proceed to the emergency department. 2. Bilateral chronic renal disease. Dictated by: Daniel Hunt M.D. on 02/25/2017 at 16:29 Approved by: Daniel Hunt M.D. on 02/25/2017 at 16:33 Additional Diagnostics US RENAL SONOGRAM IMPRESSION: 1. Bilateral hydronephrosis and ureterectasis without obstructing lesion identified. Findings discussed with Dr. Moya by the restorative aide at 4:20 pm on 02/25/2017. At his request the patient will proceed to the emergency department. 2. Bilateral chronic renal disease. Dictated by: Daniel Hunt M.D. on 02/25/2017 at 16:29 Approved by: Daniel Hunt M.D. on 02/25/2017 at 16:[address] PELVIS WITHOUT CONTRAST on 12/23/2016 IMPRESSION: 1. No right hip fracture is evident. If there remains high clinical concern for a subtle right hip fracture, please consider obtaining an MRI of the hip for better evaluation. 2. Mild to moderate degenerative changes and osteopenia of the imaged bony structures of the pelvis. 3. Prominent thickening of the urinary bladder wall with surrounding edema and corresponding distal bilateral hydroureter and periureteral edema is suspicious for an ascending urinary tract infection. An infiltrative/neoplastic process is felt to be less likely, but cannot be completely excluded. Please correlate clinically. Dictated by: Satya Mccarthy M.D. on 12/23/2016 at 15:17 Approved by: Satya Mccarthy M.D. on 12/23/2016 at 15:25 Assessment & Plan GI Prophylaxis: Not indicated VTE Prophylaxis: Sub-Q Heparin (Unfractionated), SCDs VTE Mechanical Devices: Intermittant Pneumatic CD Resuscitation Status: CPR: Attempt Resuscitation copies to: Trisha Chowdary MD; Livier Irving MD; Dinesh Madera MD; Maximiliano Nagel MD, Chia-Jen MD Feb 28, 2017 09:58 contamination, UA was sent for culture and is positive for greater than 100,000 gram-negative rods. - Prior hospitalization for urinary tract infection showed cultures positive for Escherichia coli with good sensitivities - The patient was started on Rocephin IV - Avoid nephrotoxic agents - Continue Rocephin 2 g IV daily # Acute on chronic bilateral hydronephrosis - Patient denies worsening back or flank pain or inability to empty bladder, patient describes chronic urinary incontinence - Prior CT imaging (impression included above) at the time of hospitalization on December 23, 2016 described thickening of the bladder wall and distal bilateral hydroureter making chronic kidney disease due to urinary obstruction a possibility given worsening hydronephrosis seen on ultrasound today - Urology was consulted and Dr. Diez saw the patient today. Awaiting his recommendations. - Given likely need for ureteral stenting/decompression antibiotics will be continued in the postoperative period and a sterile environment for future ureteral stent placement # Hyperkalemia, present at the time of admission. Active - Potassium at admission is 5.8, likely elevated secondary to chronic kidney disease - Kayexalate one time dose given at admission - Monitor # Chronic kidney disease stage V, present of the time admission. Active - Creatinine at admission is 4.38 which appears to be an approximate baseline when compared to prior hospitalization in December 23, 2016 to December 29, 2016 - Review of records indicate a baseline creatinine of 1.4-1.5 at approximately 5 years ago - At prior hospitalization chronic kidney disease was thought to be due to chronic NSAID use as Patient described chronic use of Naproxen every 4 hours for the last several years to treat chronic arthritis and gout joint pain - Prior CT imaging (impression included above) at the time of hospitalization on December 23, 2016 described thickening of the bladder wall and distal bilateral hydroureter making chronic kidney disease due to urinary obstruction a possibility given worsening hydronephrosis seen on ultrasound today - Calcium acetate 667 mg 3 times a day for phosphate binding - Patient was previously started on oral sodium bicarbonate likely by patient's operations management professionals , this may be restarted in the a.m. - Nephrology consultation placed as next Gen. records indicate a new patient appointment scheduled with Dr. Chowdary of nephrology on 03/16/2017, likely to discuss possible need for dialysis in the future. The patient was seen by Dr. Marin today and this time and expertise. # Anemia secondary to chronic kidney disease - Previously diagnosed as secondary to chronic kidney disease with low TIBC and normal iron and ferritin - Nephrology consulted and we appreciate their recommendations, patient was previously given a one time dose of darbepoetin # Chronic hyperparathyroidism - Secondary to chronic kidney disease noted on last admission - initiate PhosLo 3 times a day - Encourage vitamin D supplementation # Chronic interstitial nephritis - UA shows small amount of occult blood with 3-10 RBCs - likely will need baseline protein creatinine ratio however ongoing UTI with increased WBC and bacteria is unlikely to give fair baseline assessment - Nephrology consulted and we appreciate to recommendations Disposition patient will be changed from observation to inpatient will require more than 2 midnights for evaluation and treatment of the above conditions. GI Prophylaxis: Not indicated VTE Prophylaxis: Sub-Q Heparin (Unfractionated), SCDs VTE Mechanical Devices: Intermittant Pneumatic CD Resuscitation Status: CPR: Attempt Resuscitation Gigi Moya MD Feb 28, 2017 09:58
--- NOTE | 2017-02-28 11:18 | NUR ---
NUTRITION ASSESSMENT Assess: 71 YO F admitted for UTI, bilateral hydronephrosis. Pt currently NPO but previously had good PO intake on Soft diet. PMHX: Asthma, gout, CKD stg IV, hx ETOH, Alzheimer's dementia. DIET: NPO. Previous PO intake on soft diet: 100%. LABS: BUN 40, Cr 4.24, (02/27): Alb 2.8 MEDICATIONS: Reviewed. GI: 2 BM 02/27. SKIN: No issues noted. ANTHROPOMETRICS: Wt: 89.4 kg, BMI 32.8 kg/m2, Admit wt: 89.4 kg. IBW: 56.8 kg. ESTIMATED NEEDS: BMI Calories: 0259-9981 kcal/day (20-22 kcal/kg BW) Protein: 68-85 g/day (1.2-1.5 g/kg IBW) NUTRITION DIAGNOSIS: 1) Inadequate oral intake related to decreased ability to consume sufficient energy as evidenced by NPO status. INTERVENTION: 1) Will await timely advancement of diet. MONITOR/EVALUATE: Diet advance, NPO status, labs, GI/nutrition status. Follow per moderate nutrition risk guidelines.
--- NOTE | 2017-02-28 11:21 | PCM.PNNEPH ---
Subjective Date of Service Feb 28, 2017 Subjective Patient is being nothing by mouth for bilateral ureteral stent placement today. She reports no history of fever or chills abdominal pain nausea vomiting. Her kidney function is relatively stable. She has good urine output. Exam Vital Signs Vital Sign - Last Date Time Temp Pulse Resp B/P Pulse Ox O2 Delivery O2 Flow Rate FiO2 02/28/17 09:36 36.9 71 18 123/58 98 Room Air Intake and Output 02/27/17 02/27/17 02/28/17 Cumulative From/Thru 15:00 23:00 07:00 02/25/17 17:03 - 02/28/17 06:27 Intake Total 2050 ml 872 ml 5922 ml Output Total 850 ml 760 ml 4260 ml Balance 1200 ml 112 ml 1662 ml Intake Oral 360 ml 872 ml 3132 ml IV Total 1690 ml 2790 ml Output Urine Total 850 ml 760 ml 4260 ml # Bowel Movements 2 0 6 Exam GENERAL: The patient in no apparent distress, and alert and oriented x3. VITAL SIGNS: as documented HEENT: Head is normocephalic and atraumatic. Extraocular muscles are intact. Pupils are equal, round, and reactive to light and accommodation. NECK: Supple, no elevation of JVD, No carotid bruits. No lymphadenopathy or thyromegaly. LUNGS: Clear to auscultation, equal breath sounds bilaterally, no wheezing, no rhonchi no rales. HEART: Normal S1/S2, Regular rate and rhythm, no murmurs, rubs or gallops. 2+ pules throughout. ABDOMEN: Soft, nontender, and nondistended. Positive bowel sounds. No hepatosplenomegaly was noted. EXTREMITIES: Without any cyanosis, clubbing, rash, lesions or edema. NEUROLOGIC: The patient is oriented to person, place and time. Strength and sensation are grossly intact. : Barakat catheter in place with good urine output. Lab and Diagnostics Result Diagram: 02/27/17 0556 02/28/17 0500 Microbiology Name: RAMON NEWMAN Age/Sex: 71/F Attend Dr: Dl Christensen Acct: [id number] Unit: [id number] Status: ADM Jm Location: [facility] [place] 1011-1 Re02/25/17 Disch: Specimen: [id number] Collected: 02/25/17 Status: RES Req#: [id number] Received: 02/25/17 Source: RANDOM Sp Desc : HALEY Plummer Dr: Abelardo Dickey MD Ordered: URINE CULT Procedure Result Verified Site Microbiology MARY CULT URINE Preliminary 02/26/17 PRELIMINARY ID GRAM NEGATIVE JEFFERSON ID AND SENS TO FOLLOW COLONY COUNT/QUANTITY >100,000 CFU/ml X-Rays, CTs and MRIs PATIENT NAME: RAMON NEWMAN MR#: [id number] LOCATION: [facility] ORDERING PHYS: Livier Irving MD DATE OF SERVICE: 02/25/17 1530 PROCEDURE: US RENAL SONOGRAM INDICATIONS: CHRONIC KIDNEY DISEASE STAGE 5 TECHNIQUE: Real-time scanning was performed of the kidneys and bladder, with image documentation. COMPARISON: None. FINDINGS: Kidneys: Marked bilateral parenchymal atrophy and increased echogenicity consistent with known chronic renal dysfunction. Bilateral hydronephrosis and ureterectasis right greater than left with no obstructing lesions identified. No solid masses. Benign right renal cyst. Bladder: Pre-void bladder volume is 47 mL. Post-void residual is 50 mL. Pre- void images demonstrate no intraluminal masses or stones. On pre-void images, no ureteral jets are noted with color Doppler interrogation. (Of note, ureteral jets may not be detectable in up to 25% of cases due to insufficient differences in specific gravity between ureteral and bladder urine). Miscellaneous: No free pelvic fluid. IMPRESSION: 1. Bilateral hydronephrosis and ureterectasis without obstructing lesion identified. Findings discussed with Dr. Moya by the cloth hauler at 4:20 pm on 02/25/2017. At his request the patient will proceed to the emergency department. 2. Bilateral chronic renal disease. Dictated by: Daniel Hunt M.D. on 02/25/2017 at 16:29 Approved by: Daniel Hunt M.D. on 02/25/2017 at 16:33 Additional Diagnostics US RENAL SONOGRAM IMPRESSION: 1. Bilateral hydronephrosis and ureterectasis without obstructing lesion identified. Findings discussed with Dr. Moya by the cloth hauler at 4:20 pm on 02/25/2017. At his request the patient will proceed to the emergency department. 2. Bilateral chronic renal disease. Dictated by: Daniel Hunt M.D. on 02/25/2017 at 16:29 Approved by: Daniel Hunt M.D. on 02/25/2017 at 16:[address] PELVIS WITHOUT CONTRAST on 12/23/2016 IMPRESSION: 1. No right hip fracture is evident. If there remains high clinical concern for a subtle right hip fracture, please consider obtaining an MRI of the hip for better evaluation. 2. Mild to moderate degenerative changes and osteopenia of the imaged bony structures of the pelvis. 3. Prominent thickening of the urinary bladder wall with surrounding edema and corresponding distal bilateral hydroureter and periureteral edema is suspicious for an ascending urinary tract infection. An infiltrative/neoplastic process is felt to be less likely, but cannot be completely excluded. Please correlate clinically. Dictated by: Satya Mccarthy M.D. on 12/23/2016 at 15:17 Approved by: Satya Mccarthy M.D. on 12/23/2016 at 15:25 Plan Impression 1. Acute kidney injury on chronic kidney disease. - Patient with underlying disease of chronic urinary incontinence. This condition may aggravate recurrent urinary tract infections leading to thickening of the bladder wall and possible bilateral ureteral swelling in which can cause a new onset bilateral hydroureter and hydronephrosis. - However given her age, neoplastic process should be ruled out. - Agreed with the urology to proceed with bilateral ureteral stent placement, ? ureteral biopsy. - Continue IV antibiotics for Escherichia coli UTI. - Renally dose medications, avoid nephrotoxins. - After procedure, will start a bladder training and check postvoid residual later on. - No urgent dialysis indicated at this moment. - If patient is ready to be discharged, she will follow up with her primary web database developer. 2. Chronic kidney disease, stage V, secondary to chronic NSAID use - Avoid nephrotoxins. - No urgent dialysis indicated at this moment. - If patient is ready to be discharged, she will follow up with her primary web database developer. 3. And gap metabolic acidosis - Continue sodium bicarbonate. 4. Anemia of chronic kidney disease. - Will order iron panel, ferritin, folic acid, vitamin B12, reticulocyte count, occult blood. 5. Secondary hyperparathyroidism. - Continue PhosLo. PTH is within range in the setting of stage 5 chronic kidney disease. Ananthapanyasut,Wanwarat MD Feb 28, 2017 11:21 patient describes chronic urinary incontinence - Prior CT imaging (impression included above) at the time of hospitalization on December 23, 2016 described thickening of the bladder wall and distal bilateral hydroureter making chronic kidney disease due to urinary obstruction a possibility given worsening hydronephrosis seen on ultrasound today - Urology was consulted and Dr. Diez saw the patient today. Awaiting his recommendations. - Given likely need for ureteral stenting/decompression antibiotics will be continued in the postoperative period and a sterile environment for future ureteral stent placement # Hyperkalemia, present at the time of admission. Active - Potassium at admission is 5.8, likely elevated secondary to chronic kidney disease - Kayexalate one time dose given at admission - Monitor # Chronic kidney disease stage V, present of the time admission. Active - Creatinine at admission is 4.38 which appears to be an approximate baseline when compared to prior hospitalization in December 23, 2016 to December 29, 2016 - Review of records indicate a baseline creatinine of 1.4-1.5 at approximately 5 years ago - At prior hospitalization chronic kidney disease was thought to be due to chronic NSAID use as Patient described chronic use of Naproxen every 4 hours for the last several years to treat chronic arthritis and gout joint pain - Prior CT imaging (impression included above) at the time of hospitalization on December 23, 2016 described thickening of the bladder wall and distal bilateral hydroureter making chronic kidney disease due to urinary obstruction a possibility given worsening hydronephrosis seen on ultrasound today - Calcium acetate 667 mg 3 times a day for phosphate binding - Patient was previously started on oral sodium bicarbonate likely by patient's web database developer , this may be restarted in the a.m. - Nephrology consultation placed as next Gen. records indicate a new patient appointment scheduled with Dr. Chowdary of nephrology on 03/16/2017, likely to discuss possible need for dialysis in the future. The patient was seen by Dr. Marin today and this time and expertise. # Anemia secondary to chronic kidney disease - Previously diagnosed as secondary to chronic kidney disease with low TIBC and normal iron and ferritin - Nephrology consulted and we appreciate their recommendations, patient was previously given a one time dose of darbepoetin # Chronic hyperparathyroidism - Secondary to chronic kidney disease noted on last admission - initiate PhosLo 3 times a day - Encourage vitamin D supplementation # Chronic interstitial nephritis - UA shows small amount of occult blood with 3-10 RBCs - likely will need baseline protein creatinine ratio however ongoing UTI with increased WBC and bacteria is unlikely to give fair baseline assessment - Nephrology consulted and we appreciate to recommendations Disposition patient will be changed from observation to inpatient will require more than 2 midnights for evaluation and treatment of the above conditions. GI Prophylaxis: Not indicated VTE Prophylaxis: Sub-Q Heparin (Unfractionated), SCDs VTE Mechanical Devices: Intermittant Pneumatic CD Resuscitation Status: CPR: Attempt Resuscitation Trisha Chowdary MD Feb 28, 2017 11:21
--- NOTE | 2017-02-28 12:26 | PCM.HPANE ---
Patient Data Surgeon Admitting Provider:Dl Christensen MD Attending Provider:Dl Christensen MD Primary Care Physician:Livier Irving MD Other Provider: Reason for Visit Uti,Hydronephrosis Ht/WT & BMI Height (Feet): 5 Height (Inches): 5.00 Weight (Kilograms): 89.400 Body Mass Index 32.84 Allergies Coded Allergies: Penicillins (Verified Allergy, Intermediate, Nausea,Vomiting, 02/25/17) peanut (Verified Allergy, Intermediate, Nausea,Vomiting, 02/25/17) Past Anesthesia History Anesthesia History: Denies:: Anesthesia Reactions Diabetes History Hx Diabetes?: No MRSA MRSA: No Medications Hypertension Medication: No Home Meds Incl Beta Anthony: No Reported Medications Zinc Oxide (Desitin)60 Gm Cream..g.1 Applic TOP DAILY PRN SKIN BREAKDOWN #1 TUBE Ref 0 02/25/17 Multivitamin (Multi Vitamin Daily)1 Each Tablet1 Each PO DAILY 30 Days Ref 0 02/25/17 Sodium Bicarbonate 650 Mg Tablet1,300 Mg PO BID 02/25/17 Discontinued Scripts Ascorbic Acid (Vitamin C)500 Mg Capsule.er500 Mg PO DAILY #30 TABLET Prov:NolascoStefania DO 12/30/16 Nystatin/Triamcin (Nystatin-Triamcinolone Cream)15 Gm Cream..g.15 Gm TP DAILY # 2 BOTTLE Prov:NolascoStefania James 12/29/16 Cholecalciferol (Vitamin D3) (Vitamin D3)5,000 Unit Capsule5,000 Unit PO DAILY # 60 CAPSULE Prov:Stefania Nolasco DO 12/29/16 Ferrous Sulfate 325 Mg [id number] Mg PO BID #30 TABLET Ref 0 Prov:NolascoStefania S 12/29/16 History History of ENT Problems?: No HEENT History: Positive for:: Sinus Problem Denies:: Cataracts Dysphagia Glaucoma Denture Type: None Teeth Condition: Within Normal Limits Other HEENT Pertinent History: asthma Hx of Heart Problems?: No Cardiovascular History: Positive for:: Irregular Heartbeat Denies:: Cardiac Surgery Chest Pain Congestive Heart Failure Edema Heart Murmur Hypertension Pacemaker Thrombophlebitis Hx of Respiratory Problem?: Yes Respiratory History: Positive for:: Asthma Denies:: COPD Chest Surgery Dyspnea Emphysema Hemoptysis Pneumonia Tuberculosis Hx Neurologic Problems?: No Neurological History: Denies:: Alzheimer's Disease CVA Dementia Dizziness Headaches Parkinson's Disease Seizures Hx of GI Problems?: Yes Hx of Problems?: Yes Genitourinary History: Positive for:: Urinary Tract Infection (recurrent) Denies:: HX of Hemodialysis Kidney Stones HX of Peritoneal Dialysis: No Female Hx: Denies:: Currently Endometriosis Pelvic Inflammatory Problems with Breasts? Hx Musculoskeletal Problems?: Yes Musculoskeletal History: Denies:: Back Injury Joint Replacement Musculoskeletal Trauma Hx of Psycho/Social Problems?: No Psycho Social History: Positive for:: Hx Depression (several years ago) Denies:: Anxiety Bipolar Disorder Suicide Attempt Hx Surgeries?: Yes (gallbladder) Hx Any Other Health Problems?: No Other History: Positive for:: Hospitalization Denies:: Cancer Thyroid Disease History Blood Transfusions: Positive for:: Accept Blood Products? Blood Transfusions Denies:: Blood Transfuse Reaction Hx Diabetes: No Occupation: retired Hx Alcohol Use: NoHx Substance Use: No Smoking Status: Never Smoker Have You Smoked inLast 12 mo: No Stop/Bang Treated for Sleep Apnea?: No Do You Have a CPAP Machine?: No ADRIAN Risk Assessment: Low Risk, <3 Yes Risk Assessment Category Category 1A: Patient has history of documented sleep apnea, and HAS NOT received any narcotic, sedative or anesthesia administration during this stay. Category 1B: Patient has history of documented sleep apnea, and HAS received any narcotic , sedative or anesthesia administration during this stay Category 2: Patient has SUSPECTED Obstructive Sleep Apnea, and HAS received any narcotic , sedative or anesthesia administration during this stay. Category 3: Patient has SUSPECTED Obstructive Sleep Apnea and HAS NOT received narcotic, sedative or anesthesia administration during this stay. Category 4: Outpatient in Procedural Areas with known sleep apnea or who screen positive for High Risk via the STOP/BANG questionnaire. Exam Exam Vital Signs Vital Signs Date Time Temp Pulse Resp B/P Pulse Ox O2 Delivery O2 Flow Rate FiO2 02/28/17 09:36 36.9 71 18 123/58 98 Room Air 02/28/17 04:49 36.4 61 16 123/65 99 Room Air General Appearance: Oriented X3 HEENT/AIRWAY: MP 2 Lungs: Normal Air Movement Heart: Regular Rate/Rhythm Meds/Labs/Diagnostics Admission Meds Current Medications Sodium Chloride (1/2 Normal Saline) 1,000 ml @ 50 mls/hr Q20H IV Last administered on 02/28/17t 11:02; Start 02/27/17 at 12:35 Labs Test 02/25/17 19:20 02/25/17 20:03 02/25/17 21:55 02/27/17 05:56 Lipase 58U/L (13-60) Parathyroid Hormone (Intact) 173pg/mL (15-65) Urine Color Yellow (YELLOW) Urine Appearance Turbid (CLEAR,HAZY) Urine pH 5.5 (5.0-8.0) Urine Specific [place] 1.015 (1.003-1.035) Urine Protein 100mg/dL (NEG,TRACE) Urine Glucose (UA) Negativemg/dL (NEGATIVE) Urine Ketones Negativemg/dL (NEGATIVE) Urine Occult Blood Small (NEGATIVE) Urine Nitrite Positive (NEGATIVE) Urine Bilirubin Negative (NEGATIVE) Urine Urobilinogen Normalmg/dL (NORMAL) Urine Leukocyte Esterase Large (NEGATIVE) Urine RBC 3-10/hpf (0-2) Urine WBC >50/hpf (0-5) Urine Epithelial Cells Moderate/hpf (NONE-MOD) Urine Crystals None seen (NONE SEEN) Urine Bacteria Moderate/hpf (NONE-FEW) Urine Hyaline Casts None/lpf (NONE) Urine Granular Casts None seen (NONE SEEN) Urine Waxy Casts None seen (NONE SEEN) Urine Red Blood Cell Casts None seen (NONE SEEN) Urine White Blood Cell Casts None seen (NONE SEEN) Urine Mucus None seen (None Seen) Urine Trichomonas None seen (NONE SEEN) Urine Yeast None (NONE SEEN) Urinalysis Comment None Urine Culture Reflexed Indicated Lactic Acid Level 0.6mmol/L (0.4-2.0) White Blood Count 4.9th/mm3 (3.8-10.1) Red Blood Count 3.31mil/mm3 (3.90-5.20) Hemoglobin 9.6g/dL (12.0-15.6) Hematocrit 32.2% (35.0-46.0) Mean Corpuscular Volume 97.3fL (81-100) Mean Corpuscular Hemoglobin 29.0pg (27.0-35.0) Mean Corpuscular Hemoglobin Concent 29.8% (32.0-37.0) Red Cell Distribution Width 12.9% (12.3-15.4) Platelet Count 241bil/L (150-400) Neutrophils (%) (Auto) 61.5% (40-74) Lymphocytes (%) (Auto) 20.7% (14-46) Monocytes (%) (Auto) 12.3% (4-12) Eosinophils (%) (Auto) 2.9% (0-5) Basophils (%) (Auto) 0.6% (0-3) Phosphorus Level 5.3mg/dL (2.5-4.9) Magnesium Level 2.0mg/dL (1.6-2.6) Total Bilirubin 0.2mg/dL (0.0-1.2) Aspartate Amino Transf (AST/SGOT) 15U/L (0-50) Alanine Aminotransferase (ALT/SGPT) 10U/L (0-32) Alkaline Phosphatase 80U/L (25-165) Total Protein 6.3g/dL (6.4-8.4) Albumin 2.8g/dL (3.4-5.0) Test 02/28/17 05:00 Sodium Level 140mEq/L (134-144) Potassium Level 4.6mEq/L (3.5-5.2) Chloride Level 107mEq/L (97-108) Carbon Dioxide Level 19mmol/L (18-29) Blood Urea Nitrogen 40mg/dL (8-27) Creatinine 4.24mg/dL (0.57-1.00) Estimat Glomerular Filtration Rate 15mL/min (>59) Glucose Level 84mg/dL (60-99) Calcium Level 8.8mg/dL (8.5-10.1) Plan Impression Patient chart reviewed, patient interviewed and anesthestic plan with risks, benefits, and alternatives discussed, and informed consent obtained. ASA Physical Status: ASA2 Mod Systemic Disease Anesthetic Plan: GA Bene/Risks/Altern/Consents: Yes HP Complete Prior to Induction: Yes Ky Ronquillo MD Feb 28, 2017 12:26
[2017-02-28] MEDS ORDERED: Lactated Ringer's 1,000 ML IV SCH (12:27)
[2017-02-28] MEDS ORDERED: Lactated Ringer's 500 ML IV PRN (12:27)
[2017-02-28] MEDS ORDERED: Dexamethasone 4 mg/mL Inj IVPUSH PRN (12:30)
[2017-02-28] MEDS ORDERED: MetoCLOpramide 5 mg/mL 2 mL Inj IVPUSH PRN (12:30)
[2017-02-28] MEDS ORDERED: HYDROmorphone 1 mg/mL Inj IVPUSH PRN (12:30)
[2017-02-28] MEDS ORDERED: fentaNYL-PF 50 mCg/mL 2 mL Inj IVPUSH PRN (12:30)
[2017-02-28] MEDS ORDERED: EPHEDrine Sulfate 50 mg/mL Inj IVPUSH PRN (12:30)
[2017-02-28] MEDS ORDERED: Ondansetron 2 mg/mL 2 mL Inj IVPUSH PRN (12:30)
[2017-02-28] MEDS ORDERED: Phenylephrine 10,000 mCg/mL Inj IVPUSH PRN (12:30)
[2017-02-28] MEDS ORDERED: Lactated Ringer's 1,000 ML IV ONE (12:31)
--- NOTE | 2017-02-28 14:40 | PCM.ANEP1 ---
Post Anesthesia PACU Phase 1 Assessment Vital Signs Vital Signs Date Time Temp Pulse Resp B/P Pulse Ox O2 Delivery O2 Flow Rate FiO2 02/28/17 14:12 36.3 65 20 198/88 99 Room Air 02/28/17 13:45 62 18 99 Room Air 02/28/17 13:30 36.2 63 16 167/75 99 Room Air 02/28/17 13:25 64 16 163/73 100 Room Air 02/28/17 13:20 64 18 148/46 100 Room Air 02/28/17 13:15 65 16 131/69 100 Simple Mask 8 02/28/17 13:10 55 17 112/61 100 Simple Mask 8 02/28/17 13:06 36.3 64 16 101/60 100 Simple Mask 8 02/28/17 09:36 36.9 71 18 123/58 98 Room Air Anesthetic Administered: GA, MAC Level of Alertness: Awake, talking GALLEGOS's with Equal Strength: Yes Pain: No Pain Scale Score: 8 Nausea or Vomiting: No CV Function & Hydration Stable: Yes Airway Device: Lungs: Normal Air Movement PACU Phase 2 Assessment Patient Instructions Provided: N/A Ky Ronquillo MD Feb 28, 2017 14:40
--- NOTE | 2017-02-28 15:10 | DRSVH ---
PROCEDURE: X-RAY RETROGRADE UROGRAPHY INDICATIONS: C-ARM ASSISTED STENT PLACEMENT TECHNIQUE: Multiple intraoperative fluoroscopic intra-operative images acquired by the Urology [facility]. COMPARISON: None. FINDINGS: Intraoperative fluoroscopic views demonstrate hydronephrosis and right ureteral stent plac ement. IMPRESSION: Right ureteral stent placement and hydronephrosis. Dictated by: Kavita Hernadez M.D. on 02/28/2017 at 15:08 Approved by: Kavita Hernadez M.D. on 02/28/2017 at 15:08
--- NOTE | 2017-02-28 15:11 | DRSVH ---
PROCEDURE: X-RAY RETROGRADE UROGRAPHY INDICATIONS: C-ARM ASSISTED STENT PLACEMENT TECHNIQUE: Multiple intraoperative fluoroscopic images acquired by the Urology service. COMPARISON: None. FINDINGS: Intraoperative fluoroscopic views demonstrate marked hydronephrosis and left ureteral sten t placement. IMPRESSION: Hydronephrosis and left ureteral stent placement. Dictated by: Kavita Hernadez M.D. on 02/28/2017 at 15:09 Approved by: Kavita Hernadez M.D. on 02/28/2017 at 15:09
--- NOTE | 2017-02-28 16:30 | NUR ---
Post op note- Patient returned from PACU after having bilateral ureteral STENT's placed. Patient awake and denies pain, other than being "hungry". Barakat cath draining bloody urine, which was placed in surgery and per post op report from RN. Tolerating diet and fluids. Tylenol given for back and shoulder pain that is ongoing for patient.
--- NOTE | 2017-02-28 20:34 | OP ---
[address] [address] OPERATIVE REPORT PATIENT: RAMON NEWMAN : 1945 MR#: [id number] ADMIT: 02/25/2017 JOB ID: [id number] DATE OF SURGERY: 02/28/2017 PREOPERATIVE DIAGNOSIS(ES): Bilateral hydronephrosis. POSTOPERATIVE DIAGNOSIS(ES): Bilateral hydronephrosis. PROCEDURE PERFORMED: 1. Cystoscopy and bilateral retrograde pyelograms. 2. Bilateral ureteral stent placement. 3. Pelvic exam. SURGEON: Alexandria Alvarez MD. TREATING MACHINE OPERATOR: None. ANESTHESIA: Monitored anesthesia care. ESTIMATED BLOOD LOSS: Less than 2 mL. DRAINS: Bilateral 6 x 24 double-J ureteral stents. SPECIMENS: None. COMPLICATIONS: None. INDICATIONS FOR PROCEDURE: The patient is a 71-year-old woman with chronic kidney disease. She was found on ultrasound to have bilateral hydronephrosis. She now presents for ureteral stent placement. DESCRIPTION OF THE PROCEDURE: After informed consent was obtained, the patient was taken to the operating room. A time-out was performed identifying correct patient, surgical site, and procedure. Monitored anesthesia care was smoothly induced. She was placed in the lithotomy position and all pressure points were identified and appropriately padded. Her genitals were then prepped and draped in the usual sterile fashion. A 22-Dutch rigid scope was applied to the patient's urethra and advanced into the bladder. The bladder was drained. The bladder was inspected. It appeared with atrophic appearing tissues consistent with the patient's age and postmenopausal state. The bladder was small in capacity and appeared trabeculated with +4 trabeculation, as well as cellules present along the posterior dome of the bladder. The right ureteral orifice was seen in orthotopic position. It was cannulated with a 5-Dutch open-ended Pollack catheter. Retrograde pyelogram was performed. The distal ureter appeared normal in caliber, though the mid and proximal ureter were dilated. There was severe hydronephrosis as well. Essentially, there was severe right hydroureteronephrosis down to the pelvic brim or distal ureter. A Sensor tip wire up into the right renal pelvis as seen under fluoroscopy. The Pollack was then backloaded off of the wire. A 6 x 24 double-J ureteral stent was loaded over the wire, navigated to the renal pelvis as seen under fluoroscopy. The wire was then removed, leaving a nice coil in the renal pelvis as seen under fluoroscopy. There was a nice coil in the bladder seen under direct vision. Attention was then turned to the left ureteral orifice. It was somewhat lateral in placement, though given the overall dysmorphic appearance of the bladder, it is unclear if this was orthotopic. However, it was round and open in appearance. It was cannulated. It was cannulated a 5-Dutch open-ended Pollack. Retrograde pyelogram was performed. Ureter overall appeared normal caliber, though at the proximal ureter, it was moderately distended and then left kidney did appear to be hydronephrotic to a moderate severe degree though much less hydronephrotic versus the right side. The Pollack was cannulated with a Sensor tip wire. It was navigated to the renal pelvis as seen under fluoroscopy. The Pollack was then removed and a 6 x 24 double-J ureteral stent was loaded over it and navigated to the renal pelvis as seen under fluoroscopy. The wire was then removed leaving a nice coil in the patient's bladder seen under direct vision. The bladder was drained. An 18-Dutch Barakat catheter was then placed in the patient's bladder and set to dependent drainage. A vaginal exam was performed. There were no masses or any lesions palpable. It should be noted that her genitourinary tissues were atrophic and discolored to a light pale pink versus the rest of her skin, which is cardenas in appearance. The patient was then taken to the PACU in good and stable condition. YING
[2017-02-28] MEDS: diphenhydrAMINE 25 mg Capsule PO PRN (21:27)
[2017-02-28] MEDS ORDERED: hydrALAZINE 20 mg/mL Inj IV ONE (22:15)
--- NOTE | 2017-02-28 22:51 | PCM.PNMED ---
Subjective Date of Service Feb 28, 2017 Subjective The patient remains pleasantly confused and forgetful. She was seen postoperatively and complains of some back and shoulder pain. She has no other new complaints. Exam Vital Signs Vital Sign - Last Date Time Temp Pulse Resp B/P Pulse Ox O2 Delivery O2 Flow Rate FiO2 02/28/17 21:51 203/101 02/28/17 19:52 36.2 81 18 94 Room Air 02/28/17 13:15 8 Intake and Output 02/27/17 02/27/17 02/28/17 Cumulative From/Thru 15:00 23:00 07:00 02/25/17 17:03 - 02/28/17 06:27 Intake Total 2050 ml 872 ml 5922 ml Output Total 850 ml 760 ml 4260 ml Balance 1200 ml 112 ml 1662 ml Intake Oral 360 ml 872 ml 3132 ml IV Total 1690 ml 2790 ml Output Urine Total 850 ml 760 ml 4260 ml # Bowel Movements 2 0 6 Exam General: The patient is lying supine in bed in no apparent distress. She is more awake and alert today. HEENT: Head is atraumatic and normocephalic. Eyes: Pupils are equally round and reactive to light and accommodation. Extraocular muscles are intact. Sclera are white, anicteric. Subconjunctival mucosa is pink. Ears and nose are unremarkable. Oropharynx: There is no mucosal lesions, there is no thrush, there is no pharyngitis. Neck: Is supple, there are no nodes, or masses or tenderness. Chest: Is clear to auscultation and percussion. There are no rales, rhonchi, wheezes or rubs. Heart: Rate, rhythm is regular. There is no murmur, rub or gallop. Abdomen: Good bowel sounds are present. Abdomen is soft, nontender, no organomegaly or masses were appreciated. Extremities: Are symmetrical and well perfused. There is no edema, there is no cellulitis, no rash. There is no significant ruber, calor or dolor of her right or left knee. There is no rubor, calor or door of her hands or feet. Neurologic: There are no focal neurological deficits. Cranial nerves II through XII are intact. There are no sensory or motor deficits. Patient remains pleasantly confused and forgetful. Psychiatric: Patients mood is calm and shows no sign of agitation. Genital: Deferred Rectal: Deferred Lab and Diagnostics Result Diagram: 02/27/17 0556 02/28/17 0500 Microbiology Name: RAMON NEWMAN Age/Sex: 71/F Attend Dr: Dl Christensen Acct: [id number] Unit: [id number] Status: ADM Jm Location: [facility] [place] 1011-1 Re02/25/17 Disch: Specimen: [id number] Collected: 02/25/17 Status: RES Req#: [id number] Received: 02/25/17 Source: RANDOM Sp Desc : PP Elian Dr: Abelardo Dickey MD Ordered: URINE CULT Procedure Result Verified Site Microbiology MARY CULT URINE Preliminary 02/26/17-828 PRELIMINARY ID GRAM NEGATIVE JEFFERSON ID AND SENS TO FOLLOW COLONY COUNT/QUANTITY >100,000 CFU/ml X-Rays, CTs and MRIs PATIENT NAME: RAMON NEWMAN MR#: [id number] LOCATION: [facility] ORDERING PHYS: Livier Irving MD DATE OF SERVICE: 02/25/17 1530 US RENAL SONOGRAM IMPRESSION: 1. Bilateral hydronephrosis and ureterectasis without obstructing lesion identified. Findings discussed with Dr. Moya by the employment recruiter at 4:20 pm on 02/25/2017. At his request the patient will proceed to the emergency department. 2. Bilateral chronic renal disease. Dictated by: Daniel Hunt M.D. on 02/25/2017 at 16:29 Approved by: Daniel Hunt M.D. on 02/25/2017 at 16:[address] PELVIS WITHOUT CONTRAST on 12/23/2016 IMPRESSION: 1. No right hip fracture is evident. If there remains high clinical concern for a subtle right hip fracture, please consider obtaining an MRI of the hip for better evaluation. 2. Mild to moderate degenerative changes and osteopenia of the imaged bony structures of the pelvis. 3. Prominent thickening of the urinary bladder wall with surrounding edema and corresponding distal bilateral hydroureter and periureteral edema is suspicious for an ascending urinary tract infection. An infiltrative/neoplastic process is felt to be less likely, but cannot be completely excluded. Please correlate clinically. Dictated by: Satya Mccarthy M.D. on 12/23/2016 at 15:17 Approved by: Satya Mccarthy M.D. on 12/23/2016 at 15:25 Additional Diagnostics DATE OF SURGERY: 02/28/2017 PREOPERATIVE DIAGNOSIS(ES): Bilateral hydronephrosis. POSTOPERATIVE DIAGNOSIS(ES): Bilateral hydronephrosis. PROCEDURE PERFORMED: 1. Cystoscopy and bilateral retrograde pyelograms. 2. Bilateral ureteral stent placement. 3. Pelvic exam. SURGEON: Alexandria Alvarez MD. Assessment & Plan The patient is a 71-year-old female with past medical history remarkable for recent diagnosis of stage IV chronic kidney disease with concomitant distal bilateral hydroureter seen on CT imaging who presents to the [facility] emergency Department after ultrasound imaging showed bilateral hydronephrosis. # Acute urinary tract infection - Patient denies complaints of urinary tract infection including dysuria, increased urgency or frequency - UA shows WBCs > 50, with large leukocyte esterase, and positive nitrites with moderate bacteria and moderate epithelial cells - Given the lack of symptoms this could be colonization with concomitant contamination, UA was sent for culture and is positive for greater than 100,000 gram-negative rods. - Prior hospitalization for urinary tract infection showed cultures positive for Escherichia coli with good sensitivities - The patient was started on Rocephin IV - Avoid nephrotoxic agents - Continue Rocephin 2 g IV daily # Acute on chronic bilateral hydronephrosis - Patient denies worsening back or flank pain or inability to empty bladder, patient describes chronic urinary incontinence - Prior CT imaging (impression included above) at the time of hospitalization on December 23, 2016 described thickening of the bladder wall and distal bilateral hydroureter making chronic kidney disease due to urinary obstruction a possibility given worsening hydronephrosis seen on ultrasound today - Urology was consulted and Dr. Diez saw the patient initially - Given likely need for ureteral stenting/decompression antibiotics will be continued in the postoperative period and a sterile environment for future ureteral stent placement - The patient was taken to surgery today by Dr. Alexandria Alvarez who performed the following: Cystoscopy and bilateral retrograde pyelograms, bilateral ureteral stent placement, and a pelvic exam. # Hyperkalemia, present at the time of admission. Active - Potassium at admission is 5.8, likely elevated secondary to chronic kidney disease - Kayexalate one time dose given at admission - We will continue to Monitor # Chronic kidney disease stage V, present of the time admission. Active - Creatinine at admission is 4.38 which appears to be an approximate baseline when compared to prior hospitalization in December 23, 2016 to December 29, 2016 - Review of records indicate a baseline creatinine of 1.4-1.5 at approximately 5 years ago - At prior hospitalization chronic kidney disease was thought to be due to chronic NSAID use as Patient described chronic use of Naproxen every 4 hours for the last several years to treat chronic arthritis and gout joint pain - Prior CT imaging (impression included above) at the time of hospitalization on December 23, 2016 described thickening of the bladder wall and distal bilateral hydroureter making chronic kidney disease due to urinary obstruction a possibility given worsening hydronephrosis seen on ultrasound today - Calcium acetate 667 mg 3 times a day for phosphate binding - Patient was previously started on oral sodium bicarbonate likely by patient's education administrator , this may be restarted in the a.m. - Nephrology consultation and follow-up appreciated. There are time and expertise appreciated. Dr. MARIA TERESA Arzola's note appreciated and patient will be following up with Dr. Everett after discharge # Anemia secondary to chronic kidney disease - Previously diagnosed as secondary to chronic kidney disease with low TIBC and normal iron and ferritin - Nephrology consulted and we appreciate their recommendations, patient was previously given a one time dose of darbepoetin # Chronic hyperparathyroidism - Secondary to chronic kidney disease noted on last admission - initiate PhosLo 3 times a day - Encourage vitamin D supplementation # Chronic interstitial nephritis - UA shows small amount of occult blood with 3-10 RBCs - likely will need baseline protein creatinine ratio however ongoing UTI with increased WBC and bacteria is unlikely to give fair baseline assessment - Nephrology consulted and we appreciate to recommendations Disposition: Urology will be back to evaluate the patient on Tuesday and will determine her second treatment after their visit. I spoke with Dr. Alexandria Alvarez today. Pain Evaluation: Adequate Pain Control GI Prophylaxis: Not indicated VTE Prophylaxis: Sub-Q Heparin (Unfractionated), SCDs VTE Mechanical Devices: Intermittant Pneumatic CD Resuscitation Status: CPR: Attempt Resuscitation Dl Christensne MD Feb 28, 2017 22:50
[2017-02-28] MEDS: cefTRIAXone Inj 2,000 MG in Dextrose 5% Minibag Plus 50 ML IV SCH (23:20)
[2017-03-01 00:55] VITALS: BP 169/81
[2017-03-01] MEDS: Heparin 5,000 Unit/mL Inj SUBQ SCH ×3 (01:25→16:30)
[2017-03-01 04:20] VITALS: BP 144/82; PULSE 89; RESP 16; O2SAT 97
[2017-03-01 05:59] LABS: BASOPHILS % (AUTO) 0.2 % (0-3); EOSINOPHILS % (AUTO) 0.2 % (0-5); MONOCYTES % (AUTO) 5.3 % (4-12); Mean Corpuscular Hemoglobin 30.1 pg (27.0-35.0); Mean Corpuscular Volume 95.4 fL (81-100); NEUTROPHILS % (AUTO) 88.7 % (40-74); Platelet Count 261 bil/L (150-400)
--- NOTE | 2017-03-01 06:02 | NUR ---
Barakat Patient continues to have pinkish red urine output in her Barakat. Patient A&OX3. Patient states she isn't having any pain throughout the night. Patient states she just needs to catch up on her sleep. Patient had BP of 215/102 early on in shift last night. Physician notified and one time orders for Hydrolazine and Amlodipine were given. Patients BP came down to 169/81 shortly after.
[2017-03-01 06:16] LABS: Magnesium 1.9 mg/dL (1.6-2.6); Unsaturated Iron Binding 203.4 ug/dL
--- NOTE | 2017-03-01 11:45 | PCM.PNNEPH ---
Subjective Date of Service Mar 01, 2017 Subjective Patient underwent cystoscopy, bilateral retrograde pyelogram and bilateral ureteral stent placement. The procedure was uneventful. She became hypertensive overnight. IV hydralazine was given because she was bradycardic. Amlodipine was initiated as well. Her serum creatinine trended. The current international units is 3.88. She was found to have pinkish urine but had became more clear. Exam Vital Signs Vital Sign - Last Date Time Temp Pulse Resp B/P Pulse Ox O2 Delivery O2 Flow Rate FiO2 03/01/17 04:20 36.5 89 16 144/82 97 Room Air 02/28/17 13:15 8 Intake and Output 02/28/17 02/28/17 03/01/17 Cumulative From/Thru 15:00 23:00 07:00 02/25/17 17:03 - 03/01/17 06:53 Intake Total 300 ml 516 ml 828 ml 7566 ml Output Total 750 ml 1400 ml 6410 ml Balance 300 ml -234 ml -572 ml 1156 ml Intake Oral 0 ml 200 ml 3332 ml IV Total 300 ml 516 ml 628 ml 4234 ml Output Urine Total 750 ml 1400 ml 6410 ml # Bowel Movements 0 6 Exam GENERAL: The patient in no apparent distress, she is demented, oriented 2 place and time. HEENT: Head is normocephalic and atraumatic. Extraocular muscles are intact. Pupils are equal, round, and reactive to light and accommodation. NECK: Supple, no elevation of JVD, No carotid bruits. No lymphadenopathy or thyromegaly. LUNGS: Clear to auscultation, equal breath sounds bilaterally, no wheezing, no rhonchi no rales. HEART: Normal S1/S2, Regular rate and rhythm, no murmurs, rubs or gallops. 2+ pules throughout. ABDOMEN: Soft, nontender, and nondistended. Positive bowel sounds. No hepatosplenomegaly was noted. EXTREMITIES: Without any cyanosis, clubbing, rash, lesions or edema. NEUROLOGIC: The patient is oriented to person, place and time. Strength and sensation are grossly intact. : Barakat catheter in place with pinkish urine. Lab and Diagnostics Result Diagram: 03/01/1751803/01/17 05 Microbiology Name: RAMON NEWMAN Age/Sex: 71/F Attend Dr: Dl Christensen Acct: [id number] Unit: [id number] Status: ADM Jm Location: [facility] [place] 1011-1 Re02/25/17 Disch: Specimen: [id number] Collected: 02/25/17 Status: RES Req#: [id number] Received: 02/25/17 Source: RANDOM Sp Desc : HALEY Plummer Dr: Abelardo Dickey MD Ordered: URINE CULT Procedure Result Verified Site Microbiology AMRY CULT URINE Preliminary 02/26/17 PRELIMINARY ID GRAM NEGATIVE JEFFERSON ID AND SENS TO FOLLOW COLONY COUNT/QUANTITY >100,000 CFU/ml X-Rays, CTs and MRIs PATIENT NAME: RAMON NEWMAN MR#: [id number] LOCATION: [facility] ORDERING PHYS: Livier Irving MD DATE OF SERVICE: 02/25/17 1530 US RENAL SONOGRAM IMPRESSION: 1. Bilateral hydronephrosis and ureterectasis without obstructing lesion identified. Findings discussed with Dr. Moya by the woodwork teacher at 4:20 pm on 02/25/2017. At his request the patient will proceed to the emergency department. 2. Bilateral chronic renal disease. Dictated by: Daniel Hunt M.D. on 02/25/2017 at 16:29 Approved by: Daniel Hunt M.D. on 02/25/2017 at 16:[address] PELVIS WITHOUT CONTRAST on 12/23/2016 IMPRESSION: 1. No right hip fracture is evident. If there remains high clinical concern for a subtle right hip fracture, please consider obtaining an MRI of the hip for better evaluation. 2. Mild to moderate degenerative changes and osteopenia of the imaged bony structures of the pelvis. 3. Prominent thickening of the urinary bladder wall with surrounding edema and corresponding distal bilateral hydroureter and periureteral edema is suspicious for an ascending urinary tract infection. An infiltrative/neoplastic process is felt to be less likely, but cannot be completely excluded. Please correlate clinically. Dictated by: Satya Mccarthy M.D. on 12/23/2016 at 15:17 Approved by: Satya Mccarthy M.D. on 12/23/2016 at 15:25 Additional Diagnostics DATE OF SURGERY: 02/28/2017 PREOPERATIVE DIAGNOSIS(ES): Bilateral hydronephrosis. POSTOPERATIVE DIAGNOSIS(ES): Bilateral hydronephrosis. PROCEDURE PERFORMED: 1. Cystoscopy and bilateral retrograde pyelograms. 2. Bilateral ureteral stent placement. 3. Pelvic exam. SURGEON: Alexandria Alvarez MD. Plan Impression 1. Acute kidney injury on chronic kidney disease. - Patient with underlying disease of chronic urinary incontinence. This condition may aggravate recurrent urinary tract infections leading to thickening of the bladder wall and possible bilateral ureteral swelling in which can cause a new onset bilateral hydroureter and hydronephrosis. - However given her age, neoplastic process should be ruled out. - Status post bilateral ureteral stent placement. - Kidney function has improved. - Continue IV antibiotics for Escherichia coli UTI. - Renally dose medications, avoid nephrotoxins. - Barakat catheter removal as per urology. 2. Chronic kidney disease, stage V, secondary to chronic NSAID use - Avoid nephrotoxins. - No urgent dialysis indicated at this moment. - If patient is ready to be discharged, she will follow up with her primary job captain. 3. And gap metabolic acidosis - Continue sodium bicarbonate. 4. Anemia of chronic kidney disease and iron deficiency anemia - Current hemoglobin is 11.6 - Continue to monitor - Once infection is cleared, we will consider receiving IV iron. - start FESO4 5. Secondary hyperparathyroidism. - Continue PhosLo. PTH is within range in the setting of stage 5 chronic kidney disease. 6. Hypertension Continue Norvasc 10 mg once a day, Coreg 6.25 mg twice a day Continue to monitor blood pressure and heart rate. Trisha Chowdary MD Mar 01, 2017 11:45
[2017-03-01 12:19] VITALS: BP 178/79; PULSE 85; RESP 16; O2SAT 97
--- NOTE | 2017-03-01 16:34 | NUR ---
Evaluation completed. Please go to "Notes" then click on "Assessments and Notes" (bottom left corner of screen). Then select appropriate discipline tab on top of screen.
--- NOTE | 2017-03-01 16:57 | PCM.PNSURG ---
Subjective Date of Service: Mar 01, 2017 Date of Service: Mar 01, 2017 Visit Information: Reason for Visit Uti,Hydronephrosis Surgery/Surgery Date BILAT STENT PLCMNT/CYSTOSCOPY 02/28/17 Post-Op Day #1 Date of Admission: Feb 25, 2017 at 21:47 Hospital Day # Subjective: Pt supine during exam, she has no complaints at this time. Objective Vital Sign- Last 8 Hours Date Time Temp Pulse Resp B/P Pulse Ox O2 Delivery O2 Flow Rate FiO2 03/01/17 12:19 37.1 85 16 178/79 97 Room Air Intake and Output- Last 8 Hour 03/01/17 Cumulative From/Thru 07:00 02/25/17 17:03 - 03/01/17 06:53 Intake Total 828 ml 7566 ml Output Total 1400 ml 6410 ml Balance -572 ml 1156 ml Intake Oral 200 ml 3332 ml IV Total 628 ml 4234 ml Output Urine Total 1400 ml 6410 ml # Bowel Movements 6 General: No Acute Distress Neck: Supple Lungs: Normal Air Movement Abdomen: Benign, Soft, Non-distended, Normoactive bowel tones Extremities: Distal Pulses Palpable Neuro: Grossly Neurologically Intact Result Diagram: 03/01/17 0519 03/01/1719 Lab & Micro Results: final urine culture 02/25/17 campuzano sensitive e.coli blood cultures no growth to date 02/25/17 Assessment & Plan Impression Pt is a 71YOF with CKD Stage IV, who was found to have bilateral hydronephrosis. She is POD #1 s/p Cystoscopy, bilateral retrograde pyelograms, Bilateral ureteral stent placement. Problems: Plan 1.UTI Final culture showed campuzano sensitive e.coli, pt is being treated with Rocephin 2g IV QD 2. Bilateral hydronephrosis. s/p bilateral stent placement Today discussed with pt that bilateral stents will be kept in place for 3 months, and will reevaluate stent change at that time. Pt will be seen in our office as an outpatient within 2 weeks of hospital discharge. Upon discharge will set up appointment date for her. Baseline creatinine appears to be around 4, prior to admission. Will continue to follow. We greatly appreciate nephrology and hospitalist continuing to follow pt for her multiple medical problems. VTE Prophylaxis: Sub-Q Heparin (Unfractionated), SCDs Resuscitation Status: CPR: Attempt Resuscitation Nicole Brooks PA-C Mar 01, 2017 16:57
--- NOTE | 2017-03-01 18:27 | NUR ---
Activity- Patient needed alot of encouragement to get up out of bed to work with PT. She refused earlier because she has been wanting to sleep. She ambulated in hallway with walker and then wanted to lay back down. BP lying before walking was 155/77 and 108/71 when she stood up. HR-80-100's. Patient denied feeling dizzy when up and able to ambulate about 60 feet.
[2017-03-01 19:43] VITALS: BP 128/73; PULSE 72; RESP 16; O2SAT 95
[2017-03-01] MEDS: diphenhydrAMINE 25 mg Capsule PO PRN (21:20)
[2017-03-01] MEDS: cefTRIAXone Inj 2,000 MG in Dextrose 5% Minibag Plus 50 ML IV SCH (21:21)
--- NOTE | 2017-03-01 21:23 | PCM.PNMED ---
Subjective Date of Service Mar 01, 2017 Subjective The patient remains pleasantly demented she has no specific complaints today. Nursing staff was concerned this morning as she was quite somnolent. However, later in the morning she was more awake and alert and responsive. Exam Vital Signs Vital Sign - Last Date Time Temp Pulse Resp B/P Pulse Ox O2 Delivery O2 Flow Rate FiO2 03/01/17 19:43 37.3 72 16 128/73 95 Room Air 02/28/17 13:15 8 Intake and Output 02/28/17 02/28/17 03/01/17 Cumulative From/Thru 15:00 23:00 07:00 02/25/17 17:03 - 03/01/17 06:53 Intake Total 300 ml 516 ml 828 ml 7566 ml Output Total 750 ml 1400 ml 6410 ml Balance 300 ml -234 ml -572 ml 1156 ml Intake Oral 0 ml 200 ml 3332 ml IV Total 300 ml 516 ml 628 ml 4234 ml Output Urine Total 750 ml 1400 ml 6410 ml # Bowel Movements 0 6 Exam General: The patient is lying supine in bed in no apparent distress. She is more somnolent this morning. However, by afternoon she was much more awake. HEENT: Head is atraumatic and normocephalic. Eyes: Pupils are equally round and reactive to light and accommodation. Extraocular muscles are intact. Sclera are white, anicteric. Subconjunctival mucosa is pink. Ears and nose are unremarkable. Oropharynx: There is no mucosal lesions, there is no thrush, there is no pharyngitis. Neck: Is supple, there are no nodes, or masses or tenderness. Chest: Is clear to auscultation and percussion. There are no rales, rhonchi, wheezes or rubs. Heart: Rate, rhythm is regular. There is no murmur, rub or gallop. Abdomen: Good bowel sounds are present. Abdomen is obese, soft, nontender, no organomegaly or masses were appreciated. Extremities: Are symmetrical and well perfused. There is no edema, there is no cellulitis, no rash. Neurologic: There are no focal neurological deficits. Cranial nerves II through XII are intact. There are no sensory or motor deficits. Patient remains pleasantly confused and forgetful. Psychiatric: Patients mood is calm and shows no sign of agitation. Genital: Deferred Rectal: Deferred Lab and Diagnostics Result Diagram: 03/01/1751803/01/17518 Microbiology Name: RAMON NEWMNA Age/Sex: 71/F Attend Dr: Dl Christensen Acct: [id number] Unit: [id number] Status: ADM Jm [place] [facility] [place]1-1 Re02/25/17 Disch: Specimen: [id number] Collected: 02/25/17 Status: RES Req#: [id number] Received: 02/25/17 Source: RANDOM Sp Desc : HALEY Plummer Dr: Abelardo Dcikey MD Ordered: URINE CULT Procedure Result Verified Site Microbiology MARY CULT URINE Preliminary 02/26/17-828 PRELIMINARY ID GRAM NEGATIVE JEFFERSON ID AND SENS TO FOLLOW COLONY COUNT/QUANTITY >100,000 CFU/ml X-Rays, CTs and MRIs PATIENT NAME: RAMON NEWMAN MR#: [id number] LOCATION: [facility] ORDERING PHYS: Livier Irving MD DATE OF SERVICE: 02/25/17 1530 US RENAL SONOGRAM IMPRESSION: 1. Bilateral hydronephrosis and ureterectasis without obstructing lesion identified. Findings discussed with Dr. Moya by the dean of education at 4:20 pm on 02/25/2017. At his request the patient will proceed to the emergency department. 2. Bilateral chronic renal disease. Dictated by: Daniel Hunt M.D. on 02/25/2017 at 16:29 Approved by: Daniel Hunt M.D. on 02/25/2017 at 16:[address] PELVIS WITHOUT CONTRAST on 12/23/2016 IMPRESSION: 1. No right hip fracture is evident. If there remains high clinical concern for a subtle right hip fracture, please consider obtaining an MRI of the hip for better evaluation. 2. Mild to moderate degenerative changes and osteopenia of the imaged bony structures of the pelvis. 3. Prominent thickening of the urinary bladder wall with surrounding edema and corresponding distal bilateral hydroureter and periureteral edema is suspicious for an ascending urinary tract infection. An infiltrative/neoplastic process is felt to be less likely, but cannot be completely excluded. Please correlate clinically. Dictated by: Satya Mccarthy M.D. on 12/23/2016 at 15:17 Approved by: Satya Mccarthy M.D. on 12/23/2016 at 15:25 Additional Diagnostics DATE OF SURGERY: 02/28/2017 PREOPERATIVE DIAGNOSIS(ES): Bilateral hydronephrosis. POSTOPERATIVE DIAGNOSIS(ES): Bilateral hydronephrosis. PROCEDURE PERFORMED: 1. Cystoscopy and bilateral retrograde pyelograms. 2. Bilateral ureteral stent placement. 3. Pelvic exam. SURGEON: Alexandria Alvarez MD. Assessment & Plan The patient is a 71-year-old female with past medical history remarkable for recent diagnosis of stage IV chronic kidney disease with concomitant distal bilateral hydroureter seen on CT imaging who presents to the [facility] emergency Department after ultrasound imaging showed bilateral hydronephrosis. # Acute urinary tract infection - Patient denies complaints of urinary tract infection including dysuria, increased urgency or frequency - UA shows WBCs > 50, with large leukocyte esterase, and positive nitrites with moderate bacteria and moderate epithelial cells - UA was sent for culture and is positive for greater than 100,000 gram- negative rods which cultured out as Escherichia coli. - Prior hospitalization for urinary tract infection showed cultures positive for Escherichia coli with good sensitivities - The patient was started on Rocephin IV - Avoid nephrotoxic agents - Continue Rocephin 2 g IV daily # Acute on chronic bilateral hydronephrosis - Patient denies worsening back or flank pain or inability to empty bladder, patient describes chronic urinary incontinence - Prior CT imaging (impression included above) at the time of hospitalization on December 23, 2016 described thickening of the bladder wall and distal bilateral hydroureter making chronic kidney disease due to urinary obstruction a possibility given worsening hydronephrosis seen on ultrasound today - Urology was consulted and Dr. Diez saw the patient initially - Given likely need for ureteral stenting/decompression antibiotics will be continued in the postoperative period and a sterile environment for future ureteral stent placement - The patient was taken to surgery by Dr. Alexandria Alvarez who performed the following: Cystoscopy and bilateral retrograde pyelograms, bilateral ureteral stent placement, and a pelvic exam. Patient is postop day #1. Postoperatively she has an indwelling Barakat catheter she has some hematuria. The hematuria is improving # Hyperkalemia, present at the time of admission. Active - Potassium at admission is 5.8, likely elevated secondary to chronic kidney disease - Kayexalate one time dose given at admission. The potassium is now 5.1. The patient may need additional doses of Kayexalate. - We will continue to Monitor # Chronic kidney disease stage V, present of the time admission. Active - Creatinine at admission is 4.38 which appears to be an approximate baseline when compared to prior hospitalization in December 23, 2016 to December 29, 2016 - Review of records indicate a baseline creatinine of 1.4-1.5 at approximately 5 years ago - At prior hospitalization chronic kidney disease was thought to be due to chronic NSAID use as Patient described chronic use of Naproxen every 4 hours for the last several years to treat chronic arthritis and gout joint pain - Prior CT imaging (impression included above) at the time of hospitalization on December 23, 2016 described thickening of the bladder wall and distal bilateral hydroureter making chronic kidney disease due to urinary obstruction a possibility given worsening hydronephrosis seen on ultrasound today - Calcium acetate 667 mg 3 times a day for phosphate binding - Patient was previously started on oral sodium bicarbonate likely by patient's classroom aide , this has been restarted. - Nephrology consultation and follow-up appreciated. Their time and expertise appreciated. Dr. MARIA TERESA Arzola's note appreciated and patient will be following up with Dr. Everett after discharge. # Anemia secondary to chronic kidney disease - Previously diagnosed as secondary to chronic kidney disease with low TIBC and normal iron and ferritin - Nephrology consulted and we appreciate their recommendations, patient was previously given a one time dose of darbepoetin # Chronic hyperparathyroidism - Secondary to chronic kidney disease noted on last admission - initiate PhosLo 3 times a day - Encourage vitamin D supplementation # Chronic interstitial nephritis - UA shows small amount of occult blood with 3-10 RBCs - likely will need baseline protein creatinine ratio however ongoing UTI with increased WBC and bacteria is unlikely to give fair baseline assessment - Nephrology consulted and we appreciate to recommendations Disposition: Urology will be back to evaluate the patient on Tuesday and will determine her course of treatment after their visit. I spoke with Dr. Alexandria Alvarez. Pain Evaluation: Adequate Pain Control GI Prophylaxis: Not indicated VTE Prophylaxis: Sub-Q Heparin (Unfractionated), SCDs VTE Mechanical Devices: Intermittant Pneumatic CD Resuscitation Status: CPR: Attempt Resuscitation Yorba LindaDl MD Mar 01, 2017 21:23
[2017-03-02] MEDS: Heparin 5,000 Unit/mL Inj SUBQ SCH ×3 (00:51→18:26)
--- NOTE | 2017-03-02 02:17 | NUR ---
Sleep Patient c/o difficulty sleeping at start of shift, voiced that sleep was her main concern. Reduced stimuli in attempts to optimize time between care. Sleeping comfortably at this time, denies pain, sob, and abdominal discomfort. Call light and table within reach, intentional rounding.
[2017-03-02 04:19] VITALS: BP 112/66; PULSE 79; RESP 16; O2SAT 98
[2017-03-02 05:50] LABS: BASOPHILS % (AUTO) 0.3 % (0-3); MONOCYTES % (AUTO) 9.8 % (4-12); Mean Corpuscular Hemoglobin 29.7 pg (27.0-35.0); Mean Corpuscular Volume 96.9 fL (81-100); NEUTROPHILS % (AUTO) 78.2 % (40-74); Platelet Count 240 bil/L (150-400)
[2017-03-02 06:14] LABS: Magnesium 1.7 mg/dL (1.6-2.6)
[2017-03-02] MEDS ORDERED: Magnesium Sulf 2 Gm/50mL Water 2 GM in IV Premix 1 EACH IV ONE (08:30)
[2017-03-02] MEDS ORDERED: Darbepoetin Alfa 60 mCg/0.3 mL Inj SUBQ ONE (08:55)
[2017-03-02] MEDS ORDERED: Ferric Sod Gluc Complex Inj 125 MG in 0.9% Sodium Chloride 100 ML IV ONE (08:55)
--- NOTE | 2017-03-02 09:23 | PCM.PNSURG ---
Subjective Date of Service: Mar 02, 2017 Date of Service: Mar 02, 2017 Visit Information: Reason for Visit Uti,Hydronephrosis Surgery/Surgery Date BILAT STENT PLCMNT/CYSTOSCOPY 02/28/17 Post-Op Day # 2 Date of Admission: Feb 25, 2017 at 21:47 Hospital Day # 3 Subjective: Ms Gonzalez states she has no pain. She denies n/v. She wonders if she might DC home today or tomorrow. Postop General: No Complaints Gastrointestinal: Good Appetite Objective Vital Sign- Last 8 Hours Date Time Temp Pulse Resp B/P Pulse Ox O2 Delivery O2 Flow Rate FiO2 03/02/17 04:19 37.3 79 16 112/66 98 Room Air Intake and Output- Last 8 Hour 03/02/17 Cumulative From/Thru 07:00 02/25/17 17:03 - 03/02/17 05:28 Intake Total 640 ml 9370 ml Output Total 650 ml 7810 ml Balance -10 ml 1560 ml Intake Oral 640 ml 4472 ml IV Total 4898 ml Output Urine Total 650 ml 7810 ml # Bowel Movements 0 6 General: Alert, Cooperative, No Acute Distress Abdomen: Soft, Non-tender Neuro: Cranial Nerves 2-12 nl Catheters: Urethral 2 Way Harper Result Diagram: 03/02/17 0515 03/02/17 0515 Assessment & Plan Impression POD# 2 Bilateral ureteral stent placement Problems: Plan We reviewed her intraoperative findings We discussed her ureteral stents - Nature of, rationale for - Stents can be retained for about 3 mos - She voiced understanding, but it's difficult to know how much she will retain We discussed her Cr - Improved yesterday to 3.88 - Today, it's back to 4.24 Difficult to ascertain at this point how helpful the stents are - We discussed DC harper now/today, which I have ordered I reviewed with her the follow-up plan - She isn't sure when she can coordinate with her 's schedule, but for now, I have her follow-up appt set for 03/18/17, check-in at 12:45 PM for a 1 PM appt - She is welcome to change her appt time; I'd like to see her in about 2 wks Please, do not hesitate to contact me with questions/concerns. - I'm in OR today, and I can be contacted through [phone] (OR front office attendant) or via my office main line [phone] I will sign off of patient now, unless there are further developments/concerns that arise during her admission. Thank you for your kind consultation of this pleasant woman. VTE Prophylaxis: Sub-Q Heparin (Unfractionated), SCDs Resuscitation Status: CPR: Attempt Resuscitation Alexandria Alvarez MD Mar 02, 2017 09:23
--- NOTE | 2017-03-02 11:38 | PCM.PNNEPH ---
Subjective Date of Service Mar 02, 2017 Subjective Her blood pressure has improved. She reports no fever, no chills, no chest pain, no sugars of breath. She has good urine output. Serum creatinine today increased slightly to 4.2, relatively stable eGFR. She was evaluated by urologist this morning. Removal of Barakat catheter was ordered. Exam Vital Signs Vital Sign - Last Date Time Temp Pulse Resp B/P Pulse Ox O2 Delivery O2 Flow Rate FiO2 03/02/17 10:35 Room Air 03/02/17 04:19 37.3 79 16 112/66 98 02/28/17 13:15 8 Intake and Output 03/01/17 03/01/17 03/02/17 Cumulative From/Thru 15:00 23:00 07:00 02/25/17 17:03 - 03/02/17 05:28 Intake Total 1164 ml 640 ml 9370 ml Output Total 750 ml 650 ml 7810 ml Balance 414 ml -10 ml 1560 ml Intake Oral 500 ml 640 ml 4472 ml IV Total 664 ml 4898 ml Output Urine Total 750 ml 650 ml 7810 ml # Bowel Movements 0 6 Exam GENERAL: The patient in no apparent distress, she is demented, oriented 2 place and time. HEENT: Head is normocephalic and atraumatic. Extraocular muscles are intact. Pupils are equal, round, and reactive to light and accommodation. NECK: Supple, no elevation of JVD, No carotid bruits. No lymphadenopathy or thyromegaly. LUNGS: Clear to auscultation, equal breath sounds bilaterally, no wheezing, no rhonchi no rales. HEART: Normal S1/S2, Regular rate and rhythm, no murmurs, rubs or gallops. 2+ pules throughout. ABDOMEN: Soft, nontender, and nondistended. Positive bowel sounds. No hepatosplenomegaly was noted. EXTREMITIES: Without any cyanosis, clubbing, rash, lesions or edema. NEUROLOGIC: The patient is oriented to person, place and time. Strength and sensation are grossly intact. : Barakat catheter in place with pinkish urine. Lab and Diagnostics Result Diagram: 03/02/1715 03/02/1715 Microbiology Name: RAMON NEWMAN Age/Sex: 71/F Attend Dr: Dl Christensen Acct: [id number] Unit: [id number] Status: ADM [place]m [place] [facility] [place]02/25[place]17 Disch: Specimen: [id number] Collected: 02/25/17 Status: RES Req#: [id number] Received: 02/25/17 Source: RANDOM Sp Desc : PP Subm Dr: Abelardo Dickey MD Ordered: URINE CULT Procedure Result Verified Site Microbiology MARY CULT URINE Preliminary 02/26/17 PRELIMINARY ID GRAM NEGATIVE JEFFERSON ID AND SENS TO FOLLOW COLONY COUNT/QUANTITY >100,000 CFU/ml X-Rays, CTs and MRIs PATIENT NAME: RAMON NEWMAN MR#: [id number] LOCATION: [facility] ORDERING PHYS: Livier Irving MD DATE OF SERVICE: 02/25/17 1530 US RENAL SONOGRAM IMPRESSION: 1. Bilateral hydronephrosis and ureterectasis without obstructing lesion identified. Findings discussed with Dr. Moya by the product marketing director at 4:20 pm on 02/25/2017. At his request the patient will proceed to the emergency department. 2. Bilateral chronic renal disease. Dictated by: Daniel Hunt M.D. on 02/25/2017 at 16:29 Approved by: Daniel Hunt M.D. on 02/25/2017 at 16:[address] PELVIS WITHOUT CONTRAST on 12/23/2016 IMPRESSION: 1. No right hip fracture is evident. If there remains high clinical concern for a subtle right hip fracture, please consider obtaining an MRI of the hip for better evaluation. 2. Mild to moderate degenerative changes and osteopenia of the imaged bony structures of the pelvis. 3. Prominent thickening of the urinary bladder wall with surrounding edema and corresponding distal bilateral hydroureter and periureteral edema is suspicious for an ascending urinary tract infection. An infiltrative/neoplastic process is felt to be less likely, but cannot be completely excluded. Please correlate clinically. Dictated by: Satya Mccarthy M.D. on 12/23/2016 at 15:17 Approved by: Satya Mccarthy M.D. on 12/23/2016 at 15:25 Additional Diagnostics DATE OF SURGERY: 02/28/2017 PREOPERATIVE DIAGNOSIS(ES): Bilateral hydronephrosis. POSTOPERATIVE DIAGNOSIS(ES): Bilateral hydronephrosis. PROCEDURE PERFORMED: 1. Cystoscopy and bilateral retrograde pyelograms. 2. Bilateral ureteral stent placement. 3. Pelvic exam. SURGEON: Alexandria Alvarez MD. Plan Impression 1. Acute kidney injury on chronic kidney disease. - Status post bilateral ureteral stent placement. - Kidney function has been stable. - Continue IV antibiotics for Escherichia coli UTI. - Renally dose medications, avoid nephrotoxins. - Barakat catheter to be removed today. We will check postvoid residual afterwards. 2. Chronic kidney disease, stage V, secondary to chronic NSAID use - Avoid nephrotoxins. - No urgent dialysis indicated at this moment. - If patient is ready to be discharged, she will follow up with her primary smoke control supervisor. 3. And gap metabolic acidosis - Continue sodium bicarbonate. 4. Anemia of chronic kidney disease and iron deficiency anemia - Current hemoglobin is 11.6 - Continue to monitor - We will give her 1 dose of Ferrlecit 125 mg today and Aranesp 60 g subcutaneous today. 5. Secondary hyperparathyroidism. - Continue PhosLo. PTH is within range in the setting of stage 5 chronic kidney disease. 6. Hypertension Continue Norvasc 5 mg once a day, Coreg 6.25 mg twice a day Continue to monitor blood pressure and heart rate. Trisha Chowdary MD Mar 02, 2017 11:38
[2017-03-02 16:04] VITALS: BP 117/67; PULSE 68; RESP 18; O2SAT 94
--- NOTE | 2017-03-02 16:58 | NUR ---
Social Work- Continued D/C Planning Data & Assessment: EMR reviewed. Pt is on day 5 of hospitalization for UTI, Hydronephrosis per H&P. Pt is not medically stable for discharge, nephrology and urology are consulting. Pt's harper has been discontinued. SW acknowledges SNF order from MD. PT has seen pt and pt was able to ambulate 100 feet with fww. T/C to pt's Viraj Gonzalez [phone] regarding discharge plan, SW explained SNF recommendation. Viraj states that pt was recently in [facility] about a month ago and pt did not participate in skilled rehab while there. SW explained that pt would have to participate in skilled rehab while at [facility]. Pt's agreeable that SNF is not a good fit for pt at this time. SW spoke with pt's regarding HH and getting RN PT and potentially a bath aide to assist at home. Pt's feels that pt may be more agreeable to PT if it was in her own home. Pt's states that he works 12 hour days and pt is often at home alone. SW discussed possibility of having caregivers come to pt's home to offer pt extra support. SW also discussed possibility of coordinating respite with an assisted living facility. Pt's agreeable to these options and stated that finances are available for these options. Pt's requested that MARKETING UNDERWRITER connect him with [facility] caregivers. SW to connect with [facility] tomorrow about contacting pt's . Pt's confirms that pt has a fww and BSC at home to use. SW to put resource guide in pt's room for to have as well. SW to discuss with MD tomorrow HH vs. respite at assisted living vs. caregivers. SW will continue to follow. Plan: At this time, pt is not a good SNF candidate per pt's as she reportedly did not participate with skilled PT during her last SNF stay. SW to speak with MD about HH services and will connect pt's with private pay caregivers or respite at an assisted living facility. SW will continue to follow. LIZY Rincon
--- NOTE | 2017-03-02 19:05 | NUR ---
Barakat dcd this am. Pt was incontinent of large amt of urine later. up with walker
[2017-03-02 21:01] VITALS: BP 122/71; PULSE 70; RESP 18; O2SAT 93
[2017-03-02] MEDS: cefTRIAXone Inj 2,000 MG in Dextrose 5% Minibag Plus 50 ML IV SCH (21:49)
--- NOTE | 2017-03-02 21:59 | PCM.PNMED ---
Subjective Date of Service Mar 02, 2017 Subjective Patient remains pleasantly confused. She has no new complaints. Exam Vital Signs Vital Sign - Last Date Time Temp Pulse Resp B/P Pulse Ox O2 Delivery O2 Flow Rate FiO2 03/02/17 21:01 37.1 70 18 122/71 93 Room Air 02/28/17 13:15 8 Intake and Output 03/01/17 03/01/17 03/02/17 Cumulative From/Thru 15:00 23:00 07:00 02/25/17 17:03 - 03/02/17 05:28 Intake Total 1164 ml 640 ml 9370 ml Output Total 750 ml 650 ml 7810 ml Balance 414 ml -10 ml 1560 ml Intake Oral 500 ml 640 ml 4472 ml IV Total 664 ml 4898 ml Output Urine Total 750 ml 650 ml 7810 ml # Bowel Movements 0 6 Exam General: The patient is lying supine in bed in no apparent distress. HEENT: Head is atraumatic and normocephalic. Eyes: Pupils are equally round and reactive to light and accommodation. Extraocular muscles are intact. Sclera are white, anicteric. Subconjunctival mucosa is pink. Ears and nose are unremarkable. Oropharynx: There is no mucosal lesions, there is no thrush, there is no pharyngitis. Neck: Is supple, there are no nodes, or masses or tenderness. Chest: Is clear to auscultation and percussion. There are no rales, rhonchi, wheezes or rubs. Heart: Rate, rhythm is regular. There is no murmur, rub or gallop. Abdomen: Good bowel sounds are present. Abdomen is obese, soft, nontender, no organomegaly or masses were appreciated. Extremities: Are symmetrical and well perfused. There is no edema, there is no cellulitis, no rash. Neurologic: There are no focal neurological deficits. Cranial nerves II through XII are intact. There are no sensory or motor deficits. Patient remains pleasantly confused and forgetful. Psychiatric: Patients mood is calm and shows no sign of agitation. Genital: Deferred Rectal: Deferred Lab and Diagnostics Result Diagram: 03/02/17 0515 03/02/17 0515 Microbiology Name: RAMON NEWMAN Age/Sex: 71/F Attend Dr: Dl Christensen Acct: [id number] Unit: [id number] Status: ADM Jm Location: [facility] 1011-1 Re02/25/17 Disch: Specimen: [id number] Collected: 02/25/17 Status: RES Req#: [id number] Received: 02/25/17 Source: RANDOM Sp Desc : PP Elian Dr: Abelardo Dickey MD Ordered: URINE CULT Procedure Result Verified Site Microbiology MARY CULT URINE Preliminary 02/26/17 PRELIMINARY ID GRAM NEGATIVE JEFFERSON ID AND SENS TO FOLLOW COLONY COUNT/QUANTITY >100,000 CFU/ml X-Rays, CTs and MRIs PATIENT NAME: RAMON NEWMAN MR#: [id number] LOCATION: [facility] ORDERING PHYS: Livier Irving MD DATE OF SERVICE: 02/25/17 1530 US RENAL SONOGRAM IMPRESSION: 1. Bilateral hydronephrosis and ureterectasis without obstructing lesion identified. Findings discussed with Dr. Moya by the fabricating machine operator at 4:20 pm on 02/25/2017. At his request the patient will proceed to the emergency department. 2. Bilateral chronic renal disease. Dictated by: Daniel Hunt M.D. on 02/25/2017 at 16:29 Approved by: Daniel Hunt M.D. on 02/25/2017 at 16:[address] PELVIS WITHOUT CONTRAST on 12/23/2016 IMPRESSION: 1. No right hip fracture is evident. If there remains high clinical concern for a subtle right hip fracture, please consider obtaining an MRI of the hip for better evaluation. 2. Mild to moderate degenerative changes and osteopenia of the imaged bony structures of the pelvis. 3. Prominent thickening of the urinary bladder wall with surrounding edema and corresponding distal bilateral hydroureter and periureteral edema is suspicious for an ascending urinary tract infection. An infiltrative/neoplastic process is felt to be less likely, but cannot be completely excluded. Please correlate clinically. Dictated by: Satya Mccarthy M.D. on 12/23/2016 at 15:17 Approved by: Satya Mccarthy M.D. on 12/23/2016 at 15:25 Additional Diagnostics DATE OF SURGERY: 02/28/2017 PREOPERATIVE DIAGNOSIS(ES): Bilateral hydronephrosis. POSTOPERATIVE DIAGNOSIS(ES): Bilateral hydronephrosis. PROCEDURE PERFORMED: 1. Cystoscopy and bilateral retrograde pyelograms. 2. Bilateral ureteral stent placement. 3. Pelvic exam. SURGEON: Alexandria Alvarez MD. Assessment & Plan The patient is a 71-year-old female with past medical history remarkable for recent diagnosis of stage IV chronic kidney disease with concomitant distal bilateral hydroureter seen on CT imaging who presents to the [facility] emergency Department after ultrasound imaging showed bilateral hydronephrosis. # Acute urinary tract infection - Patient denies complaints of urinary tract infection including dysuria, increased urgency or frequency - On admission UA shows WBCs > 50, with large leukocyte esterase, and positive nitrites with moderate bacteria and moderate epithelial cells - UA was sent for culture and is positive for greater than 100,000 gram- negative rods which cultured out as Escherichia coli. - Prior hospitalization for urinary tract infection showed cultures positive for Escherichia coli with good sensitivities - The patient was started on Rocephin IV - Avoid nephrotoxic agents - Continue Rocephin 2 g IV daily # Acute on chronic bilateral hydronephrosis - Patient denies worsening back or flank pain or inability to empty bladder, patient describes chronic urinary incontinence - Prior CT imaging (impression included above) at the time of hospitalization on December 23, 2016 described thickening of the bladder wall and distal bilateral hydroureter making chronic kidney disease due to urinary obstruction a possibility given worsening hydronephrosis seen on ultrasound today - Urology was consulted and Dr. Diez saw the patient initially - Given likely need for ureteral stenting/decompression antibiotics will be continued in the postoperative period and a sterile environment for future ureteral stent placement - The patient was taken to surgery by Dr. Alexandria Alvarez who performed the following: Cystoscopy and bilateral retrograde pyelograms, bilateral ureteral stent placement, and a pelvic exam. Patient is postop day #2. Postoperatively she had an indwelling Barakat catheter she has some hematuria. The hematuria is improving. Barakat catheter has been removed and will check postvoid residuals. # Hyperkalemia, present at the time of admission. Active and improved to 4.5. - Potassium at admission is 5.8, likely elevated secondary to chronic kidney disease - Kayexalate one time dose given at admission. The potassium is now 4.5. The patient may need additional doses of Kayexalate. - We will continue to Monitor # Chronic kidney disease stage V, present of the time admission. Active - Creatinine at admission is 4.38 which appears to be an approximate baseline when compared to prior hospitalization in December 23, 2016 to December 29, 2016 - Review of records indicate a baseline creatinine of 1.4-1.5 at approximately 5 years ago - At prior hospitalization chronic kidney disease was thought to be due to chronic NSAID use as Patient described chronic use of Naproxen every 4 hours for the last several years to treat chronic arthritis and gout joint pain - Prior CT imaging (impression included above) at the time of hospitalization on December 23, 2016 described thickening of the bladder wall and distal bilateral hydroureter making chronic kidney disease due to urinary obstruction a possibility given worsening hydronephrosis seen on ultrasound today - Calcium acetate 667 mg 3 times a day for phosphate binding - Patient was previously started on oral sodium bicarbonate likely by patient's electric arc welder , this has been restarted. - Nephrology consultation and follow-up appreciated. Their time and expertise appreciated. Dr. MARIA TERESA Arzola's note appreciated and patient will be following up with Dr. Everett after discharge. # Anemia secondary to chronic kidney disease - Previously diagnosed as secondary to chronic kidney disease with low TIBC and normal iron and ferritin - Nephrology consulted and we appreciate their recommendations, patient was given a dose of Ferrlecit and Aranesp today 03/02/2017. # Chronic hyperparathyroidism - Secondary to chronic kidney disease noted on last admission - initiate PhosLo 3 times a day - Encourage vitamin D supplementation # Chronic interstitial nephritis - UA shows small amount of occult blood with 3-10 RBCs - likely will need baseline protein creatinine ratio however ongoing UTI with increased WBC and bacteria is unlikely to give fair baseline assessment - Nephrology consulted and we appreciate to recommendations Disposition: I have asked social work faculty member to look into possible transfer to a fpc facility for patient to continue her therapy and get some rehabilitation therapy. Patient is okay with this plan Pain Evaluation: Adequate Pain Control GI Prophylaxis: Not indicated VTE Prophylaxis: Sub-Q Heparin (Unfractionated), SCDs VTE Mechanical Devices: Intermittant Pneumatic CD Resuscitation Status: CPR: Attempt Resuscitation Dl Christensen MD Mar 02, 2017 21:59
--- NOTE | 2017-03-02 23:49 | NUR ---
Incontinence/ Bladder scan Patient continues to be incontinent of urine. States that she knows when she has to go, but does not let staff know. Educated the patient on letting the staff know when she needs to go to the bathroom so that we can get to the BSC, to protect her skin from breakdown. Patient states that she understands, but has not let us know of needing to go to the bathroom so far this shift. Bladder scan was preformed at 2300 and showed PVR of 127cc. Will continue to monitor, and continue Q1 hour checks.
[2017-03-03] MEDS: Heparin 5,000 Unit/mL Inj SUBQ SCH ×3 (00:16→17:53)
[2017-03-03 04:14] VITALS: BP 110/65; PULSE 75; RESP 18; O2SAT 96
[2017-03-03 05:45] LABS: Mean Corpuscular Hemoglobin 29.7 pg (27.0-35.0); Mean Corpuscular Volume 96.6 fL (81-100); Platelet Count 246 bil/L (150-400)
[2017-03-03 06:07] LABS: Magnesium 2.3 mg/dL (1.6-2.6)
[2017-03-03 06:08] LABS: BASOPHILS % (AUTO) 0 % (0-3); EOSINOPHILS % (AUTO) 0 % (0-5); MONOCYTES % (AUTO) 8 % (4-12); NEUTROPHILS % (AUTO) 79 % (40-74)
[2017-03-03 09:30] VITALS: BP 121/76; PULSE 71; RESP 18; O2SAT 97
[2017-03-03] MEDS: 0.9% Sodium Chloride 1,000 ML IV SCH ×2 (10:03→21:22)
[2017-03-03] MEDS: cefTRIAXone Inj 1,000 MG in Dextrose 5% Minibag Plus 50 ML IV SCH (10:05)
[2017-03-03 13:11] VITALS: BP_SYST 122; BP_SYST 132; BP_DIAS 73; BP_DIAS 82; PULSE 74; RESP 18; O2SAT 96
[2017-03-03 13:12] VITALS: BP 118/71
--- NOTE | 2017-03-03 15:04 | NUR ---
Social Work- Readiness for Discharge Data: EMR reviewed. Pt is on day 6 of hospitalization for UTI, Hydronephrosis per H&P. Pt is not medically stable for discharge, anticipate 1-2 more days. REY discussed with in AM rounds that per pt's pt is not a SNF candidate at this time as she does not participate. PT has seen pt and pt was able to ambulate 100 feet with fww and steady ambulation. In discussion with pt's , pt's feels that continued PT at home would be beneficial. agrees that HH RN PT CAD INTERN are medically indicated at this time. REY also recommends that TUBE ROOM SUPERVISOR would be helpful to pt's to connect him with resources for respite in the community as he is pt's primary caregiver when he is not working. T/C to pt's Viraj Gonzalez [phone] regarding HH, pt's has no HH company preference but is agreeable that HH would be beneficial. SW made referral to [facility] per rotating vendor calendar. T/C to [facility] who is agreeable to review pt for services. TEST INSPECTION ENGINEER to fax [facility] clinicals on pt today. F2F has been provided to the MD for completion. SW also connected pt's Viraj with Marcie from [facility] (per his request) to consult regarding caregiving options and respite options. Pt's confirms that pt has a fww and BSC at home to use. Pt to discharge home with HH RN PT CAD INTERN and TUBE ROOM SUPERVISOR services pending review and acceptance by [facility] , to transport via POV. has F2F to complete. SW will continue to follow. Assessment: Pt for whom HH services are medically necessary. Plan: Pt to discharge home with HH RN PT CAD INTERN and TUBE ROOM SUPERVISOR services pending review and acceptance by [facility] , to transport via POV. has F2F to complete. Pt's has been connected with [facility] as well. SW will continue to follow. LIZY Rincon
[2017-03-03 17:57] VITALS: BP 139/82; PULSE 82
--- NOTE | 2017-03-03 19:34 | NUR ---
Activity Pt slept most of shift, able to get up to BSC and ambulate to hallway once. Has brief in place and did have some episodes of incontinence. Denies pain. Declined to eat dinner. Bed in low, call light in reach, care continues.
[2017-03-03 19:35] VITALS: BP 134/74; PULSE 82; RESP 18; O2SAT 95
[2017-03-03] MEDS: diphenhydrAMINE 25 mg Capsule PO PRN (22:29)
--- NOTE | 2017-03-03 22:45 | PCM.PNMED ---
Subjective Date of Service Mar 03, 2017 Subjective The patient appears to be more alert and oriented and more lucid. She appears to be less confused. Exam Vital Signs Vital Sign - Last Date Time Temp Pulse Resp B/P Pulse Ox O2 Delivery O2 Flow Rate FiO2 03/03/17 19:35 38.1 82 18 134/74 95 Room Air 02/28/17 13:15 8 Intake and Output 03/02/17 03/02/17 03/03/17 Cumulative From/Thru 15:00 23:00 07:00 02/25/17 17:03 - 03/03/17 06:16 Intake Total 740 ml 558 ml 1361 ml 71511 ml Output Total 350 ml 832 ml 8992 ml Balance 740 ml 208 ml 529 ml 3037 ml Intake Oral 558 ml 340 ml 5370 ml IV Total 740 ml 1021 ml 6659 ml Output Urine Total 350 ml 832 ml 8992 ml # Voids 1 1 # Bowel Movements 0 6 Exam General: The patient is lying supine in bed in no apparent distress. HEENT: Head is atraumatic and normocephalic. Eyes: Pupils are equally round and reactive to light and accommodation. Extraocular muscles are intact. Sclera are white, anicteric. Subconjunctival mucosa is pink. Ears and nose are unremarkable. Oropharynx: There is no mucosal lesions, there is no thrush, there is no pharyngitis. Neck: Is supple, there are no nodes, or masses or tenderness. Chest: Is clear to auscultation and percussion. There are no rales, rhonchi, wheezes or rubs. Heart: Rate, rhythm is regular. There is no murmur, rub or gallop. Abdomen: Good bowel sounds are present. Abdomen is obese, soft, nontender, no organomegaly or masses were appreciated. Extremities: Are symmetrical and well perfused. There is no edema, there is no cellulitis, no rash. Neurologic: There are no focal neurological deficits. Cranial nerves II through XII are intact. There are no sensory or motor deficits. Patient remains pleasantly confused and forgetful. However, she presented a more lucid and confusion appears to be slightly improved. Psychiatric: Patients mood is calm and shows no sign of agitation. Genital: Deferred Rectal: Deferred Lab and Diagnostics Result Diagram: 03/03/1751903/03/17519 Microbiology Name: RAMON NEWMAN Age/Sex: 71/F Attend Dr: Dl Christensen Acct: [id number] Unit: [id number] Status: ADM Jm Location: [facility] 1011-1 Re02/25/17 Disch: Specimen: [id number] Collected: 02/25/17 Status: RES Req#: [id number] Received: 02/25/17 Source: RANDOM Sp Desc : HALEY Plummer Dr: Abelardo Dickey MD Ordered: URINE CULT Procedure Result Verified Site Microbiology MARY CULT URINE Preliminary 02/26/17-828 PRELIMINARY ID GRAM NEGATIVE JEFFERSON ID AND SENS TO FOLLOW COLONY COUNT/QUANTITY >100,000 CFU/ml X-Rays, CTs and MRIs PATIENT NAME: RAMON NEWMAN MR#: [id number] LOCATION: [facility] ORDERING PHYS: Livier Irving MD DATE OF SERVICE: 02/25/17 1530 US RENAL SONOGRAM IMPRESSION: 1. Bilateral hydronephrosis and ureterectasis without obstructing lesion identified. Findings discussed with Dr. Moya by the parts salesperson at 4:20 pm on 02/25/2017. At his request the patient will proceed to the emergency department. 2. Bilateral chronic renal disease. Dictated by: Daniel Hunt M.D. on 02/25/2017 at 16:29 Approved by: Daniel Hunt M.D. on 02/25/2017 at 16:[address] PELVIS WITHOUT CONTRAST on 12/23/2016 IMPRESSION: 1. No right hip fracture is evident. If there remains high clinical concern for a subtle right hip fracture, please consider obtaining an MRI of the hip for better evaluation. 2. Mild to moderate degenerative changes and osteopenia of the imaged bony structures of the pelvis. 3. Prominent thickening of the urinary bladder wall with surrounding edema and corresponding distal bilateral hydroureter and periureteral edema is suspicious for an ascending urinary tract infection. An infiltrative/neoplastic process is felt to be less likely, but cannot be completely excluded. Please correlate clinically. Dictated by: Satya Mccarthy M.D. on 12/23/2016 at 15:17 Approved by: Satya Mccarthy M.D. on 12/23/2016 at 15:25 Additional Diagnostics DATE OF SURGERY: 02/28/2017 PREOPERATIVE DIAGNOSIS(ES): Bilateral hydronephrosis. POSTOPERATIVE DIAGNOSIS(ES): Bilateral hydronephrosis. PROCEDURE PERFORMED: 1. Cystoscopy and bilateral retrograde pyelograms. 2. Bilateral ureteral stent placement. 3. Pelvic exam. SURGEON: Alexandria Alvarez MD. Assessment & Plan The patient is a 71-year-old female with past medical history remarkable for recent diagnosis of stage IV chronic kidney disease with concomitant distal bilateral hydroureter seen on CT imaging who presents to the [facility] emergency Department after ultrasound imaging showed bilateral hydronephrosis. # Acute urinary tract infection - Patient denies complaints of urinary tract infection including dysuria, increased urgency or frequency - On admission UA shows WBCs > 50, with large leukocyte esterase, and positive nitrites with moderate bacteria and moderate epithelial cells - UA was sent for culture and is positive for greater than 100,000 gram- negative rods which cultured out as Escherichia coli. - Prior hospitalization for urinary tract infection showed cultures positive for Escherichia coli with good sensitivities - The patient was started on Rocephin IV - Avoid nephrotoxic agents - Continue Rocephin, however as renal function does not appear to be improving will decrease dose from 2 g to 1 g IV daily # Acute on chronic bilateral hydronephrosis - Patient denies worsening back or flank pain or inability to empty bladder, patient describes chronic urinary incontinence - Prior CT imaging (impression included above) at the time of hospitalization on December 23, 2016 described thickening of the bladder wall and distal bilateral hydroureter making chronic kidney disease due to urinary obstruction a possibility given worsening hydronephrosis seen on ultrasound today - Urology was consulted and Dr. Diez saw the patient initially - Given likely need for ureteral stenting/decompression antibiotics will be continued in the postoperative period and a sterile environment for future ureteral stent placement - The patient was taken to surgery by Dr. Alexandria Alvarez who performed the following: Cystoscopy and bilateral retrograde pyelograms, bilateral ureteral stent placement, and a pelvic exam. Patient is postop day #3. Postoperatively she had an indwelling Barakat catheter she has some hematuria. The hematuria is improving. Barakat catheter has been removed and will check postvoid residuals. # Hyperkalemia, present at the time of admission. Active and improved to 4.4. - Potassium at admission is 5.8, likely elevated secondary to chronic kidney disease - Kayexalate one time dose given at admission. The potassium is now 4.4. - We will continue to Monitor # Chronic kidney disease stage V, present of the time admission. Active - Creatinine at admission is 4.38 which appears to be an approximate baseline when compared to prior hospitalization in December 23, 2016 to December 29, 2016 - Review of records indicate a baseline creatinine of 1.4-1.5 at approximately 5 years ago - At prior hospitalization chronic kidney disease was thought to be due to chronic NSAID use as Patient described chronic use of Naproxen every 4 hours for the last several years to treat chronic arthritis and gout joint pain - Prior CT imaging (impression included above) at the time of hospitalization on December 23, 2016 described thickening of the bladder wall and distal bilateral hydroureter making chronic kidney disease due to urinary obstruction a possibility given worsening hydronephrosis seen on ultrasound today - Calcium acetate 667 mg 3 times a day for phosphate binding - Patient was previously started on oral sodium bicarbonate 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 - Nephrology consultation and follow-up appreciated. Their time and expertise appreciated. Dr. MARIA TERESA Arzola's note appreciated and patient will be following up with Dr. Everett after discharge. - Nephrology as ordered continued IV fluids on the patient for now # Anemia secondary to chronic kidney disease - Previously diagnosed as secondary to chronic kidney disease with low TIBC and normal iron and ferritin - Nephrology consulted and we appreciate their recommendations, patient was given a dose of Ferrlecit and Aranesp today 03/02/2017. # Chronic hyperparathyroidism - Secondary to chronic kidney disease noted on last admission - initiate PhosLo 3 times a day - Encourage vitamin D supplementation # Chronic interstitial nephritis - UA shows small amount of occult blood with 3-10 RBCs - likely will need baseline protein creatinine ratio however ongoing UTI with increased WBC and bacteria is unlikely to give fair baseline assessment - Nephrology consulted and we appreciate to recommendations Disposition: As the patient's states that transfer to jail facility is not a good option as the patient will not participate in any recommended activities. The requested the patient come home with him when she is stable with home health services. I will consult social science professor to help arrange for patient to have a home health RN 3 times a week for 4 weeks for help with her complex medical problems vital signs taking physical assessment and medication dispensing. I will ask home health to provide physical therapy with a frequency of 2 times a week for 4 weeks to help with level balance and strengthening. I will ask for a home health aide for assistance with bathing. And will also consult a SHOWCASE TRIMMER for episode providing caregiver resources, respite options etc. Pain Evaluation: Adequate Pain Control GI Prophylaxis: Not indicated VTE Prophylaxis: Sub-Q Heparin (Unfractionated), SCDs VTE Mechanical Devices: Intermittant Pneumatic CD Resuscitation Status: CPR: Attempt Resuscitation AmparoDl MD Mar 03, 2017 22:45
[2017-03-04] MEDS: Heparin 5,000 Unit/mL Inj SUBQ SCH ×3 (01:20→18:05)
--- NOTE | 2017-03-04 03:00 | NUR ---
Temp At beginning of shift DOG BEHAVIORIST reports a temp of 38.1. 650mg Tylenol PO given. Upon reassessment patients temp has dropped back down to 36.7. Will continue to monitor and continue Q1 hour checks.
--- NOTE | 2017-03-04 04:32 | NUR ---
Urine Color This evening CONSERVATION PLANNER reported that patients urine seemed darker than the night before. Patient is incontinent of urine, so brief was examined and it appears to be pink tinged. Patient has had no complaints regarding voiding, but still does not let staff know when she needs to void. Will share this new finding with day shift. Care continues.
[2017-03-04 04:35] VITALS: BP 125/76; PULSE 67; RESP 18; O2SAT 96
[2017-03-04] MEDS: 0.9% Sodium Chloride 1,000 ML IV SCH ×2 (05:29→13:45)
[2017-03-04 05:36] LABS: BASOPHILS % (AUTO) 0.6 % (0-3); EOSINOPHILS % (AUTO) 1.6 % (0-5); MONOCYTES % (AUTO) 13.5 % (4-12); Mean Corpuscular Hemoglobin 29.4 pg (27.0-35.0); Mean Corpuscular Volume 97.8 fL (81-100); NEUTROPHILS % (AUTO) 67.2 % (40-74); Platelet Count 241 bil/L (150-400)
[2017-03-04 06:00] LABS: Magnesium 2.1 mg/dL (1.6-2.6)
[2017-03-04] MEDS: cefTRIAXone Inj 1,000 MG in Dextrose 5% Minibag Plus 50 ML IV SCH (08:48)
[2017-03-04 08:57] VITALS: BP 102/64; PULSE 71
--- NOTE | 2017-03-04 09:02 | NUR ---
HR/BP HR 70 and BP 102/64 this AM, coreg held due to parameters set by . Bed in low, pt has call light, care continues.
--- NOTE | 2017-03-04 11:17 | NUR ---
NUTRITION FOLLOW-UP: Assess: 71 YO F admitted for UTI, bilateral hydronephrosis. She is POD 4 for cystoscopy and bilateral retrograde pyelograms, bilateral ureteral stent placement, and a pelvic exam. Nephrology is following for CKD stg V. Pt is currently on a soft diet with variable PO intake of 0-100%. Last recorded BM was 5 days ago. PMHX: Asthma, gout, CKD stg IV, hx ETOH, Alzheimer's dementia. DIET: Soft, PO 0-100% LABS: Bun 41, guide changer 4.46, ca 8.0, alb 2.2 MEDICATIONS: Reviewed. GI: 2 BM 02/27. SKIN: No issues noted. ANTHROPOMETRICS: Wt: 94.4kg, BMI 34.6 kg/m2, Admit wt: 89.4 kg. IBW: 56.8 kg. ESTIMATED NEEDS: BMI Calories: 9059-2920 kcal/day (20-22 kcal/kg BW) Protein: 68-85 g/day (1.2-1.5 g/kg IBW) NUTRITION DIAGNOSIS: 1) Inadequate oral intake related to decreased ability to consume sufficient energy as evidenced by NPO status. --IMPROVING INTERVENTION: 1) Continue current diet. Encourage PO intake. Will add Ensure on L tray 2) New wt requested: reported new wt 94.4kg MONITOR/EVALUATE: PO, wt, labs, and GI/nutrition status. Follow per moderate nutrition risk guidelines.
--- NOTE | 2017-03-04 15:12 | PCM.PNNEPH ---
Subjective Date of Service Mar 04, 2017 Subjective Her blood pressure is on the low side She reports no difficulty urinating. Per nurse, she is incontinent, dark color urine noted. She spiked a temperature last night, 38.1C. Exam Vital Signs Vital Sign - Last Date Time Temp Pulse Resp B/P Pulse Ox O2 Delivery O2 Flow Rate FiO2 03/04/17 08:57 71 102/64 03/04/17 04:35 37.2 18 96 Room Air 02/28/17 13:15 8 Intake and Output 03/03/17 03/03/17 03/04/17 Cumulative From/Thru 14:59 22:59 06:59 02/25/17 17:03 - 03/04/17 06:35 Intake Total 1499 ml 1526 ml 16683 ml Output Total 804 ml 9796 ml Balance 1499 ml 722 ml 5258 ml Intake Oral 466 ml 440 ml 6276 ml IV Total 1033 ml 1086 ml 8778 ml Output Urine Total 804 ml 9796 ml # Voids 2 3 # Bowel Movements 0 0 6 Exam GENERAL: The patient in no apparent distress. HEENT: Head is normocephalic and atraumatic. Extraocular muscles are intact. Pupils are equal, round, and reactive to light and accommodation. NECK: Supple, no elevation of JVD, No carotid bruits. No lymphadenopathy or thyromegaly. LUNGS: Clear to auscultation, equal breath sounds bilaterally, no wheezing, no rhonchi no rales. HEART: Normal S1/S2, Regular rate and rhythm, no murmurs, rubs or gallops. 2+ pules throughout. ABDOMEN: Soft, nontender, and nondistended. Positive bowel sounds. No hepatosplenomegaly was noted. EXTREMITIES: Without any cyanosis, clubbing, rash, lesions or edema. NEUROLOGIC: The patient is oriented to person, place and time. Strength and sensation are grossly intact. Lab and Diagnostics Result Diagram: 03/04/17 0511 03/04/17 0511 Microbiology Name: RAMON NEWMAN Age/Sex: 71/F Attend Dr: Dl Christensen Acct: [id number] Unit: [id number] Status: ADM Jm Location: [facility] 1011-1 Re02/25/17 Disch: Specimen: [id number] Collected: 02/25/17 Status: RES Req#: [id number] Received: 02/25/17 Source: RANDOM Sp Desc : HALEY Plummer Dr: Abelardo Dickey MD Ordered: URINE CULT Procedure Result Verified Site Microbiology MARY CULT URINE Preliminary 02/26/17 PRELIMINARY ID GRAM NEGATIVE JEFFERSON ID AND SENS TO FOLLOW COLONY COUNT/QUANTITY >100,000 CFU/ml X-Rays, CTs and MRIs PATIENT NAME: RAMON NEWMAN MR#: [id number] LOCATION: [facility] ORDERING PHYS: Livier Irving MD DATE OF SERVICE: 02/25/17 1530 US RENAL SONOGRAM IMPRESSION: 1. Bilateral hydronephrosis and ureterectasis without obstructing lesion identified. Findings discussed with Dr. Moya by the home health clinician at 4:20 pm on 02/25/2017. At his request the patient will proceed to the emergency department. 2. Bilateral chronic renal disease. Dictated by: Daniel Hunt M.D. on 02/25/2017 at 16:29 Approved by: Daniel Hunt M.D. on 02/25/2017 at 16:[address] PELVIS WITHOUT CONTRAST on 12/23/2016 IMPRESSION: 1. No right hip fracture is evident. If there remains high clinical concern for a subtle right hip fracture, please consider obtaining an MRI of the hip for better evaluation. 2. Mild to moderate degenerative changes and osteopenia of the imaged bony structures of the pelvis. 3. Prominent thickening of the urinary bladder wall with surrounding edema and corresponding distal bilateral hydroureter and periureteral edema is suspicious for an ascending urinary tract infection. An infiltrative/neoplastic process is felt to be less likely, but cannot be completely excluded. Please correlate clinically. Dictated by: Satya Mccarthy M.D. on 12/23/2016 at 15:17 Approved by: Satya Mccarthy M.D. on 12/23/2016 at 15:25 Additional Diagnostics DATE OF SURGERY: 02/28/2017 PREOPERATIVE DIAGNOSIS(ES): Bilateral hydronephrosis. POSTOPERATIVE DIAGNOSIS(ES): Bilateral hydronephrosis. PROCEDURE PERFORMED: 1. Cystoscopy and bilateral retrograde pyelograms. 2. Bilateral ureteral stent placement. 3. Pelvic exam. SURGEON: Alexandria Alvarez MD. Plan Impression 1. Acute kidney injury on chronic kidney disease. - Status post bilateral ureteral stent placement. - Continue IV antibiotics for Escherichia coli UTI. - Renally dose medications, avoid nephrotoxins. - Barakat catheter removed. Dark color urine reported. - Repeat UA. 2. Chronic kidney disease, stage V, secondary to chronic NSAID use - Avoid nephrotoxins. - No urgent dialysis indicated at this moment. - If patient is ready to be discharged, she will follow up with her primary electrophysiology technician. 3. And gap metabolic acidosis - Continue sodium bicarbonate. 4. Anemia of chronic kidney disease and iron deficiency anemia - s/p IV iron and aranesp. 5. Secondary hyperparathyroidism. - Continue PhosLo. PTH is within range in the setting of stage 5 chronic kidney disease. 6. Hypertension - Continue Norvasc 5 mg once a day - Discontinued Coreg. - Continue to monitor blood pressure and heart rate. Trisha Chowdary MD Mar 04, 2017 15:12
--- NOTE | 2017-03-04 15:47 | NUR ---
MARQUITA Signed @ 7513PM
[2017-03-04 17:20] VITALS: BP 92/54; PULSE 74; RESP 18; O2SAT 96
--- NOTE | 2017-03-04 17:57 | NUR ---
Urine Pt still having incontinence and urinating in briefs rather than calling to get up to BSC as previously had. When changing brief, it was dark red-cola colored. Dr. Wang paged and advised bladder scan and UA. Bladder scan was 0 ml. MD aware. Got pt up to BSC for sample and when removing brief pt urinated on floor rather than BSC. Urine was dark and bloody. Paged nephrology and they advised contacting urology. Paged Dr. Padgett and she looked at scans and pt history and advised that it was probably normal and to monitor. No need for UA. MD declined to come see pt at this time. Pt had low BP after getting up, IV fluids running and hospitalist notified, no new orders. Continue q1 hour monitoring of pt.
[2017-03-04 19:42] VITALS: BP 117/67; PULSE 72; RESP 18; O2SAT 96
--- NOTE | 2017-03-04 20:52 | NUR ---
Ambulation Pt ambulated in hallway about 50ft at 2044. Addendum: 03/04/17 at 2051 by ARTIE CAPELLAN CNA Amended: Links added.
[2017-03-04] MEDS: diphenhydrAMINE 25 mg Capsule PO PRN (21:20)
[2017-03-05 00:10] VITALS: BP 110/61; PULSE 74; RESP 18; O2SAT 97
[2017-03-05] MEDS: Heparin 5,000 Unit/mL Inj SUBQ SCH ×2 (00:12→09:29)
--- NOTE | 2017-03-05 00:13 | PCM.PNMED ---
Subjective Date of Service Mar 05, 2017 Subjective The patient got up today and was incontinent of copious amounts of bloody urine on the floor of the patient's room. Patient does not feel well today. Has no other specific complaints. Exam Vital Signs Vital Sign - Last Date Time Temp Pulse Resp B/P Pulse Ox O2 Delivery O2 Flow Rate FiO2 03/04/17 21:30 Supplement Oxygen 03/04/17 19:42 36.8 72 18 117/67 96 02/28/17 13:15 8 Intake and Output 03/04/17 03/04/17 03/05/17 Cumulative From/Thru 15:00 23:00 07:00 02/25/17 17:03 - 03/04/17 17:57 Intake Total 2008 ml 48576 ml Output Total 528 ml 52784 ml Balance 1480 ml 6738 ml Intake Oral 800 ml 7076 ml IV Total 1208 ml 9986 ml Output Urine Total 528 ml 30643 ml # Voids 3 # Bowel Movements 6 Exam General: The patient is lying supine in bed in no apparent distress. HEENT: Head is atraumatic and normocephalic. Eyes: Pupils are equally round and reactive to light and accommodation. Extraocular muscles are intact. Sclera are white, anicteric. Subconjunctival mucosa is pink. Ears and nose are unremarkable. Oropharynx: There is no mucosal lesions, there is no thrush, there is no pharyngitis. Neck: Is supple, there are no nodes, or masses or tenderness. Chest: Is clear to auscultation and percussion. There are no rales, rhonchi, wheezes or rubs. Heart: Rate, rhythm is regular. There is no murmur, rub or gallop. Abdomen: Good bowel sounds are present. Abdomen is obese, soft, nontender, no organomegaly or masses were appreciated. Extremities: Are symmetrical and well perfused. There is no edema, there is no cellulitis, no rash. Neurologic: There are no focal neurological deficits. Cranial nerves II through XII are intact. There are no sensory or motor deficits. Patient remains pleasantly confused and forgetful. However, she presented a more lucid and confusion appears to be slightly improved. Psychiatric: Patients mood is calm and shows no sign of agitation. Genital: Deferred Rectal: Deferred Lab and Diagnostics Result Diagram: 03/04/17 0511 03/04/17 0511 Microbiology Name: RAMON NEWMAN Age/Sex: 71/F Attend Dr: Dl Christensen Acct: [id number] Unit: [id number] Status: ADM Jm Location: [facility] 1011-1 Re02/25/17 Disch: Specimen: [id number] Collected: 02/25/17 Status: RES Req#: [id number] Received: 02/25/17 Source: RANDOM Sp Desc : HALEY Plummer Dr: Abelardo Dickey MD Ordered: URINE CULT Procedure Result Verified Site Microbiology MARY CULT URINE Preliminary 02/26/17-828 PRELIMINARY ID GRAM NEGATIVE JEFFERSON ID AND SENS TO FOLLOW COLONY COUNT/QUANTITY >100,000 CFU/ml X-Rays, CTs and MRIs PATIENT NAME: RAMON NEWMAN MR#: [id number] LOCATION: [facility] ORDERING PHYS: Livier Irving MD DATE OF SERVICE: 02/25/17 1530 US RENAL SONOGRAM IMPRESSION: 1. Bilateral hydronephrosis and ureterectasis without obstructing lesion identified. Findings discussed with Dr. Moya by the missile facilities repairer at 4:20 pm on 02/25/2017. At his request the patient will proceed to the emergency department. 2. Bilateral chronic renal disease. Dictated by: Daniel Hunt M.D. on 02/25/2017 at 16:29 Approved by: Daniel Hunt M.D. on 02/25/2017 at 16:[address] PELVIS WITHOUT CONTRAST on 12/23/2016 IMPRESSION: 1. No right hip fracture is evident. If there remains high clinical concern for a subtle right hip fracture, please consider obtaining an MRI of the hip for better evaluation. 2. Mild to moderate degenerative changes and osteopenia of the imaged bony structures of the pelvis. 3. Prominent thickening of the urinary bladder wall with surrounding edema and corresponding distal bilateral hydroureter and periureteral edema is suspicious for an ascending urinary tract infection. An infiltrative/neoplastic process is felt to be less likely, but cannot be completely excluded. Please correlate clinically. Dictated by: Satya Mccarthy M.D. on 12/23/2016 at 15:17 Approved by: Satya Mccarthy M.D. on 12/23/2016 at 15:25 Additional Diagnostics DATE OF SURGERY: 02/28/2017 PREOPERATIVE DIAGNOSIS(ES): Bilateral hydronephrosis. POSTOPERATIVE DIAGNOSIS(ES): Bilateral hydronephrosis. PROCEDURE PERFORMED: 1. Cystoscopy and bilateral retrograde pyelograms. 2. Bilateral ureteral stent placement. 3. Pelvic exam. SURGEON: Alexandria Alvarez MD. Assessment & Plan The patient is a 71-year-old female with past medical history remarkable for recent diagnosis of stage IV chronic kidney disease with concomitant distal bilateral hydroureter seen on CT imaging who presents to the [facility] emergency Department after ultrasound imaging showed bilateral hydronephrosis. # Acute urinary tract infection - Patient denies complaints of urinary tract infection including dysuria, increased urgency or frequency - On admission UA shows WBCs > 50, with large leukocyte esterase, and positive nitrites with moderate bacteria and moderate epithelial cells - UA was sent for culture and is positive for greater than 100,000 gram- negative rods which cultured out as Escherichia coli. - Prior hospitalization for urinary tract infection showed cultures positive for Escherichia coli with good sensitivities - The patient was started on Rocephin IV - Avoid nephrotoxic agents - Continue Rocephin, however as renal function does not appear to be improving will decrease dose from 2 g to 1 g IV daily # Acute on chronic bilateral hydronephrosis - Patient denies worsening back or flank pain or inability to empty bladder, patient describes chronic urinary incontinence - Prior CT imaging (impression included above) at the time of hospitalization on December 23, 2016 described thickening of the bladder wall and distal bilateral hydroureter making chronic kidney disease due to urinary obstruction a possibility given worsening hydronephrosis seen on ultrasound today - Urology was consulted and Dr. Diez saw the patient initially - The patient was taken to surgery by Dr. Alexandria Alvarez who performed the following: Cystoscopy and bilateral retrograde pyelograms, bilateral ureteral stent placement, and a pelvic exam. Patient is postop day #3. Postoperatively she had an indwelling Barakat catheter she has some hematuria. The hematuria is improving. Barakat catheter has been removed and will check postvoid residuals. # Hyperkalemia, present at the time of admission. Active and improved to 4.4 and now 4.7 today. - Potassium at admission is 5.8, likely elevated secondary to chronic kidney disease - Kayexalate one time dose given at admission. The potassium is now 4.7. - We will continue to Monitor # Chronic kidney disease stage V, present of the time admission. Active - Creatinine at admission is 4.38 which appears to be an approximate baseline when compared to prior hospitalization in December 23, 2016 to December 29, 2016 - Review of records indicate a baseline creatinine of 1.4-1.5 at approximately 5 years ago - At prior hospitalization chronic kidney disease was thought to be due to chronic NSAID use as Patient described chronic use of Naproxen every 4 hours for the last several years to treat chronic arthritis and gout joint pain - Prior CT imaging (impression included above) at the time of hospitalization on December 23, 2016 described thickening of the bladder wall and distal bilateral hydroureter making chronic kidney disease due to urinary obstruction a possibility given worsening hydronephrosis seen on ultrasound today - Calcium acetate 667 mg 3 times a day for phosphate binding - Patient was previously started on oral sodium bicarbonate likely by patient's temp recruiter , this has been restarted. - Nephrology consultation and follow-up appreciated. Their time and expertise appreciated. Dr. MARIA TERESA Arzola's note appreciated and patient will be following up with Dr. Everett after discharge. - Nephrology as ordered continued IV fluids on the patient for now # Anemia secondary to chronic kidney disease - Previously diagnosed as secondary to chronic kidney disease with low TIBC and normal iron and ferritin - Nephrology consulted and we appreciate their recommendations, patient was given a dose of Ferrlecit and Aranesp today 03/02/2017. # Chronic hyperparathyroidism - Secondary to chronic kidney disease noted on last admission - initiate PhosLo 3 times a day - Encourage vitamin D supplementation # Chronic interstitial nephritis - UA shows small amount of occult blood with 3-10 RBCs - likely will need baseline protein creatinine ratio however ongoing UTI with increased WBC and bacteria is unlikely to give fair baseline assessment - Nephrology consulted and we appreciate to recommendations Disposition: As the patient's states that transfer to long-term facility is not a good option as the patient will not participate in any recommended activities. The requested the patient come home with him when she is stable with home health services. However, the works 10 hour days. I will consult health care social worker to help arrange for patient to have a home health RN 3 times a week for 4 weeks for help with her complex medical problems vital signs taking physical assessment and medication dispensing. I will ask home health to provide physical therapy with a frequency of 2 times a week for 4 weeks to help with level balance and strengthening. I will ask for a home health aide for assistance with bathing. And will also consult a [employer] for episode providing caregiver resources, respite options etc. Dr. Belem Matos will follow in a.m. Pain Evaluation: Adequate Pain Control GI Prophylaxis: Not indicated VTE Prophylaxis: Sub-Q Heparin (Unfractionated), SCDs VTE Mechanical Devices: Intermittant Pneumatic CD Resuscitation Status: CPR: Attempt Resuscitation Dl Christensen MD Mar 05, 2017 00:13
[2017-03-05] MEDS: 0.9% Sodium Chloride 1,000 ML IV SCH ×2 (01:30→12:10)
[2017-03-05 06:28] VITALS: BP 103/64; PULSE 68; RESP 18; O2SAT 99
[2017-03-05 06:35] LABS: Mean Corpuscular Hemoglobin 29.9 pg (27.0-35.0); Mean Corpuscular Volume 97.2 fL (81-100); Platelet Count 315 bil/L (150-400)
--- NOTE | 2017-03-05 06:39 | NUR ---
NOC PT has not slept well tonight. PT given benadryl at HS per request and it was ineffective. Called and got a new order for melatonin that took some time to work, but did eventually. PT has been appropriate and oriented. Denies any pain. Afebrile tonight. Continued with IV hydration. PT continues with Na Bicarb po for metabolic acidosis. Takes pills without difficulty. PT is incontinent or urine. URine continues to remain a light brownish/red. was notified of this yesterday. VS stable without hypotension or tachycardia. Receiving abx. PT states that she will be able to care for herself at home when her is not there and will use a BSC and have him "put out food" for her. Continue at this time with current POC.
[2017-03-05 08:17] LABS: BASOPHILS % (AUTO) 1 % (0-3); EOSINOPHILS % (AUTO) 2 % (0-5); MONOCYTES % (AUTO) 10 % (4-12); NEUTROPHILS % (AUTO) 65 % (40-74)
[2017-03-05] MEDS: cefTRIAXone Inj 1,000 MG in Dextrose 5% Minibag Plus 50 ML IV SCH (09:27)
[2017-03-05 11:22] VITALS: BP 96/62; PULSE 64; RESP 18; O2SAT 97
--- NOTE | 2017-03-05 11:32 | PCM.PNNEPH ---
Subjective Date of Service Mar 05, 2017 Subjective BP on the low side. Bloody urine noted. Urology notified, continue to monitor. Pt has no CP/SOB/F/C/N/V. Exam Vital Signs Vital Sign - Last Date Time Temp Pulse Resp B/P Pulse Ox O2 Delivery O2 Flow Rate FiO2 03/05/17 11:22 36.9 64 18 96/62 97 Room Air 02/28/17 13:15 8 Intake and Output 03/04/17 03/04/17 03/05/17 Cumulative From/Thru 15:00 23:00 07:00 02/25/17 17:03 - 03/05/17 06:43 Intake Total 2008 ml 1920 ml 07306 ml Output Total 528 ml 80821 ml Balance 1480 ml 1920 ml 8658 ml Intake Oral 800 ml 708 ml 7784 ml IV Total 1208 ml 1212 ml 67393 ml Output Urine Total 528 ml 84472 ml # Voids 4 7 # Bowel Movements 0 6 Exam GENERAL: The patient in no apparent distress. HEENT: Head is normocephalic and atraumatic. Extraocular muscles are intact. Pupils are equal, round, and reactive to light and accommodation. NECK: Supple, no elevation of JVD, No carotid bruits. No lymphadenopathy or thyromegaly. LUNGS: Clear to auscultation, equal breath sounds bilaterally, no wheezing, no rhonchi no rales. HEART: Normal S1/S2, Regular rate and rhythm, no murmurs, rubs or gallops. 2+ pules throughout. ABDOMEN: Soft, nontender, and nondistended. Positive bowel sounds. No hepatosplenomegaly was noted. EXTREMITIES: Without any cyanosis, clubbing, rash, lesions or edema. NEUROLOGIC: The patient is oriented to person, place and time. Strength and sensation are grossly intact. Lab and Diagnostics Result Diagram: 03/05/17 0529 03/05/17 0529 Microbiology Name: RAMON NEWMAN Age/Sex: 71/F Attend Dr: Dl Christensen Acct: [id number] Unit: [id number] Status: ADM Jm [place] [facility] [place]1-1 Re02/25/17 Disch: Specimen: [id number] Collected: 02/25/17 Status: RES Patsy#: [id number] Received: 02/25/17 Source: RANDOM Sp Desc : PP Subm Dr: Abelardo Dickey MD Ordered: URINE CULT Procedure Result Verified Site Microbiology MARY CULT URINE Preliminary 02/26/17 PRELIMINARY ID GRAM NEGATIVE JEFFERSON ID AND SENS TO FOLLOW COLONY COUNT/QUANTITY >100,000 CFU/ml X-Rays, CTs and MRIs PATIENT NAME: RAMON NEWMAN MR#: [id number] LOCATION: [facility] ORDERING PHYS: Livier Irving MD DATE OF SERVICE: 02/25/17 1530 US RENAL SONOGRAM IMPRESSION: 1. Bilateral hydronephrosis and ureterectasis without obstructing lesion identified. Findings discussed with Dr. Moya by the churn drill operator at 4:20 pm on 02/25/2017. At his request the patient will proceed to the emergency department. 2. Bilateral chronic renal disease. Dictated by: Daniel Hunt M.D. on 02/25/2017 at 16:29 Approved by: Daniel Hunt M.D. on 02/25/2017 at 16:[address] PELVIS WITHOUT CONTRAST on 12/23/2016 IMPRESSION: 1. No right hip fracture is evident. If there remains high clinical concern for a subtle right hip fracture, please consider obtaining an MRI of the hip for better evaluation. 2. Mild to moderate degenerative changes and osteopenia of the imaged bony structures of the pelvis. 3. Prominent thickening of the urinary bladder wall with surrounding edema and corresponding distal bilateral hydroureter and periureteral edema is suspicious for an ascending urinary tract infection. An infiltrative/neoplastic process is felt to be less likely, but cannot be completely excluded. Please correlate clinically. Dictated by: Satya Mccarthy M.D. on 12/23/2016 at 15:17 Approved by: Satya Mccarthy M.D. on 12/23/2016 at 15:25 Additional Diagnostics DATE OF SURGERY: 02/28/2017 PREOPERATIVE DIAGNOSIS(ES): Bilateral hydronephrosis. POSTOPERATIVE DIAGNOSIS(ES): Bilateral hydronephrosis. PROCEDURE PERFORMED: 1. Cystoscopy and bilateral retrograde pyelograms. 2. Bilateral ureteral stent placement. 3. Pelvic exam. SURGEON: Alexandria Alvarez MD. Plan Impression 1. Acute kidney injury on chronic kidney disease. - Status post bilateral ureteral stent placement. - Continue IV antibiotics for Escherichia coli UTI. - Renally dose medications, avoid nephrotoxins. - Barakat catheter removed. Dark color urine reported. - Repeat PVR. 2. Chronic kidney disease, stage V, secondary to chronic NSAID use - Avoid nephrotoxins. - No urgent dialysis indicated at this moment. - If patient is ready to be discharged, she will follow up with her primary manager film. 3. And gap metabolic acidosis - Continue sodium bicarbonate. 4. Anemia of chronic kidney disease and iron deficiency anemia - s/p IV iron and aranesp. - will order weekly aranesp subQ. 5. Secondary hyperparathyroidism. - Continue PhosLo. - PTH is within range in the setting of stage 5 chronic kidney disease. 6. Elevated BP. - resolved, d/c all BP meds. Trisha Chowdary MD Mar 05, 2017 11:32
[2017-03-05 12:16] VITALS: BP 124/67; PULSE 64
--- NOTE | 2017-03-05 13:47 | NUR ---
Social Work: Discharge D: EMR reviewed. Pt is on day 8 of hospitalization. Per MD in AM multi-disciplinary rounds, pt is medically stable and will discharge today. RN and MD expressed concern for pt discharging home without caregiver because spouse works 12 hours a day. Pt is set to open with [facility] for RN PT MANAGER MARKETING [employer]UNICATIONS SUPERINTENDENT STORAGE [employer] 03/06. REY placed T/C to spouse to explain scope of HH care and confirm does not provide private caregiving services. REY asked if spouse or family would be available to help care for pt while pt recovers. SW connected pt's spouse with Marcie from [facility] (per his request) to consult regarding caregiving options and respite options. Pt's spouse confirms that pt has a FWW and BSC at home to use. Spouse stated that he set up a private caregiver through [facility] for 6 hours a day starting 03/07 at 1000am. SW left voicemail with Iram from [facility] to confirm pt's discharge. REY faxed F2F and facesheet to [facility]. REY relayed this information to RN and MD and determined pt has adequate care through and private caregiver for safe discharge. Spouse confirmed he will transport pt home today at 1500 via POV. A: Pt for whom HH has been deemed medically necessary P: Spouse confirmed he will transport pt home today at 1500 via POV. Pt to open with [facility] for RN/PT/SUPERINTENDENT STORAGE AREA/MANAGER MARKETING COMMUNICATIONS. Pt to open with [facility] 6 hours a day starting 03/07 at 1000am. RN and MD notified. All agreeable to plan. REY faxed F2F to [facility] and left voicemail with Iram from [facility] confirming discharge. LIZY Barragan Addendum: 03/05/17 at 1416 by ARACELI MAY REY received T/C from Iram at [facility] confirming they received the fax and all information needed to open with pt 03/06. LIZY Barragan
--- NOTE | 2017-03-05 14:13 | PCM.DIMED ---
Discharge Instructions Date of Service Mar 05, 2017 Dates of Hospitalization Feb 25, 2017 at 21:47 Discharge Diagnosis Discharge Diagnosis UTI Acute on chronic bilateral hydronephrosis CKD, stage 5 Hyperkalemia Diet Discharge Diet: Renal Diet Activity Discharge Activity: No restrictions, Other (As per receiving facility) Call your provider Call your provider for: Fever or Chills, Shortness of breath, Bleeding, Chest pain, Vomitting, Excessive diarrhea Patient Instructions Follow-up plan DC to [facility] RN, PT, SPIDER ASSEMBLER, UNIX DEVELOPER Follow-up with PCP in: 1 week Additional Information Follow up with your occupational therapy supervisor as soon as possible You have an urology follow-up appt set for 03/18/17, check-in at 12:45 PM for a 1 PM appt Belem Matos MD Mar 05, 2017 14:13
[2017-03-05] MEDS ORDERED: CEPH-511 PO (14:18)
[2017-03-05] MEDS ORDERED: CALC667T5 PO (14:18)
[2017-03-05] MEDS ORDERED: FERR-74 PO (14:18)
--- NOTE | 2017-03-05 14:24 | PCM.DC.MED ---
Discharge Summary Date of Service Mar 05, 2017 Dates of Hospitalization Date of Hospital Admission Feb 25, 2017 at 21:47 Date of Discharge: Mar 05, 2017 Providers: Admitting Physician: Dl Christensen MD Primary Care Physician: Livier Irving MD Attending Physician: Dl Christensen MD Diagnosis at Time of Discharge Diagnosis at Time of Discharge UTI Acute on chronic bilateral hydronephrosis CKD, stage 5 Hyperkalemia Procedures XRay, CTs & MRIs PATIENT NAME: RAMON NEWMAN MR#: [id number] LOCATION: [facility] ORDERING PHYS: Livier Irving MD DATE OF SERVICE: 02/25/17 1530 US RENAL SONOGRAM IMPRESSION: 1. Bilateral hydronephrosis and ureterectasis without obstructing lesion identified. Findings discussed with Dr. Moya by the rn perinatal at 4:20 pm on 02/25/2017. At his request the patient will proceed to the emergency department. 2. Bilateral chronic renal disease. Dictated by: Daniel Hunt M.D. on 02/25/2017 at 16:29 Approved by: Daniel Hunt M.D. on 02/25/2017 at 16:[address] PELVIS WITHOUT CONTRAST on 12/23/2016 IMPRESSION: 1. No right hip fracture is evident. If there remains high clinical concern for a subtle right hip fracture, please consider obtaining an MRI of the hip for better evaluation. 2. Mild to moderate degenerative changes and osteopenia of the imaged bony structures of the pelvis. 3. Prominent thickening of the urinary bladder wall with surrounding edema and corresponding distal bilateral hydroureter and periureteral edema is suspicious for an ascending urinary tract infection. An infiltrative/neoplastic process is felt to be less likely, but cannot be completely excluded. Please correlate clinically. Dictated by: Satya Mccarthy M.D. on 12/23/2016 at 15:17 Approved by: Satya Mccarthy M.D. on 12/23/2016 at 15:25 Other Diagnostics DATE OF SURGERY: 02/28/2017 PREOPERATIVE DIAGNOSIS(ES): Bilateral hydronephrosis. POSTOPERATIVE DIAGNOSIS(ES): Bilateral hydronephrosis. PROCEDURE PERFORMED: 1. Cystoscopy and bilateral retrograde pyelograms. 2. Bilateral ureteral stent placement. 3. Pelvic exam. SURGEON: Alexandria Alvarez MD. Brief History The patient is a 71-year-old female with past medical history remarkable for recent diagnosis of stage IV chronic kidney disease with concomitant distal bilateral hydroureter seen on CT imaging who presents to the [facility] emergency Department after ultrasound imaging showed bilateral hydronephrosis. The patient denies any new acute changes in her urinary system including no pain on urination, increased urgency or increased frequency of urination, back or flank pain or hematuria. 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 Irving, who asked that the patient be sent to [facility] for evaluation. The patient denies being seen by another physician other than Dr. Irving and her primary care physician Dr. Madera. She was recently started on a new medication sodium bicarbonate. Urology was consulted from the [facility] emergency Department where the patient was diagnosed with a urinary tract infection and placed on Rocephin antibiotics. The report from the emergency department is that urology feels uncomfortable placing ureteral stents for decompression given an ongoing urinary tract infection. Patient reportedly has a new patient appointment scheduled with Dr. Chowdary of nephrology on 03/16/2017 to discuss her future needs for hemodialysis given her stage IV chronic kidney disease. Hospital Course # Acute urinary tract infection - Patient denies complaints of urinary tract infection including dysuria, increased urgency or frequency - On admission UA shows WBCs > 50, with large leukocyte esterase, and positive nitrites with moderate bacteria and moderate epithelial cells - UA was sent for culture and is positive for greater than 100,000 gram- negative rods which cultured out as Escherichia coli. - Prior hospitalization for urinary tract infection showed cultures positive for Escherichia coli with good sensitivities - The patient was started on Rocephin IV 2 g daily on February 26, on March 03 decreased dose from 2 g to 1 g IV daily due to renal function - will do an additional week of oral Keflex as outpt - Avoid nephrotoxic agents # Acute on chronic bilateral hydronephrosis - Patient denies worsening back or flank pain or inability to empty bladder, patient describes chronic urinary incontinence - Prior CT imaging at the time of hospitalization on December 23, 2016 described thickening of the bladder wall and distal bilateral hydroureter making chronic kidney disease due to urinary obstruction a possibility given worsening hydronephrosis seen on ultrasound this admission - Urology was consulted and Dr. Diez saw the patient initially - The patient was taken to surgery by Dr. Alexandria Alvarez who performed the following: Cystoscopy and bilateral retrograde pyelograms, bilateral ureteral stent placement, and a pelvic exam. - Postoperatively she had an indwelling Barakat catheter and some hematuria. Barakat catheter has been removed and postvoid residuals on the day of discharge is 115 cc # Hyperkalemia, present at the time of admission. Resolved - Potassium at admission is 5.8, likely elevated secondary to chronic kidney disease - Kayexalate one time dose given at admission. Subsequent otassium 4.7 and is 4.4 on the day of discharge # Chronic kidney disease stage V, present of the time admission. Active. Chronic interstitial nephritis - Creatinine at admission is 4.38 which appears to be an approximate baseline when compared to prior hospitalization in December 23, 2016 to December 29, 2016 - Review of records indicate a baseline creatinine of 1.4-1.5 at approximately 5 years ago - At prior hospitalization chronic kidney disease was thought to be due to chronic NSAID use as Patient described chronic use of Naproxen every 4 hours for the last several years to treat chronic arthritis and gout joint pain - Prior CT imaging (impression included above) at the time of hospitalization on December 23, 2016 described thickening of the bladder wall and distal bilateral hydroureter making chronic kidney disease due to urinary obstruction a possibility given worsening hydronephrosis seen on ultrasound today - Calcium acetate 667 mg 3 times a day for phosphate binding - Patient was previously started on oral sodium bicarbonate likely by patient's lockstitch front edge tape sewer , this has been restarted. - Nephrology consultation and follow-up appreciated. patient will be following up with Dr. Everett after discharge. - per Nephrology she was on IV fluids for much of hospital stay # Anemia secondary to chronic kidney disease - Previously diagnosed as secondary to chronic kidney disease with low TIBC and normal iron and ferritin - Nephrology consulted and we appreciate their recommendations, patient was given a dose of Ferrlecit and Aranesp 03/02/2017 and has been placed on oral ferrous sulfate - Nephrology will order weekly aranesp subQ. # Chronic hyperparathyroidism - Secondary to chronic kidney disease noted on last admission - initiate PhosLo 3 times a day - Encourage vitamin D supplementation # Elevated BP resolved and blood pressure somewhat low, Nephrology d/c'd all BP meds. Disposition: As the patient's states that transfer to group home facility is not a good option as the patient will not participate in any recommended activities. The requested the patient come home with him when she is stable with home health services. The works 10 hour days but has arranged 4 hours a day from a private caregiver. She will also have home health services to include home health RN 3 times a week for 4 weeks for help with her complex medical problems vital signs taking physical assessment and medication dispensing and physical therapy with a frequency of 2 times a week for 4 weeks to help with level balance and strengthening. Also a home health aide for assistance with bathing. And consult a PAINT STOCK CLERK for episode providing caregiver resources, respite options etc. Exam Vital Signs (Last) Date Time Temp Pulse Resp B/P Pulse Ox O2 Delivery O2 Flow Rate FiO2 03/05/17 12:16 64 124/67 03/05/17 11:22 36.9 18 97 Room Air 02/28/17 13:15 8 Exam General: Alert and oriented, no acute distress Heart: Regular Lungs: Clear Abdomen: Soft, non-tender Extremities: No pedal edema Test 02/25/17 19:20 02/25/17 20:03 02/25/17 21:55 02/27/17 05:56 Lipase 58U/L (13-60) Parathyroid Hormone (Intact) 173pg/mL (15-65) Urine Color Yellow (YELLOW) Urine Appearance Turbid (CLEAR,HAZY) Urine pH 5.5 (5.0-8.0) Urine Specific [place] 1.015 (1.003-1.035) Urine Protein 100mg/dL (NEG,TRACE) Urine Glucose (UA) Negativemg/dL (NEGATIVE) Urine Ketones Negativemg/dL (NEGATIVE) Urine Occult Blood Small (NEGATIVE) Urine Nitrite Positive (NEGATIVE) Urine Bilirubin Negative (NEGATIVE) Urine Urobilinogen Normalmg/dL (NORMAL) Urine Leukocyte Esterase Large (NEGATIVE) Urine RBC 3-10/hpf (0-2) Urine WBC >50/hpf (0-5) Urine Epithelial Cells Moderate/hpf (NONE-MOD) Urine Crystals None seen (NONE SEEN) Urine Bacteria Moderate/hpf (NONE-FEW) Urine Hyaline Casts None/lpf (NONE) Urine Granular Casts None seen (NONE SEEN) Urine Waxy Casts None seen (NONE SEEN) Urine Red Blood Cell Casts None seen (NONE SEEN) Urine White Blood Cell Casts None seen (NONE SEEN) Urine Mucus None seen (None Seen) Urine Trichomonas None seen (NONE SEEN) Urine Yeast None (NONE SEEN) Urinalysis Comment None Urine Culture Reflexed Indicated Lactic Acid Level 0.6mmol/L (0.4-2.0) Phosphorus Level 5.3mg/dL (2.5-4.9) Test 03/01/17 05:19 03/05/17 05:29 Reticulocyte Count,Calculated 1.3% (0.6-2.6) Iron Level 22ug/dL (35-150) Total Iron Binding Capacity 225ug/dL (250-450) Percent Iron Saturation 10%sat (15-50) Unsaturated Iron Binding 203.4ug/dL Ferritin 161ng/mL (13-150) Vitamin B12 Level 580pg/mL (211-946) Folate 16.6ng/mL (>3.0) White Blood Count 8.0th/mm3 (3.8-10.1) Red Blood Count 2.88mil/mm3 (3.90-5.20) Hemoglobin 8.6g/dL (12.0-15.6) Hematocrit 28.0% (35.0-46.0) Mean Corpuscular Volume 97.2fL (81-100) Mean Corpuscular Hemoglobin 29.9pg (27.0-35.0) Mean Corpuscular Hemoglobin Concent 30.7% (32.0-37.0) Red Cell Distribution Width 13.0% (12.3-15.4) Platelet Count 315bil/L (150-400) Neutrophils (%) (Auto) 65% (40-74) Lymphocytes (%) (Auto) 17% (14-46) Monocytes (%) (Auto) 10% (4-12) Eosinophils (%) (Auto) 2% (0-5) Basophils (%) (Auto) 1% (0-3) Band Neutrophils % 2% (1-5) Metamyelocytes % 1% (0-0) Myelocytes % 2% (0-0) Sodium Level 138mEq/L (134-144) Potassium Level 4.4mEq/L (3.5-5.2) Chloride Level 108mEq/L (97-108) Carbon Dioxide Level 16mmol/L (18-29) Blood Urea Nitrogen 42mg/dL (8-27) Creatinine 4.13mg/dL (0.57-1.00) Estimat Glomerular Filtration Rate 15mL/min (>59) Glucose Level 102mg/dL (60-99) Calcium Level 8.4mg/dL (8.5-10.1) Magnesium Level 2.0mg/dL (1.6-2.6) Total Bilirubin 0.2mg/dL (0.0-1.2) Aspartate Amino Transf (AST/SGOT) 15U/L (0-50) Alanine Aminotransferase (ALT/SGPT) 11U/L (0-32) Alkaline Phosphatase 74U/L (25-165) Total Protein 6.2g/dL (6.4-8.4) Albumin 2.1g/dL (3.4-5.0) Microbiology Results Name: NEWMANRAMON Age/Sex: 71/F Attend Dr: Dl Christensen Acct: [id number] Unit: [id number] Status: [facility] [place] [facility] [place] Re02/25/17 Disch: Specimen: [id number] Collected: 02/25/17 Status: RES Req#: [id number] Received: 02/25/17 Source: RANDOM Sp Desc : PP Subm Dr: Abelardo Dickey MD Ordered: URINE CULT Procedure Result Verified Site Microbiology MARY CULT URINE Preliminary 02/26/17 PRELIMINARY ID GRAM NEGATIVE JEFFERSON ID AND SENS TO FOLLOW COLONY COUNT/QUANTITY >100,000 CFU/ml Discharge Medications Discharge Medications Calcium Acetate (Calcium Acetate) 667 Mg Tablet 667 MG PO TIDWM Prescribed by: MONIQUE MATOS MD Cephalexin (Keflex) 250 Mg Capsule 250 MG PO BID Prescribed by: MONIQUE MATOS MD Ferrous Sulfate (Feosol) 325 Mg Tablet 325 MG PO BIDWM Prescribed by: MONIQUE MATOS MD Multivitamin (Multi Vitamin Daily) 1 Each Tablet 1 EACH PO DAILY (Reported) Sodium Bicarbonate (Sodium Bicarbonate) 650 Mg Tablet 1,300 MG PO BID (Reported ) As needed Zinc Oxide (Desitin) 60 Gm Cream..g. 1 APPLIC TOP DAILY PRN PRN SKIN BREAKDOWN ( Reported) Followup Plan Discharge Diet: Renal Diet Discharge Activity: No restrictions, Other (As per receiving facility) Follow-up with PCP in: 1 week Monique Matos MD Mar 05, 2017 14:24
--- NOTE | 2017-03-05 15:20 | NUR ---
Discharge To home with via private vehicle at 15:15. Steady transfer to wheelchair. IV discontinued intact. Pt and express understanding of all discharge instructions, including medications and followup. Rx faxed to [facility]. All belongings sent with pt.
[2017-03-09] MEDS ORDERED: Darbepoetin Alfa 60 mCg/0.3 mL Inj SUBQ ONE (11:35)
== END 2017-03-05 15:15 | disposition home health service (06) | DRG 690 ==
LOC: SED 16:58 → OSC 21:47 → OBSVTOIN 21:47 → OSC 22:51
PROVIDERS: ADMIT Internal Medicine Infectious Disease; ATTEND Internal Medicine
PROC: BT141ZZ Fluoroscopy of Kidneys, Ureters and Bladder using Low Osmolar Contrast (ICD-10-PCS; 2017-02-28)
PROC: 0T788DZ Dilation of Bilateral Ureters with Intraluminal Device, Via Natural or Artificial Opening Endoscopic (ICD-10-PCS; principal; 2017-02-28 12:30)
DX: N13.6 Pyonephrosis (principal); E87.2 Acidosis; I12.0 Hypertensive chronic kidney disease with stage 5 chronic kidney disease or end stage renal disease; N17.9 Acute kidney failure, unspecified; N11.9 Chronic tubulo-interstitial nephritis, unspecified; E87.5 Hyperkalemia; D63.1 Anemia in chronic kidney disease; B96.20 Unspecified Escherichia coli [E. coli] as the cause of diseases classified elsewhere; F03.90 Unspecified dementia, unspecified severity, without behavioral disturbance, psychotic disturbance, mood disturbance, and anxiety; N18.5 Chronic kidney disease, stage 5; N39.498 Other specified urinary incontinence; Z88.0 Allergy status to penicillin